=== PATIENT | female | born 1945 | race Caucasian/White ===

== ENCOUNTER 2016-10-04 18:05 | Emergency (ER) | payer MEDICARE, BC ==
[~2016-10-04] VITALS: Ht 162.6 cm; Wt 97.4 kg
[2016-10-04 18:05] VITALS: Ht 162.6 cm; Wt 97.4 kg
[~2016-10-04 18:05] MED LIST: AMLO5TAB2 PO; ASPI81TA2 PO; ATOR40TA64 PO; FLUT1DIS32 IH; FURO20TA4 PO; GUAI-782 PO; HYDR-4246 PO; LORA0.5T2 PO; LOSA50TA52 PO; METO25TA6 PO; OMEP20CA10 PO; TIZA2CAP9 PO; VANC1PLA9 IV
--- OUTSIDE RECORDS SUMMARY | 2016-10-04 18:08 | XMS REPORT | Continuity of Care Document ---
Author Author [facility] Organization [facility] Address Unknown Phone Unavailable Support Name Relationship Address Phone ALFIEKIMMY Caregiver [address] [place] [address] ANDREW COLLINS MD Caregiver [address] [place], [place] [phone] JOSH MONREAL MD Caregiver [address] [place] [address] DHIRAJ CARPIO Next Of Kin [address] [place], [place] [id number] Insurance Providers Payer Name Policy Number Subscriber Name Relationship Medicare [id number] Gila Carpio 16 Self [facility] [id number] Gila Carpio 16 Self Advance Directives Directive Response Recorded Date/Time Advanced Directives Type None 07/15/14 7:33pm Ordered Resuscitation Status Full Code 07/15/14 7:13pm Resuscitation Documents on File No 07/15/14 8:18pm Chief Complaint and Reason for Visit Chief Complaint DIARRHEA Reason for Visit Pneumonia COPD (chronic obstructive pulmonary disease) Hypokalemia Diarrhea Nausea Pneumonia Diarrhea Diarrhea C. difficile colitis CADY (obstructive sleep apnea) Leukocytosis Suspected DVT (deep vein thrombosis) Problems Medical Problems Problem Onset Date Status Metabolic acidosis Unknown Resolved Pneumonia Unknown Resolved Sepsis ~06/2014 Active Hyperosmolality and hypernatremia Unknown Resolved Hypokalemia Unknown Active CAD of autologous bypass graft Unknown Active HTN (hypertension) Unknown Active Hypercholesteremia Unknown Active COPD (chronic obstructive pulmonary disease) Unknown Active GERD (gastroesophageal reflux disease) Unknown Active Depression Unknown Active Headache Unknown Active Postsurgical ovarian failure Unknown Resolved Tachycardia Unknown Active Sepsis Unknown Active Nausea Unknown Active Hyperosmolality and hypernatremia Unknown Active Hypokalemia Unknown Resolved Diarrhea Unknown Active Nausea Unknown Active Pneumonia Unknown Active Diarrhea Unknown Active Diarrhea Unknown Active C. difficile colitis Unknown Active CADY (obstructive sleep apnea) Unknown Resolved Leukocytosis Unknown Resolved Suspected DVT (deep vein thrombosis) 07/20/2014 Active Surgical Problems Problem Onset Date Recorded Date/Time Status Status post partial removal of lung Unknown 07/05/2014 12:09pm Resolved Hx of appendectomy Unknown 07/05/2014 12:09pm Resolved Medications Medication Dose Route Sig Days/Qty Instructions Order Date Discontinued Date Status Salmeterol Xinafoate/Fluticasone 1 Disk IH TWICE A DAY 06/06/0911/04 Discontinued Atorvastatin Calcium 80 Mg PO DAILY 06/06/09 10/10/09 Discontinued Diltiazem Hcl 180 Mg PO DAILY 10/10/09 Active Salmeterol Xinafoate/Fluticasone 1 Disk IH TWICE A DAY 10/10/09 Active [Cozaar] 1 Tab PO DAILY 10/10/09 07/05/14 Discontinued Metoprolol Succinate 50 Mg PO DAILY 07/05/14 Active Fluticasone Propionate 1 Puff ORAL INH TWICE A DAY 07/05/14 Active Prednisone 20 Mg PO GIVE WITH BREAKFAST 12 Days Take 3 tabs daily for 3 days, 2 tabs daily for 3 days, 1 07/12/14 07/21/14 Discontinued Levofloxacin 500 Mg PO BEFORE BREAKFAST 5 Days 07/12/14 07/21/14 Discontinued Metronidazole 500 Mg PO FOUR TIMES DAILY For c diff 28 Qty 07/21/14 Active Omeprazole 20 Mg PO BEFORE BREAKFAST For REFLUX 30 Qty breakfast). 07/21 Active Social History Social History Problem Response Recorded Date/Time Hx Substance Use No 07/15/2014 2:09pm Hx Alcohol Use N QUIT IN 198207/15/2014 2:09pm Has the pt used tobacco in the last 12 months No 07/15/2014 8:19pm Tobacco Usage none 07/05/2014 12:15pm Query Response Start Date Stop Date Smoking Status Former smoker Hospital Discharge Instructions Instructions: Care Instructions: Reason for Hospitalization: C diff colitis I was in the hospital because (patient own words): "EXPLOSIVE DIARRHEA, GENERAL ACHES, DIFFICULTY WALKING DUE TO SWOLLEN FEET" Discharge Diet: Low sodium Discharge Activity: As tolerated Follow Up Appointments: Dr Collins in 1 week [phone] Patient Instructions: Hold asa for 1 week Yogurt once a day Condition at time of discharge: Good Good fever > 101, worsening confusion General Information: n/a Condition at time of discharge: Good Plan of Care Discharge Date 07/21/14 2:35pm Disposition 01 DISCHARGED HOME, SELF-CARE Instructions/Education Provided DI for Antibiotic -- associated Colitis -- C difficile Prescriptions See Medications Section Functional Status Query Response Date Recorded Physical Hygiene Self July 21, 2014 12:45pm Disabilities Visual July 21, 2014 12:45pm Devices Used Glasses July 21, 2014 12:45pm Dressing Self July 21, 2014 12:45pm Ambulation Self July 21, 2014 12:45pm Diet Self July 21, 2014 12:45pm Mental Status Alert Oriented July 21, 2014 12:45pm Disabilities Visual July 21, 2014 12:45pm Devices Used Glasses July 21, 2014 12:45pm Physical Hygiene Self July 21, 2014 12:45pm Dressing Self July 21, 2014 12:45pm Ambulation Self July 21, 2014 12:45pm Diet Self July 21, 2014 12:45pm Allergies, Adverse Reactions, Alerts Allergen Type Severity Reaction Status Last Updated amoxicillin trihydrate Allergy Unknown Active 07/15/14 Sulfa (Sulfonamide Antibiotics) Allergy Unknown Active 07/15/14 potassium clavulanate Allergy Unknown Active 07/15/14 Immunizations Name Given Type Hx Influenza Vaccination Y March 2014 Historical Hx Pneumococcal Vaccination Y March 2014 Historical Hx Tetanus, Diptheria, Pertussis No Historical Hx Influenza Vaccination Y March 2014 Historical Hx Tetanus Diptheria No Historical Hx Tetanus, Diptheria, Pertussis No Historical Hx Tetanus Toxoid Vaccination Y unknown date Historical Vital Signs Acute Vital Signs Vital Response Date/Time Temperature (Fahrenheit) 97.1 deg F (96.8 - 99.1) Temperature (Calculated Celsius) 36.72738 degrees C (36.0 - 37.3) Temperature Source Oral Pulse Rate (adult) 79 bpm (60 - 100) Respiratory Rate 20 breaths/min (10 - 20) O2 Sat by Pulse Oximetry 90 % (90 - 100) Oxygen Delivery Method Room Air Blood Pressure 134/68 mm Hg Blood Pressure Source Automatic Cuff Height 5 ft 4 in Weight 221 lb Body Mass Index 38.0 kg/m^2 Results Test Source Date Result Interp. Ref. Range Comments Activated Partial Thromboplast Time October 10, 2009 3:25pm 31.1 SEC N 24- 36 Alanine Aminotransferase (ALT/SGPT) July 15, 2014 2:24pm 51 U/L N 9- 52 Albumin July 15, 2014 2:24pm 2.8 G/DL L 3.5-5.0 Albumin/Globulin Ratio July 15, 2014 2:24pm 1.2 RATIO N 1.1-2.2 Alkaline Phosphatase July 15, 2014 2:24pm 156 U/L H 38-126 Anion Gap July 21, 2014 4:55am 6 MEQ/L N 5-15 Arterial Blood Base Excess July 05, 2014 8:07am -16.8 MMOL/L L -2.0- 2.0 Arterial Blood HCO3 July 05, 2014 8:07am 8 MEQ/L L 22-26 Arterial Blood Oxygen Saturation July 05, 2014 8:07am 91.0 % L 95.0- 98.0 Arterial Blood Partial Pressure CO2 July 05, 2014 8:07am [address] 34-45 Arterial Blood Total CO2 July 05, 2014 8:07am 8.9 MEQ/L L 23-27 Arterial Blood pH July 05, 2014 8:07am 7.250 L 7.350-7.450 Arterial Blood pO2 at Patient Temp July 05, 2014 8:07am 71 MMHG L 80- 100 Aspartate Amino Transf (AST/SGOT) July 15, 2014 2:24pm 19 U/L N 14- 36 B-Type Natriuretic Peptide October 10, 2009 3:25pm 110 PG/ML H 15-100 BUN/Creatinine Ratio July 21, 2014 4:55am 18 RATIO N 6-26 Band Neutrophils # July 15, 2014 2:24pm 1.1 T/MM3 - Band Neutrophils % July 15, 2014 2:24pm 5.0 % N 0-6 Basophils # (Auto) July 21, 2014 4:55am 0.0 T/MM3 N 0-0.2 Basophils (%) (Auto) July 21, 2014 4:55am 0.1 % N 0-2 Blood Urea Nitrogen July 21, 2014 4:55am 11.0 MG/DL N 7-17 C. difficile Toxin B Gene (PCR) July 15, 2014 6:20pm Positive H - Has specimen been collected/obtained? Y Calcium Level July 21, 2014 4:55am 8.2 MG/DL L 8.4-10.2 Calculated Osmolality July 21, 2014 4:55am 268 MOSM/KG N 261-280 Carbon Dioxide Level July 21, 2014 4:55am 27 MEQ/L N 22-30 Chemistry Specimen Hemolysis July 21, 2014 4:55am < 15 0-25 0-25: No Hemolysis.26-70: Slight Hemolysis - can falsely elevate K and Urine Protein. 71-285: Moderate Hemolysis - can falsely elevate K, Troponin I, CA 19-9, PTH, CSF GLucose, and Urine Protein, and can falsely decrease Phenytoin. 286-999: Gross Hemolysis - can falsely elevate K, Troponin I, CA 19-9, PTH, CSF Glucose, and Urine Protine, and can falsely decrease Phenytoin. Recommend specimen recollection. Chloride Level July 21, 2014 4:55am 107 MEQ/L N 98-107 Creatinine July 21, 2014 4:55am 0.6 MG/DL L 0.7-1.2 D-Dimer July 05, 2014 6:11am 414 NG/ML H 0-230 <230 NG/ML D-DU= PRESUMPTIVE NEGATIVE FOR PE OR DVT>230 NG/ML D-DU=ADDITIONAL EVAL FOR PE OR DVT RECOMMENDED Eosinophils # (Auto) July 21, 2014 4:55am 0.2 T/MM3 N 0-0.5 Eosinophils # (Manual) July 10, 2014 11:22am 0.1 T/MM3 N 0-0.5 Eosinophils % (Manual) July 10, 2014 11:22am 1.0 % N 0-4 Eosinophils (%) (Auto) July 21, 2014 4:55am 2.5 % N 0-4 Globulin July 15, 2014 2:24pm 2.4 G/DL N 2.4-3.6 Glomerular Filtration Rate Calc July 21, 2014 4:55am 99 - Glucometer July 15, 2014 2:37pm 80 mg/dL N 65-110 Glucose Level July 21, 2014 4:55am 100 MG/DL N 65-110 Hematocrit July 21, 2014 4:55am 30.6 % L 36-46 Hemoglobin July 21, 2014 4:55am 9.7 GM/DL L 12-16 Icterus Index July 21, 2014 4:55am < 2 0-7 Immature Granulocyte # (Auto) July 21, 2014 4:55am 0.02 T/MM3 N 0.00- 0.03 Immature Granulocyte % (Auto) July 21, 2014 4:55am 0.3 % N 0.0-0.5 Influenza Type A Antigen July 05, 2014 5:48am Negative - Negative for Flu A protein antigen. Assay sensitivity is90%. Influenza Type B Antigen July 05, 2014 5:48am Negative - Negative for Flu B protein antigen. Assay sensitivity is90%. Lab Scanned Report July 02, 2014 12:29pm LAB TEST FORM REQUEST [id number] - Lipase July 15, 2014 2:24pm 55 U/L N 23-300 Lymphocytes # (Auto) July 21, 2014 4:55am 1.1 T/MM3 N 1-4.8 Lymphocytes # (Manual) July 17, 2014 4:22am 1.1 T/MM3 N 1-4.8 Lymphocytes % (Manual) July 17, 2014 4:22am 9.0 % L 23-45 Lymphocytes (%) (Auto) July 21, 2014 4:55am 16.6 % L 23-45 Magnesium Level July 20, 2014 5:24am 1.8 MG/DL N 1.6-2.3 Mean Corpuscular Hemoglobin July 21, 2014 4:55am 32.6 UUG N 26-34 Mean Corpuscular Hemoglobin Concent July 21, 2014 4:55am 31.7 GM/DL N 31-37 Mean Corpuscular Volume July 21, 2014 4:55am 102.7 UM3 H 80-100 Mean Platelet Volume July 21, 2014 4:55am 9.2 UM3 L 9.4-12.4 Metamyelocytes # July 08, 2014 4:44am 0.1 T/MM3 - Metamyelocytes % July 08, 2014 4:44am 1.0 % H 0-0 Monocytes # (Auto) July 21, 2014 4:55am 0.4 T/MM3 N 0-0.8 Monocytes # (Manual) July 16, 2014 4:32am 0.2 T/MM3 N 0-0.8 Monocytes % (Manual) July 16, 2014 4:32am 1.0 % N 0-9.0 Monocytes (%) (Auto) July 21, 2014 4:55am 6.3 % N 0-9.0 YT-Ytc-F-Type Natriuretic Peptide July 02, 2014 10:15am 527 PG/ML H 0 -175 Rule in cut points: <50 years old=450; 50-75 years old=900; >75 years old=1800; When utilizing ProBNP rule-in cut points, adjustment for impaired renal function is typically not required. Neutrophils # (Auto) July 21, 2014 4:55am 5.0 T/MM3 N 1.8-7.7 Neutrophils # (Manual) July 17, 2014 4:22am 11.5 T/MM3 H 1.8-7.7 Neutrophils % (Manual) July 17, 2014 4:22am 91.0 % H 33-66 Neutrophils (%) (Auto) July 21, 2014 4:55am 74.2 % H 33-66 Nucleated Red Blood Cells July 07, 2014 4:34am 2 - Oxygen Delivery Method (LAB) July 05, 2014 8:07am Room air - Phosphorus Level July 09, 2014 5:01am 2.1 MG/DL L 2.5-4.5 Platelet Count July 21, 2014 4:55am 154 T/MM3 N 130-400 Potassium Level July 21, 2014 4:55am 3.5 MEQ/L L 3.6-5 Prealbumin July 05, 2014 6:11am 15.8 MG/DL L 17.6-36.0 COMMENT blood in lab Procalcitonin July 09, 2014 5:01am 4.31 NG/ML PH - PCT </=0.5 ng/mL - sepsis not likely;PCT >0.5 and </=2 ng/mL - sepsis possible; PCT >2 ng/mL - sepsis likely; PCT >/=10 ng/mL - systemic inflammatory response - sepsis or septic shock highly indicated. Prothromb Time International Ratio October 10, 2009 3:25pm 1.07 N 0.88- 1.13 THERAPUTIC RANGE=2.00-3.00 FOR ANTI-THROMBOSIS THERAPUTIC RANGE=2.50- 3.50 FOR IMPLANTED VALVE RDW Standard Deviation July 21, 2014 4:55am 53.5 FL H 36.9-50.2 Reactive Lymphocytes # July 09, 2014 5:01am 0.1 T/MM3 H 0-0 Reactive Lymphocytes % July 09, 2014 5:01am 1.0 % H 0-0 Red Blood Count July 21, 2014 4:55am 2.98 M/MM3 L 4.00-5.20 Sodium Level July 21, 2014 4:55am 140 MEQ/L N 134-144 Thyroid Stimulating Hormone (TSH) July 05, 2014 6:11am 1.74 MIU/L N 0.47-4.68 COMMENT blood in lab Total Bilirubin July 15, 2014 2:24pm 0.70 MG/DL N 0.20-1.30 Total Protein July 15, 2014 2:24pm 5.2 G/DL L 6.3-8.2 Troponin I July 05, 2014 6:11am 0.036 ng/ml N 0-0.12 Turbidity July 21, 2014 4:55am < 20 0-20 Urine Amorphous Urates July 05, 2014 12:00am Few - Has specimen been collected/obtained? Y Urine Bacteria July 15, 2014 5:09pm 1+ H - Has specimen been collected/obtained? Y Urine Bilirubin July 15, 2014 5:09pm Negative - Has specimen been collected/obtained? Y Urine Blood July 15, 2014 5:09pm Negative - Has specimen been collected/obtained? Y Urine Collection Type July 15, 2014 5:09pm Voided-not cc-midstr - Has specimen been collected/obtained? Y Urine Color July 15, 2014 5:09pm Yellow - Has specimen been collected/obtained? Y Urine Culture Indicated July 15, 2014 5:09pm Cult reflexed &setup - Has specimen been collected/obtained? Y Urine Glucose (UA) July 15, 2014 5:09pm Negative - Has specimen been collected/obtained? Y Urine Hyaline Casts July 15, 2014 5:09pm 1-3 /LPF - Has specimen been collected/obtained? Y Urine Ketones July 15, 2014 5:09pm Trace H - Has specimen been collected/obtained? Y Urine Leukocyte Esterase July 15, 2014 5:09pm Negative - Has specimen been collected/obtained? Y Urine Nitrite July 15, 2014 5:09pm Positive H - Has specimen been collected/obtained? Y Urine Protein July 15, 2014 5:09pm 1+ H - Has specimen been collected/obtained? Y Urine RBC July 15, 2014 5:09pm 1-3 /HPF - Has specimen been collected/obtained? Y Urine Specific [place] July 15, 2014 5:09pm 1.025 - Has specimen been collected/obtained? Y Urine Squamous Epithelial Cells July 15, 2014 5:09pm 0-5 - Has specimen been collected/obtained? Y Urine Turbidity July 15, 2014 5:09pm Clear - Has specimen been collected/obtained? Y Urine Urobilinogen July 15, 2014 5:09pm 1.0 EU/DL - Has specimen been collected/obtained? Y Urine WBC July 15, 2014 5:09pm 3-5 /HPF - Has specimen been collected/obtained? Y Urine pH July 15, 2014 5:09pm 5.5 - Has specimen been collected/ obtained? Y Venous Blood Lactate July 05, 2014 8:20am 1.3 MMOL/L N 0.6-2.2 Vitamin B12 Level July 05, 2014 6:11am > 1000 PG/ML H 239-931 COMMENT blood in lab White Blood Count July 21, 2014 4:55am 6.8 T/MM3 N 4.5-11.0 Blood Culture Peripheral Blood July 05, 2014 8:20am NO GROWTH AFTER 5 DAYS Shiga Toxin I & II Stool July 15, 2014 6:20pm Urine Culture Urine, Straight Cath July 15, 2014 5:25pm Name: GILA CARPIO Unit #: [id number] : 1945 Sex: F Loc / Svc: MED DOS: 07/15/14 Signed Report #: [id number] DIAGNOSTIC IMAGING REPORT TYPE OF EXAM: US VENOUS DUPLEX, UPPER EXT LT Dictated By: LUC BAUER MD INDICATION: ITS.REASON: left arm swelling; hx of recent PICC to arm US VENOUS DUPLEX, UPPER EXT LT: Comparison: None FINDINGS: There is no evidence for acute deep venous thrombosis in the left arm. The left internal jugular, subclavian, axillary and paired brachial veins were evaluated; compression and augmentation were applied where possible. In addition, color and pulsed Doppler demonstrate appropriate spontaneous flow, cardiac pulsatility and variation with respiration. IMPRESSION: No evidence of acute DVT in the left upper extremity. . Procedures Procedure Status Date Provider(s) METABOLIC PANEL TOTAL CA completed 05/11/14 METABOLIC PANEL TOTAL CA completed 07/02/14 ASSAY OF NATRIURETIC PEPTIDE completed 07/02/14 FIBRIN DEGRADATION QUANT completed 07/02/14 POS AIRWAY PRESSURE CPAP completed 07/05/14 GA ABRAMS MD Encounters Encounter Location Date/Time Discharged Inpatient [facility] 07/16/14 11:56am Discharged Inpatient [facility] 07/05/14 9:55am Registered Clinic [facility] 07/02/14 10:30am Registered Clinic [facility] 05/11/14 10:24am Recent Diagnosis Pneumonia COPD (chronic obstructive pulmonary disease) Hypokalemia Diarrhea Nausea Pneumonia Diarrhea Diarrhea C. difficile colitis CADY (obstructive sleep apnea) Leukocytosis Suspected DVT (deep vein thrombosis)
--- OUTSIDE RECORDS SUMMARY | 2016-10-04 18:08 | XMS REPORT | Referral Summary ---
Author Author [facility], [facility] Organization [facility] Address Unknown Phone Unavailable Care Team Providers Care Solution Advisor Name Role Phone Jeimy Black Primary Care Physician [phone] Encounter VC Date(s): 06/23/16 - 06/23/16 [facility] [address] [place] [id number] Discharge Diagnosis: Peripheral edema Discharge Diagnosis: COPD (chronic obstructive pulmonary disease) Discharge Diagnosis: History of MRSA infection Discharge Disposition: 01-Home or Self Care Attending Physician: Paulino Horn MD Admitting Physician: Paulino Horn MD Vital Signs Most recent to 1 oldest [Reference Range]: Peripheral Pulse 69 bpm Rate [60-100 bpm] (06/23/16 3:45 PM) Blood Pressure 128/70 mmHg [90-140/60-90 mmHg] (06/23/16 3:45 PM) SpO2 90 % (06/23/16 3:45 PM) Problem List Condition Effective Dates Status Health Status Informant Alcoholism(Confirmed < 05/07/14 Resolved ) Allergic Active rhinitis(Confirmed) Asthma(Confirmed) Active Back/Shoulder/Joint Active pain(Confirmed) Bronchitis(Confirmed Active ) 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) Angina/Chest Active pain(Confirmed) COPD (chronic Active obstructive pulmonary disease)(Confirmed) Chronic pain Active syndrome(Confirmed) CAD (coronary artery Active disease)(Confirmed) Depression(Confirmed Active ) Taryn-Dontal Active Disease(Confirmed) Visual Active problems(Confirmed) Dizziness(Confirmed) Active 1 Feet/Legs Active Edema(Confirmed)2 GERD Active (gastroesophageal reflux disease)(Confirmed) High Active cholesterol(Confirme d) Hypertension(Confirm Active ed) Insomnia(Confirmed) Active Irregular heart Active rhythm(Confirmed) Migraine(Confirmed) Active Obesity(Confirmed) Active patient Overweight(Confirmed Active ) Pure Active hypercholesterolemia (Confirmed) Sinus Active infection(Confirmed) Sleep Active apnea(Confirmed) Solitary pulmonary Active nodule(Confirmed) Tension Active headache(Confirmed)3 Ulcers(Confirmed) Active Chicken Active pox(Confirmed) 1When I Lay down in Bed at night - Just Briefly 2OCCAS 3Stress Allergies, Adverse Reactions, Alerts Substance Reaction Severity Status sulfamethoxazole severe illness Active Medications Advair Diskus 500 mcg-50 mcg inhalation powder See Instructions, INHALE ONE PUFF BY MOUTH TWICE A DAY RINSE MOUTH AND THROAT AFTER USE, # 60 unknown unit, eRx: [facility] #[id number] Start Date: 06/23/16 Status: Ordered aspirin 81 mg, Oral, Daily, 1 tab, 0 Refill(s) Start Date: 05/10/14 Status: Ordered atorvastatin 40 mg oral tablet See Instructions, TAKE ONE TABLET BY MOUTH EVERY NIGHT AT BEDTIME, # 90 tabs, 1 Refill(s), eRx: [facility] #[id number], TAKE ONE TABLET BY MOUTH EVERY NIGHT AT BEDTIME Start Date: 01/20/16 Status: Ordered Coricidin 325 mg-2 mg oral tablet 2 tabs, Oral, qAM, as needed for allergy symptoms, 0 Refill(s) Start Date: 02/12/14 Status: Ordered Cozaar 100 mg oral tablet 100 mg 1 tabs, Oral, Daily, [place] [facility] [place], # 90 tabs, 3 Refill(s), Pharmacy: [facility] #[id number] Start Date: 07/01/15 Status: Ordered CPAP Machine (DME) DME Item at bedtime ([facility]), See Instructions, # 1 Each, 0 Refill(s), Supply Start Date: 06/04/15 Status: Ordered Home Oxygen (DME) DME Item 2L/min, See Instructions, # 1 Each, 0 Refill(s), Supply Start Date: 05/29/16 Status: Ordered Lasix 20 mg oral tablet See Instructions, TAKE ONE TABLET BY MOUTH DAILY UNTIL FOLLOW UP WITH DR. FOOTE , # 60 tabs, 1 Refill(s), eRx: [facility] #[id number], TAKE ONE TABLET BY MOUTH DAILY UNTIL FOLLOW UP WITH DR. FOOTE Start Date: 05/06/15 Status: Ordered LORazepam 0.5 mg oral tablet 0.5 mg 1 tabs, Oral, q4hr, as needed for air hunger/anxiety, 0 Refill(s) Start Date: 06/18/16 Status: Ordered metoprolol tartrate 25 mg oral tablet 25 mg 1 tabs, Oral, BID, # 60 tabs, 0 Refill(s) Start Date: 10/08/15 Status: Ordered Misc Medication Quercetin Bromelain 500/250 - 5 times daily., 0 Refill(s) Start Date: 01/17/15 Status: Ordered Mucinex DM 30 mg-600 mg oral tablet, extended release 1 tabs, Oral, q12hr, 0 Refill(s) Start Date: 06/18/16 Status: Ordered [place] 5 mg-325 mg oral tablet 1-2 tabs, Oral, q6hr, 0 Refill(s) Start Date: 06/18/16 Status: Ordered Norvasc 5 mg, Oral, Daily, 0 Refill(s) Start Date: 09/19/15 Status: Ordered PriLOSEC OTC 20 mg oral delayed release tablet 20 mg 1 tabs, Oral, Daily, # 90 tabs, 3 Refill(s), Pharmacy: [facility] # [id number], 1 tabs Oral Daily Start Date: 11/08/14 Status: Ordered ProAir HFA 90 mcg/inh inhalation aerosol 1 puffs, Inhalation, QID, as needed for wheezing, # 8.5 g, 3 Refill(s), Pharmacy : [facility] #[id number] Start Date: 01/07/15 Status: Ordered tiZANidine 2 mg oral tablet See Instructions, TAKE 2-4 TABLETS BY MOUTH DAILY, # 120 tabs, 3 Refill(s), Pharmacy: [facility] #[id number], TAKE 2-4 TABLETS BY MOUTH DAILY Start Date: 03/05/16 Status: Ordered Tylenol with Codeine #3 oral tablet 1-2 tabs, Oral, q6hr, as needed for pain, must last 30 days, # 200 tabs, 2 Refill(s) Start Date: 06/15/16 Status: Ordered vancomycin 1 g intravenous injection 1 g, IV, q12hr, X 30 days, 0 Refill(s) Start Date: 06/18/16 Stop Date: 07/11/16 Status: Ordered Results No data available for this section Immunizations Given and Recorded Vaccine Date Status Refusal Reason tetanus/diphth/pertuss (Tdap) adult/adol 06/05/10 Recorded influenza virus vaccine, inactivated 05/23/16 Recorded influenza virus vaccine, inactivated 05/16/15 Given influenza virus vaccine, inactivated1 05/10/14 Recorded influenza virus vaccine, live 05/03/13 Given pneumococcal 13-valent conjugate vaccine 05/10/14 Given zoster vaccine live 08/08/10 Given 1Result Comment: [05/10/2014] see scaned doc Procedures Procedure Date Related Diagnosis Body Site Bone densimetry normal 10/09/13 Mammogram 10/09/13 Colonoscopy 06/06/09 History of lung surgery 2001 Angioplasty 1994 Hysterectomy 1970 Adenoidectomy Appendectomy Breast biopsy and related procedures Dilation and curettage Stent placement Tonsillectomy Uses CPAP @ Night Social History Social History Type Response Smoking Status Former smoker; Type: Cigarettes; Tobacco use per day: 2.5; Number of years: 451 1Quit 2003. Assessment and Plan Extracted from: Title: Acute OV-LE Swelling Author: Paulino Horn MD Date: 06/23/16 Impression and Plan Diagnosis COPD (chronic obstructive pulmonary disease) ([id number] J44.9, Discharge, Medical ). History of MRSA infection ([id number] Z86.14, Discharge, Medical). Peripheral edema ([id number] R60.9, Discharge, Medical).
--- OUTSIDE RECORDS SUMMARY | 2016-10-04 18:09 | XMS REPORT | Continuity of Care Document ---
Author Author [facility] Address Unknown Phone Unavailable Support Name Relationship Address Phone SAQIB AGUILAR MD Caregiver [address] [place] [id number] Unavailable ERNESTINA DEMPSEY MD Caregiver [address] [place] [address] Unavailable ROGER BLACK DO Caregiver Unknown Unavailable JORJE DHIRAJ Next Of Kin [address] [place] [address] Insurance Providers Guarantor Gila Carpio Address [address] [place] [address] Email [email or web address] [facility] Policy Number [id number] Subscriber's Name Gila Carpio Relationship 18 Self Group Number [id number] Group Name PLANF Payer Medicare Policy Number [id number] Subscriber's Name Gila Carpio Relationship 18 Self Advance Directives Directive Response Recorded Date/Time Dr Ordered Resuscitation Status Full Code 06/11/16 1:25pm DPOA for Healthcare Only No 06/11/16 11:21am Living Will No 06/11/16 11:21am Problems Active Problems Medical Problem Onset Date Status Abnormal chest CT Unknown Anemia Unknown Acute Bacteremia due to Staphylococcus aureus Unknown Acute Bacteremia due to methicillin resistant Staphylococcus aureus Unknown Acute C. difficile colitis ~07/15/2014 Resolved CAD (coronary artery disease) Unknown Chronic CAD of autologous bypass graft Unknown Chronic COPD (chronic obstructive pulmonary disease) Unknown Acute COPD exacerbation Unknown Resolved Centrilobular emphysema Unknown Chronic Chest pain Unknown Acute Depression Unknown Chronic Diarrhea Unknown Acute Diarrhea Unknown Acute Diarrhea Unknown Acute GERD (gastroesophageal reflux disease) Unknown Chronic HTN (hypertension) Unknown Chronic Headache Unknown Acute Hypercholesteremia Unknown Chronic Hyperosmolality and hypernatremia Unknown Resolved Hyperosmolality and hypernatremia Unknown Acute Hypokalemia Unknown Acute Hypokalemia Unknown Resolved Hypoxia Unknown Acute Leukocytosis Unknown Resolved Leukocytosis Unknown Resolved Metabolic acidosis Unknown Acute Metabolic acidosis Unknown Resolved Nausea Unknown Acute Nausea Unknown Acute Nausea & vomiting Unknown Acute CADY (obstructive sleep apnea) Unknown Chronic Obesity (BMI 30-39.9) Unknown Chronic Pleural pain Unknown Acute Pneumonia Unknown Resolved Pneumonia Unknown Acute Postsurgical ovarian failure Unknown Resolved Pseudomembranous colitis Unknown Acute RLL pneumonia Unknown Acute Rhinovirus Unknown Resolved Rhinovirus infection Unknown Acute Rib pain on right side Unknown Acute Right middle lobe pneumonia Unknown Acute Sepsis ~06/2014 Acute Sepsis Unknown Acute Sleep apnea Unknown Acute Suspected DVT (deep vein thrombosis) 07/20/2014 Acute Tachycardia Unknown Acute Surgical Problem Onset Date Status Hx of appendectomy Unknown Resolved Status post partial removal of lung Unknown Resolved Past Problems Medical Problem Onset Date COPD exacerbation Unknown Medications Current Home Medications Medication Dose Units Route Directions Days Qty Instructions Start Date Amlodipine Besylate 5 Mg Tablet 5 Mg Oral Daily 05/26/16 Aspirin 81 Mg Tab.chew 81 Mg Oral Daily 08/26/15 Atorvastatin Calcium 40 Mg Tablet 40 Mg Oral Bedtime 90 06/10/16 Furosemide 20 Mg Tablet 20 Mg Oral Daily as needed for Prn Orders 05/26/16 Guaifenesin/Dextromethorphan (Mucinex Dm Er 600-30 Mg Tablet) 1 Each Tab.er.12h 1 Tab Oral Every 12 Hours for Cough/Congestion 30 Tablet 06/16/16 Hydrocodone/Acetaminophen (Meigs 5-325 Tablet) 5-325 Tablet 1-2 Tab Oral Every 6 Hours as needed for Pain 40 Tablet 06/16/16 Lorazepam 0.5 Mg Tablet 0.5 Mg Oral Every 4 Hours as needed for Air Hunger/ Anxiety 40 Tablet 06/16/16 Losartan Potassium 50 Mg Tablet 50 Mg Oral Daily 30 Tablet 06/16/16 Metoprolol Tartrate 25 Mg Tablet 25 Mg Oral Twice A Day 06/10/16 Omeprazole 20 Mg Capsule.dr 20 Mg Oral Before Breakfast 06/10/16 Salmeterol Xinafoate/Fluticasone (Advair 500-50 Diskus) 1 Each Disk.w.dev 1 Disk Inhalation Twice A Day 10/10/09 Tizanidine Hcl 2 Mg Capsule 2 Mg Oral Four Times Daily as needed for Prn Orders 05/26/16 Vancomycin/0.9 % Sod Chloride (Vanco 1 Gram/250 Ml-0.9% Nacl) 1 Gm/250 Ml Plast..bag 1 G Intraven Every 12 Hours for Bacteremia 47 06/16/16 Past Home Medications Medication Directions Ordered Status Acetaminophen/Chlor-Mal (Coricidin Hbp Cold & Flu Tab) 1 Tab Tablet, as needed for Prn Orders 05/26/16 Discontinued Acetaminophen/Chlor-Mal (Coricidin Hbp Cold & Flu Tab) 1 Tab Tablet, as needed for Prn Orders 08/26/15 Discontinued Atorvastatin Calcium 10 Mg Tablet, 1 Tab Oral Daily 08/27/15 Discontinued Atorvastatin Calcium (Lipitor) 80 Mg Tablet, 80 Mg Oral Daily 06/06/09 Discontinued Cozaar , 1 Tab Oral Daily 10/10/09 Discontinued Guaifenesin (Mucinex) 600 Mg Tbbp.12hr, 600 Mg Oral Every 12 Hours 05/28/16 Discontinued Ibuprofen 200 Mg Tablet, 3 Tab Oral Every 4 Hours as needed for Prn Orders Discontinued Levofloxacin (Levaquin) 500 Mg Tablet, 1 Tab-Cap Oral Daily 11/27/14 Discontinued Levofloxacin 500 Mg Tablet, 500 Mg Oral Before Breakfast 07/12/14 Discontinued Losartan Potassium (Cozaar) 100 Mg Tablet, 100 Mg Oral Daily 05/26/16 Discontinued Metronidazole 500 Mg Tablet, 500 Mg Oral Four Times Daily for C Diff Discontinued Prednisone 20 Mg Tablet, 40 Mg Oral Give With Breakfast 11/27/14 Discontinued Prednisone 20 Mg Tablet, 20 Mg Oral Give With Breakfast 07/12/14 Discontinued Quercetin Bromelain , 5 Times Daily 08/26/15 Discontinued Salmeterol Xinafoate/Fluticasone (Advair 250-50 Diskus) 1 Each Disk.w.dev, 1 Disk Inhalation Twice A Day 06/06/09 Discontinued Social History Social History Problem Response Recorded Date/Time Onset Date Status Reason for Hospitalization Sepsis 06/16/2016 11:17am Not Applicable Not Applicable Hx Substance Use No 06/10/2016 3:27pm Not Applicable Not Applicable Hx Alcohol Use N QUIT IN 198206/10/2016 3:27pm Not Applicable Not Applicable Has the pt used tobacco in the last 12 months No 06/11/2016 11:23am Not Applicable Not Applicable Quit (MM/YYYY) 11 years ago 08/27/2015 11:59am Not Applicable Not Applicable Tobacco Usage none 08/27/2015 11:31am Not Applicable Not Applicable Query Response Start Date Stop Date Smoking Status Former smoker Hospital Discharge Instructions Instructions: Care Instructions: Reason for Hospitalization: Sepsis I was in the hospital because (patient own words): "MRSA IN MY BLOOD" Discharge Diet: Low sodium Discharge Activity: As tolerated Follow Up Appointments: Twice daily Vancomycin infusions in infusion center until 07/10/2016 Weekly CBC, BMP, Vanco at infusion center on Mondays Dr Black in 1 week for medical follow up [phone] 06/30 9:30. Dr Newell on the first of second week of 2016 06/30 AT 2:20. Pending Lab / Results: No Pending Lab Patient Instructions: Use Acapella 4 times a day Routine PICC line care Continue O2 and CPAP use Wound/Incision Care: n/a Pain Management/Treatment: Meigs as needed Expected Signs/Symptoms: Improvement of breathing and functinonal status Notify Physician If: Temp >100.4. Increasing difficulty breathing or worsening cough During Business Hours:: Please call the physician's office at After Business Hours:: Please call [phone] and have the floor press operator page the physician. Condition at time of discharge: Good Plan of Care Discharge Date 06/16/16 12:08pm Disposition 01 DISCHARGED HOME, SELF-CARE Instructions/Education Provided DI for Methicillin-Resistant Staph Infection ( MRSA) Prescriptions See Medication Section Care Plan and Goals See Discharge Instructions Section Functional Status Query Response Date Recorded Mobility Status Ambulatory June 16, 2016 11:17am Assistive Devices None June 16, 2016 11:17am Activity Limitations Weakness Fatigue Shortness of breath Pain Cough June 16, 2016 11:17am Feeding Ability Independent June 16, 2016 11:17am Toileting Ability Independent June 16, 2016 11:17am Grooming Ability Independent June 16, 2016 11:17am Dressing Ability Independent June 16, 2016 11:17am Driving Ability Independent June 16, 2016 11:17am Housework Ability Independent June 16, 2016 11:17am Meal Preparation Ability Independent June 16, 2016 11:17am Stair Climbing Ability Assist June 16, 2016 11:17am Ability to complete ADL's impeded by No change June 16, 2016 11:17am Cognitive/Perceptual Impairments Impaired vision June 16, 2016 11:17am Visual Assistive Devices Glasses June 14, 2016 10:54am Allergies, Adverse Reactions, Alerts Allergen Type Severity Reaction Status Last Updated amoxicillin trihydrate Allergy Unknown Active 06/11/16 Sulfa (Sulfonamide Antibiotics) Allergy Unknown Active 06/11/16 potassium clavulanate Allergy Unknown Active 06/11/16 Immunizations Query Response on File Recorded Date/Time Hx Influenza Vaccination Y APR 2016 06/11/16 11:23am Hx Pneumococcal Vaccination Y March 2014/REPORTS HAVING HAD THE SECOND ONE WELL 06/11/16 11:23am Hx Tetanus, Diptheria, Pertussis No 11/27/14 7:42pm Hx Influenza Vaccination Y APR 2016 06/11/16 11:23am Hx Tetanus Diptheria No 11/27/14 7:42pm Hx Tetanus, Diptheria, Pertussis No 11/27/14 7:42pm Hx Tetanus Toxoid Vaccination Y unknown date 07/05/14 11:39am Influenza Vaccine Hx APR 2016 06/11/16 11:26am Vital Signs Acute Vital Signs Vital Response Date/Time Temperature (Fahrenheit) 96.5 deg F (96.8 - 99.1) 06/16/2016 7:00am Temperature (Calculated Celsius) 35.57486 degrees C (36.0 - 37.3) 06/16/2016 7:00am Pulse Rate (adult) 69 bpm (60 - 100) 06/16/2016 7:00am Respiratory Rate 20 breaths/min (10 - 20) 06/16/2016 7:00am O2 Sat by Pulse Oximetry 91 % (90 - 100) 06/16/2016 7:00am Oxygen Delivery Method Nasal Cannula 06/16/2016 12:04pm Oxygen Delivery Method Nasal Cannula 06/16/2016 7:00am Oxygen Flow Rate 2.00 L/min 06/16/2016 12:04pm Blood Pressure 99/58 mm Hg 06/16/2016 7:00am Blood Pressure Source Automatic Cuff 06/16/2016 7:00am Height (Feet) 5 feet 06/16/2016 10:42am Height (Inches) 4.00 inches 06/16/2016 10:42am Weight (Kilograms) 105.400 kg 06/16/2016 8:30am Body Mass Index (BMI) 36.9 06/11/2016 11:02am Results Laboratory Results Test Name Result Units Flags Reference Collection Date/Time Result Date/ Time Comments Unconjugated Bilirubin 0.40 MG/DL 0.00-1.10 05/26/2016 1:14pm 2015 3:24pm Conjugated Bilirubin 0.00 MG/DL 0.00-0.30 05/26/2016 1:14pm 05/26/2016 3:24pm Stool Campylobacter PCR NEGATIVE NEGATIVE 05/27/2016 6:45am 2015 8:31am Stool C. difficile Toxin (PCR) DETECTED *A NEGATIVE 05/27/2016 6:45am 05/27/2016 8:31am Stool Plesiomonas shigelloides PCR NEGATIVE NEGATIVE 05/27/2016 6: 45am 05/27/2016 8:31am Stool Salmonella PCR NEGATIVE NEGATIVE 05/27/2016 6:45am 05/27/2016 8 :31am Stool Vibrio (PCR) NEGATIVE NEGATIVE 05/27/2016 6:45am 05/27/2016 8: 31am Stool Vibrio cholera (PCR) NEGATIVE NEGATIVE 05/27/2016 6:45am 2015 8:31am Stool Yersinia enterocolitica (PCR) NEGATIVE NEGATIVE 05/27/2016 6: 45am 05/27/2016 8:31am Stool Enteroaggregative E. coli PCR NEGATIVE NEGATIVE 05/27/2016 6: 45am 05/27/2016 8:31am Stool Enteropathogenic E. coli (PCR NEGATIVE NEGATIVE 05/27/2016 6: 45am 05/27/2016 8:31am Stool Enterotoxigenic Ecoli PCR NEGATIVE NEGATIVE 05/27/2016 6:45am 05/27/2016 8:31am Stool E. coli Shiga Toxins NEGATIVE NEGATIVE 05/27/2016 6:45am 2015 8:31am Stool E coli O157 PCR N/A NA/NEG 05/27/2016 6:45am 05/27/2016 8:31am Stool Shigella/EIEC (PCR) NEGATIVE NEGATIVE 05/27/2016 6:45am 2015 8:31am Stool Cryptosporidium PCR NEGATIVE NEGATIVE 05/27/2016 6:45am 2015 8:31am Stool Cyclospora species Detection NEGATIVE NEGATIVE 05/27/2016 6: 45am 05/27/2016 8:31am Stool Entamoeba (PCR) NEGATIVE NEGATIVE 05/27/2016 6:45am 05/27/2016 8:31am Stool Giardia Lamblia PCR NEGATIVE NEGATIVE 05/27/2016 6:45am 2015 8:31am Stool Adenovirus (PCR) NEGATIVE NEGATIVE 05/27/2016 6:45am 2015 8:31am Stool Astrovirus (PCR) NEGATIVE NEGATIVE 05/27/2016 6:45am 2015 8:31am Stool Norovirus GI/GII PCR NEGATIVE NEGATIVE 05/27/2016 6:45am 2015 8:31am Stool Rotavirus A PCR NEGATIVE NEGATIVE 05/27/2016 6:45am 05/27/2016 8:31am Stool Sapovirus (PCR) NEGATIVE NEGATIVE 05/27/2016 6:45am 05/27/2016 8:31am Adenovirus (PCR) NEGATIVE NEGATIVE 05/26/2016 12:39pm 05/26/2016 2: 08pm Coronavirus Type 229E (PCR) NEGATIVE NEGATIVE 05/26/2016 12:39pm 2:08pm Coronavirus Type HKU1 (PCR) NEGATIVE NEGATIVE 05/26/2016 12:39pm 2:08pm Coronavirus Type NL63 (PCR) NEGATIVE NEGATIVE 05/26/2016 12:39pm 2:08pm Coronavirus Type OC43 (PCR) NEGATIVE NEGATIVE 05/26/2016 12:39pm 2:08pm Human Metapneumovirus (PCR) NEGATIVE NEGATIVE 05/26/2016 12:39pm 2:08pm Enterovirus/Rhinovirus (PCR) DETECTED A NEGATIVE 05/26/2016 12:39pm 2:08pm Influenza Virus Type A (PCR) NEGATIVE NEGATIVE 05/26/2016 12:39pm 2:08pm Influenza Virus Type B (PCR) NEGATIVE NEGATIVE 05/26/2016 12:39pm 2:08pm Parainfluenza Type 1 (PCR) NEGATIVE NEGATIVE 05/26/2016 12:39pm 05/26 2:08pm Parainfluenza Type 2 (PCR) NEGATIVE NEGATIVE 05/26/2016 12:39pm 05/26 2:08pm Parainfluenza Type 3 (PCR) NEGATIVE NEGATIVE 05/26/2016 12:39pm 05/26 2:08pm Parainfluenza Type 4 (PCR) NEGATIVE NEGATIVE 05/26/2016 12:39pm 05/26 2:08pm Respiratory Syncytial Virus (PCR) NEGATIVE NEGATIVE 05/26/2016 12: 39pm 05/26/2016 2:08pm Bordetella parapertussis DNA (PCR) NEGATIVE NEGATIVE 05/26/2016 12: 39pm 05/26/2016 2:08pm Chlamydia pneumoniae DNA (PCR) NEGATIVE NEGATIVE 05/26/2016 12:39pm 05/26/2016 2:08pm Mycoplasma pneumoniae (PCR) NEGATIVE NEGATIVE 05/26/2016 12:39pm 2:08pm Urine Collection Type CLEANCATCH-[place]IDSTREAM 05/26/2016 1:28pm 2015 1:36pm Urine Color YELLOW YELLOW 05/26/2016 1:28pm 05/26/2016 1:36pm Urine Turbidity CLEAR CLEAR 05/26/2016 1:28pm 05/26/2016 1:36pm Urine Specific [place] 1.025 1.015-1.025 05/26/2016 1:28pm 2015 1:36pm Urine pH 6.0 5.0-8.0 05/26/2016 1:28pm 05/26/2016 1:36pm Urine Leukocyte Esterase NEGATIVE NEGATIVE 05/26/2016 1:28pm 2015 1:36pm Urine Nitrite NEGATIVE NEGATIVE 05/26/2016 1:28pm 05/26/2016 1:36pm Urine Protein TRACE A NEGATIVE 05/26/2016 1:28pm 05/26/2016 1:36pm Urine Glucose (UA) NEGATIVE NEGATIVE 05/26/2016 1:28pm 05/26/2016 1: 36pm Urine Ketones 1+ A NEGATIVE 05/26/2016 1:28pm 05/26/2016 1:36pm Urine Urobilinogen 0.2 EU/DL NORMAL 05/26/2016 1:28pm 05/26/2016 1: 36pm Urine Bilirubin 1+ A NEGATIVE 05/26/2016 1:28pm 05/26/2016 1:36pm Urine Blood NEGATIVE NEGATIVE 05/26/2016 1:28pm 05/26/2016 1:36pm Urinalysis Comment MICROSCOPIC NOT IND. 05/26/2016 1:28pm 2015 1:36pm Glucometer 138 mg/dL H 65-110 05/28/2016 6:43am 05/28/2016 10:44am D-Dimer 306 NG/ML H 0-230 06/10/2016 4:31pm 06/10/2016 4:53pm <230 NG/ ML D-DU=PRESUMPTIVE NEGATIVE FOR PE OR DVT >230 NG/ML D-DU=ADDITIONAL EVAL FOR PE OR DVT RECOMMENDED Troponin I < 0.012 ng/ml 0-0.12 06/10/2016 4:31pm 06/10/2016 5:07pm Troponin values with a difference of 55% increase from orginal troponin value represent a true biological DELTA value. (%increase Calc=Orginal Troponin value, divided by subsequent Troponin value, multiplied by 100) QO-Gyn-T-Type Natriuretic Peptide 574 PG/ML H 0-175 06/10/2016 4:31pm 5:07pm Rule in cut points: <50 years old=450; 50-75 years old=900; >75 years old=1800; When utilizing ProBNP rule-in cut points, adjustment for impaired renal function is typically not required. White Blood Count 7.4 T/MM3 4.5-11.0 06/16/2016 3:58am 06/16/2016 4: 53am Red Blood Count 3.18 M/MM3 L 4.00-5.20 06/16/2016 3:58am 06/16/2016 4: 53am Hemoglobin 9.8 GM/DL L 12-16 06/16/2016 3:58am 06/16/2016 4:53am Hematocrit 32.2 % L 36-46 06/16/2016 3:58am 06/16/2016 4:53am Mean Corpuscular Volume 101.3 UM3 H 80-100 06/16/2016 3:58am 06/16/2016 4:53am Mean Corpuscular Hemoglobin 30.8 UUG 26-34 06/16/2016 3:58am 2015 4:53am Mean Corpuscular Hemoglobin Concent 30.4 GM/DL L 31-37 06/16/2016 3:58am 06/16/2016 4:53am RDW Standard Deviation 44.7 FL 36.9-50.2 06/16/2016 3:58am 06/16/2016 4 :53am Platelet Count 371 T/MM3 130-400 06/16/2016 3:58am 06/16/2016 4:53am Mean Platelet Volume 8.7 UM3 L 9.4-12.4 06/16/2016 3:58am 06/16/2016 4: 53am Neutrophils (%) (Auto) 64.2 % 33-66 06/16/2016 3:58am 06/16/2016 4: 53am Lymphocytes (%) (Auto) 21.0 % L 23-45 06/16/2016 3:58am 06/16/2016 4: 53am Monocytes (%) (Auto) 8.2 % 0-9.0 06/16/2016 3:58am 06/16/2016 4:53am Eosinophils (%) (Auto) 5.9 % H 0-4 06/16/2016 3:58am 06/16/2016 4:53am Basophils (%) (Auto) 0.3 % 0-2 06/16/2016 3:58am 06/16/2016 4:53am Immature Granulocyte % (Auto) 0.4 % 0.0-0.5 06/16/2016 3:58am 2015 4:53am Absolute Neutrophils (auto) 4.8 T/MM3 1.8-7.7 06/16/2016 3:58am 2015 4:53am Absolute Lymphocytes (auto) 1.6 T/MM3 1-4.8 06/16/2016 3:58am 2015 4:53am Absolute Monocytes (auto) 0.6 T/MM3 0-0.8 06/16/2016 3:58am 06/16/2016 4:53am Absolute Eosinophils (auto) 0.4 T/MM3 0-0.5 06/16/2016 3:58am 2015 4:53am Absolute Basophils (auto) 0.0 T/MM3 0-0.2 06/16/2016 3:58am 06/16/2016 4:53am Absolute Immature Granulocyte (auto 0.03 T/MM3 0.00-0.03 06/16/2016 3: 58am 06/16/2016 4:53am Neutrophils % (Manual) 82.0 % H 33-66 06/12/2016 4:27am 06/12/2016 6: 14am Band Neutrophils % 2.0 % 0-6 06/12/2016 4:27am 06/12/2016 6:14am Lymphocytes % (Manual) 12.0 % L 23-45 06/12/2016 4:27am 06/12/2016 6: 14am Monocytes % (Manual) 4.0 % 0-9.0 06/12/2016 4:27am 06/12/2016 6:14am Band Neutrophils # 0.3 T/MM3 06/12/2016 4:27am 06/12/2016 6:14am Absolute Neutrophils (Manual) 13.4 T/MM3 H 1.8-7.7 06/12/2016 4:27am 6:14am Lymphocytes # (Manual) 2.0 T/MM3 1-4.8 06/12/2016 4:27am 06/12/2016 6: 14am Monocytes # (Manual) 0.7 T/MM3 0-0.8 06/12/2016 4:27am 06/12/2016 6: 14am Red Cell Morphology Comment NORMAL 06/12/2016 4:27am 06/12/2016 6: 14am Prothromb Time International Ratio 1.13 H 0.76-1.04 06/11/2016 6:09pm 06/11/2016 6:22pm THERAPUTIC RANGE=2.00-3.00 FOR ANTI-THROMBOSIS THERAPUTIC RANGE=2.50-3.50 FOR IMPLANTED VALVE Icterus Index < 2 0-7 06/16/2016 3:58am 06/16/2016 4:57am Chemistry Specimen Hemolysis < 15 0-25 06/16/2016 3:58am 06/16/2016 4 :57am 0-25: Specimen Exhibited No Hemolysis. Turbidity < 20 0-20 06/16/2016 3:58am 06/16/2016 4:57am Sodium Level 141 MEQ/L 134-144 06/16/2016 3:58am 06/16/2016 4:57am Potassium Level 4.4 MEQ/L 3.6-5 06/16/2016 3:58am 06/16/2016 4:57am Chloride Level 105 MEQ/L 98-107 06/16/2016 3:58am 06/16/2016 4:57am Carbon Dioxide Level 26 MEQ/L 22-30 06/16/2016 3:58am 06/16/2016 4: 57am Anion Gap 10 MEQ/L 5-15 06/16/2016 3:58am 06/16/2016 4:57am Blood Urea Nitrogen 17.0 MG/DL 7-17 06/16/2016 3:58am 06/16/2016 4: 57am Creatinine 0.8 MG/DL 0.7-1.2 06/16/2016 3:58am 06/16/2016 4:57am BUN/Creatinine Ratio 21 RATIO 6-26 06/16/2016 3:58am 06/16/2016 4:57am Glomerular Filtration Rate Calc 71 06/16/2016 3:58am 06/16/2016 4: 57am Glucose Level 93 MG/DL 65-110 06/16/2016 3:58am 06/16/2016 4:57am Calculated Osmolality 273 MOSM/KG 261-280 06/16/2016 3:58am 06/16/2016 4:57am Calcium Level 8.5 MG/DL 8.4-10.2 06/16/2016 3:58am 06/16/2016 4:57am Total Bilirubin 0.60 MG/DL 0.20-1.30 06/11/2016 12:34pm 06/11/2016 12: 51pm Alkaline Phosphatase 92 U/L 38-126 06/11/2016 12:34pm 06/11/2016 12: 51pm Total Protein 6.7 G/DL 6.3-8.2 06/11/2016 12:34pm 06/11/2016 12:51pm Albumin 3.6 G/DL 3.5-5.0 06/11/2016 12:34pm 06/11/2016 12:51pm Globulin 3.1 G/DL 2.4-3.6 06/11/2016 12:34pm 06/11/2016 12:51pm Albumin/Globulin Ratio 1.2 RATIO 1.1-2.2 06/11/2016 12:34pm 06/11/2016 12:51pm Aspartate Amino Transf (AST/SGOT) 16 U/L 14-36 06/11/2016 12:34pm 06/11 12:51pm Alanine Aminotransferase (ALT/SGPT) 28 U/L 9-52 06/11/2016 12:34pm 12:51pm Total Creatine Kinase 29 U/L L 30-135 06/12/2016 4:21am 06/12/2016 9: 34am Magnesium Level 2.0 MG/DL 1.6-2.3 06/15/2016 4:23am 06/15/2016 5:06am Plasma Lactate 1.2 MMOL/L 0.6-2.2 06/11/2016 6:09pm 06/11/2016 6:27pm Procalcitonin 2.07 NG/ML *H 06/14/2016 5:22am 06/14/2016 7:35am PCT </ =0.5 ng/mL - sepsis not likely; PCT >0.5 and </=2 ng/mL - sepsis possible; PCT >2 ng/mL - sepsis likely; PCT >/=10 ng/mL - systemic inflammatory response - sepsis or septic shock highly indicated. Vancomycin Level Trough 15.10 UG/ML 1506/13/2016 10:04am 2015 10:45am Microbiology Results Procedure Source Organism/Result Collection Date/Time Result Date/Time Result Status Sputum Culture Sputum, Expectorated Sputum FUNGUS 05/26/2016 11:21pm 2015 6:48am Final S. AUREUS, METH-RESISTANT 05/26/2016 11:21pm 05/31/2016 6:48am Final NORMAL RESPIRATORY BRYCE 05/26/2016 11:21pm 05/31/2016 6:48am Final Blood Culture Cath/Port/Line/Picc NO GROWTH AFTER 72 HOURS 06/13/2016 5: 20am 06/16/2016 5:51am Preliminary Blood Culture Peripheral/Iv Start NO GROWTH AFTER 72 HOURS 06/13/2016 5: 20am 06/16/2016 5:51am Preliminary Name: GILA CARPIO Unit #: [id number] : 1945 Sex: F Admit Date: 06/11/16 Loc / Svc: MED Discharge Date: DIAGNOSTIC IMAGING REPORT Report #: [id number] [facility] Yusuf LOCATION OF DICTATION: [place] EXAM: CHEST, PA LATERAL HISTORY: ITS.REASON: PNA COMPARISON: Compared to June 10, 2016, five days earlier. FINDINGS: The heart size is normal. The mediastinal configuration is unremarkable. There are persistent alveolar opacities within the right lower lobe not significantly changed from the prior study. There is a right parapneumonic effusion suggested. The left lung remains clear. The osseous structures are within normal limits. IMPRESSION: Persistent alveolar opacities in the right lower lobe not significantly changed from the previous study. There is a small right parapneumonic effusion suggested. . Procedures Procedure Status Date Provider(s) CHEST X-RAY 2VW FRONTAL&LATL Completed 06/10/16 X-RAY EXAM RIBS UNI 2 VIEWS Completed 06/10/16 METABOLIC PANEL TOTAL CA Completed 06/10/16 ASSAY OF LACTIC ACID Completed 06/10/16 ASSAY OF NATRIURETIC PEPTIDE Completed 06/10/16 ASSAY OF TROPONIN QUANT Completed 06/10/16 COMPLETE CBC W/AUTO DIFF WBC Completed 06/10/16 FIBRIN DEGRADATION QUANT Completed 06/10/16 BLOOD CULTURE FOR BACTERIA Completed 06/10/16 BLOOD CULTURE FOR BACTERIA Completed 06/10/16 DNA/RNA AMPLIFIED PROBE Completed 06/10/16 DNA/RNA AMPLIFIED PROBE Completed 06/10/16 DNA/RNA AMPLIFIED PROBE Completed 06/10/16 DNA/RNA AMPLIFIED PROBE Completed 06/10/16 DNA/RNA AMPLIFIED PROBE Completed 06/10/16 DNA/RNA AMPLIFIED PROBE Completed 06/10/16 MICROBE SUSCEPTIBLE CHRIS Completed 06/10/16 SMEAR GRAM STAIN Completed 06/10/16 AIRWAY INHALATION TREATMENT Completed 06/10/16 THER/PROPH/DIAG IV INF INIT Completed 06/10/16 THER/PROPH/DIAG IV INF ADDON Completed 06/10/16 TX/PRO/DX INJ NEW DRUG ADDON Completed 06/10/16 TX/PRO/DX INJ NEW DRUG ADDON Completed 06/10/16 TX/PRO/DX INJ NEW DRUG ADDON Completed 06/10/16 EMERGENCY DEPT VISIT Completed 06/10/16 713193"INJECTION, KETOROLAC TROMETHAMINE, PER 15 MG" Completed 06/10/16576487"INJECTION, LEVOFLOXACIN, 250 MG" Completed 06/10/16 [id number]"INJECTION, LORAZEPAM, 2 MG" Completed 06/10/16 [id number]"INJECTION, METHYLPREDNISOLONE SODIUM SUCCINATE, UP TO Completed [id number]"INFUSION, NORMAL SALINE SOLUTION , 1000 CC" Completed 06/10/16 [id number]% DEXTROSE/WATER (500 ML=1 UNIT) Completed 06/10/16 Insertion of vascular catheter Active 06/11/16 DIANE CERVANTES MD, FACS, CWS Encounters Encounter Location Arrival/Admit Date Discharge/Depart Date Attending Provider Discharged Inpatient [facility] 06/11/16 1:25pm 06/16/16 12:08pm SAQIB AGUILAR MD Departed Emergency Room [facility] 06/10/16 3:14pm 06/10/16 7: 05pm OCTOBERSILVIO DO Discharged Inpatient [facility] 05/28/16 9:30am 05/28/16 3:05pm SAQIB AGUILAR MD
--- OUTSIDE RECORDS SUMMARY | 2016-10-04 18:10 | XMS REPORT | Continuity of Care Document ---
Author Author [facility] Organization [facility] Address Unknown Phone Unavailable Allergies Medications Problems Procedures Results Encounters ACCT No. Visit Date/Time Discharge Status Pt. Type Provider Facility Loc./Unit Complaint [id number] 08/31/2013 13:33:00 08/31/2013 23 :59:59 CLS Outpatient
--- OUTSIDE RECORDS SUMMARY | 2016-10-04 18:11 | XMS REPORT | Continuity of Care Document ---
Author Author [facility] Organization [facility] Address Unknown Phone Unavailable Support Name Relationship Address Phone SOFÍA VENTURA MD Caregiver [address] [facility] [address] [place] [address] Unavailable ROGER BOBBY DO Caregiver Unknown Unavailable DHIRAJ CARPIO Next Of Kin [address] [place] [address] Insurance Providers Guarantor Gila Carpio Address [address] [place] [address] Email [email or web address] Payer [employer] Policy Number [id number] Subscriber's Name Gila Carpio Relationship 18 Self Group Number [id number] Group Name PLAN Payer Medicare Policy Number [id number] Subscriber's Name Gila Carpio Relationship 18 Self Problems Active Problems Medical Problem Onset Date Status Abnormal chest CT Unknown Anemia Unknown Acute Asthma Unknown Bacteremia due to Staphylococcus aureus Unknown Acute [...] Acute Diarrhea Unknown Acute Diarrhea Unknown Acute Echocardiogram abnormal Unknown GERD (gastroesophageal reflux disease) Unknown Chronic HTN (hypertension) Unknown Chronic Headache Unknown Acute History of alcohol abuse Unknown Hypercholesteremia Unknown Chronic Hyperosmolality and hypernatremia Unknown Resolved Hyperosmolality and hypernatremia Unknown Acute Hypokalemia Unknown Acute Hypokalemia Unknown Resolved Hypoxia Unknown Acute Leukocytosis Unknown Resolved Leukocytosis Unknown Resolved Metabolic acidosis Unknown Acute Metabolic acidosis Unknown Resolved Nausea Unknown Acute Nausea Unknown Acute Nausea & vomiting Unknown Acute CADY (obstructive sleep apnea) Unknown Chronic Obesity (BMI 30-39.9) Unknown Chronic Personal history of tobacco use Unknown Pleural pain Unknown Acute Pneumonia Unknown Resolved [...] Hours for Cough/Congestion 30 Tablet 06/16/16 Hydrocodone/Acetaminophen ([place] 5-325 Tablet) 5-325 Tablet 1-2 Tab Oral [...] Problem Response Recorded Date/Time Onset Date Status Hx Substance Use No 06/10/2016 3:27pm Not Applicable Not Applicable Hx Alcohol Use N QUIT IN 198206/10/2016 3:27pm Not Applicable Not Applicable Has the pt used tobacco in the last 12 months No 06/28/2016 8:07am Not Applicable Not Applicable Quit (MM/YYYY) 11 years ago 08/27/2015 11:59am Not Applicable Not Applicable Tobacco Usage none 08/27/2015 11:31am Not Applicable Not Applicable Hospital Discharge Instructions Current inpatient/outpatient. Discharge instructions are currently unavailable. Plan of Care Current inpatient/outpatient. The plan of care is currently unavailable Functional Status No functional status results. Allergies, Adverse Reactions, Alerts Allergen Type Severity Reaction Status Last Updated amoxicillin trihydrate Allergy Unknown Active 06/11/16 Sulfa (Sulfonamide Antibiotics) Allergy Unknown Active 06/11/16 potassium clavulanate Allergy Unknown Active 06/11/16 Immunizations Query Response on File Recorded Date/Time Hx Influenza Vaccination Y APR 2016 06/28/16 8:07am Hx Pneumococcal Vaccination Y March 2014/REPORTS HAVING HAD THE SECOND ONE WELL 06/28/16 8:07am Hx Tetanus, Diptheria, Pertussis No 11/27/14 7:42pm Hx Influenza Vaccination Y APR 2016 06/28/16 8:07am Hx Tetanus Diptheria No 11/27/14 7:42pm Hx Tetanus, Diptheria, Pertussis No 11/27/14 7:42pm Hx Tetanus Toxoid Vaccination Y unknown date 07/05/14 11:39am Influenza Vaccine Hx APR 2016 06/11/16 11:26am Vital Signs Acute Vital Signs Vital Response Date/Time Temperature (Fahrenheit) 98.4 deg F (96.8 - 99.1) 07/10/2016 9:29am Temperature (Calculated Celsius) 36.32175 degrees C (36.0 - 37.3) 07/10/2016 9:29am Pulse Rate (adult) 71 bpm (60 - 100) 07/10/2016 9:29am Respiratory Rate 20 breaths/min (10 - 20) 07/10/2016 9:29am O2 Sat by Pulse Oximetry 100 % (90 - 100) 07/10/2016 9:29am Oxygen Delivery Method Nasal Cannula 06/16/2016 12:04pm Oxygen Delivery Method Room Air 07/10/2016 9:29am Oxygen Flow Rate 2.00 L/min 06/28/2016 8:06am Blood Pressure 176/72 mm Hg 07/10/2016 9:29am Blood Pressure Source Automatic Cuff 07/10/2016 9:29am Height (Feet) 5 feet 06/28/2016 8:07am Height (Inches) 4.00 inches 06/28/2016 8:07am Weight (Kilograms) 101.300 kg 06/28/2016 8:07am Body Mass Index (BMI) 38.3 06/28/2016 8:07am Results Laboratory Results Test Name Result Units [...] CLEAR 05/26/2016 1:28pm 05/26/2016 1:36pm Urine Specific [place] 1.025 1.015-1.025 05/26/2016 1:28pm 2015 1:36pm Urine [...] by subsequent Troponin value, multiplied by 100) KZ-Max-R-Type Natriuretic Peptide 574 PG/ML H 0-175 06/10/2016 4:31pm 5:07pm Rule in cut points: <50 years old=450; 50-75 years old=900; >75 years old=1800; When utilizing ProBNP rule-in cut points, adjustment for impaired renal function is typically not required. Neutrophils (%) (Auto) 64.2 % 33-66 06/16/2016 [...] T/MM3 0.00-0.03 06/16/2016 3: 58am 06/16/2016 4:53am Prothromb Time International Ratio 1.13 H 0.76-1.04 06/11/2016 6:09pm 06/11/2016 6:22pm THERAPUTIC RANGE=2.00-3.00 FOR ANTI-THROMBOSIS THERAPUTIC RANGE=2.50-3.50 FOR IMPLANTED VALVE Total Bilirubin 0.60 MG/DL 0.20-1.30 06/11/2016 12:34pm [...] - sepsis or septic shock highly indicated. Random Vancomycin Level 15.01 UG/ML 0-40 06/24/2016 8:05am 06/24/2016 8 :31am White Blood Count 5.1 T/MM3 4.5-11.0 07/06/2016 7:48am 07/06/2016 8: 02am Red Blood Count 3.59 M/MM3 L 4.00-5.20 07/06/2016 7:48am 07/06/2016 8: 02am Hemoglobin 11.3 GM/DL L 12-16 07/06/2016 7:48am 07/06/2016 8:02am Hematocrit 36.1 % 36-46 07/06/2016 7:48am 07/06/2016 8:02am Mean Corpuscular Volume 100.6 UM3 H 80-100 07/06/2016 7:48am 07/06/2016 8:02am Mean Corpuscular Hemoglobin 31.5 UUG 26-34 07/06/2016 7:48am 2016 8:02am Mean Corpuscular Hemoglobin Concent 31.3 GM/DL 31-37 07/06/2016 7:48am 07/06/2016 8:02am RDW Standard Deviation 52.0 FL H 36.9-50.2 07/06/2016 7:48am 07/06/2016 8:02am Platelet Count 260 T/MM3 130-400 07/06/2016 7:48am 07/06/2016 8:02am Mean Platelet Volume 9.0 UM3 L 9.4-12.4 07/06/2016 7:48am 07/06/2016 8: 02am Neutrophils % (Manual) 58.0 % 33-66 07/06/2016 7:48am 07/06/2016 8: 11am Band Neutrophils % 2.0 % 0-6 07/06/2016 7:48am 07/06/2016 8:11am Lymphocytes % (Manual) 39.0 % 23-45 07/06/2016 7:48am 07/06/2016 8: 11am Monocytes % (Manual) 7.0 % 0-9.0 06/30/2016 9:20am 06/30/2016 10:04am Eosinophils % (Manual) 2.0 % 0-4 06/30/2016 9:20am 06/30/2016 10:04am Basophils % (Manual) 1.0 % 0-2 07/06/2016 7:48am 07/06/2016 8:11am Metamyelocytes % 1.0 % H 0-0 06/30/2016 9:20am 06/30/2016 10:04am Band Neutrophils # 0.1 T/MM3 07/06/2016 7:48am 07/06/2016 8:11am Absolute Neutrophils (Manual) 3.0 T/MM3 1.8-7.7 07/06/2016 7:48am 07/06 8:11am Lymphocytes # (Manual) 2.0 T/MM3 1-4.8 07/06/2016 7:48am 07/06/2016 8: 11am Monocytes # (Manual) 0.5 T/MM3 0-0.8 06/30/2016 9:20am 06/30/2016 10: 04am Eosinophils # (Manual) 0.1 T/MM3 0-0.5 06/30/2016 9:20am 06/30/2016 10: 04am Basophils # (Manual) 0.1 T/MM3 0-0.2 07/06/2016 7:48am 07/06/2016 8: 11am Metamyelocytes # 0.1 T/MM3 06/30/2016 9:20am 06/30/2016 10:04am Red Cell Morphology Comment NORMAL 07/06/2016 7:48am 07/06/2016 8: 11am Icterus Index < 2 0-7 07/06/2016 7:48am 07/06/2016 8:15am Chemistry Specimen Hemolysis < 15 0-25 07/06/2016 7:48am 07/06/2016 8 :15am 0-25: Specimen Exhibited No Hemolysis. Turbidity < 20 0-20 07/06/2016 7:48am 07/06/2016 8:15am Sodium Level 142 MEQ/L 134-144 07/06/2016 7:48am 07/06/2016 8:15am Potassium Level 4.1 MEQ/L 3.6-5 07/06/2016 7:48am 07/06/2016 8:15am Chloride Level 113 MEQ/L H 98-107 07/06/2016 7:48am 07/06/2016 8:15am Carbon Dioxide Level 18 MEQ/L L 22-30 07/06/2016 7:48am 07/06/2016 8: 15am Anion Gap 11 MEQ/L 5-15 07/06/2016 7:48am 07/06/2016 8:15am Blood Urea Nitrogen 21.0 MG/DL H 7-17 07/06/2016 7:48am 07/06/2016 8: 15am Creatinine 0.8 MG/DL 0.7-1.2 07/06/2016 7:48am 07/06/2016 8:15am BUN/Creatinine Ratio 26 RATIO 6-26 07/06/2016 7:48am 07/06/2016 8:15am Glomerular Filtration Rate Calc 71 07/06/2016 7:48am 07/06/2016 8: 15am Glucose Level 92 MG/DL 65-110 07/06/2016 7:48am 07/06/2016 8:15am Calculated Osmolality 276 MOSM/KG 261-280 07/06/2016 7:48am 07/06/2016 8:15am Calcium Level 9.7 MG/DL 8.4-10.2 07/06/2016 7:48am 07/06/2016 8:15am C-Reactive Protein < 5.0 MG/L 0-9 07/06/2016 7:48am 07/06/2016 8:15am Vancomycin Level Trough 8.66 UG/ML L 15-20 07/06/2016 7:48am 07/06/2016 8:15am Microbiology Results Procedure Source Organism/Result Collection Date/Time Result Date/Time Result Status Sputum Culture Sputum, Expectorated Sputum FUNGUS 05/26/2016 11:21pm 2015 6:48am Final S. AUREUS, METH-RESISTANT 05/26/2016 11:21pm 05/31/2016 6:48am Final NORMAL RESPIRATORY BRYCE 05/26/2016 11:21pm 05/31/2016 6:48am Final Blood Culture Cath/Port/Line/Picc NO GROWTH AFTER 5 DAYS 06/13/2016 5:20am 06/18/2016 5:51am Final Blood Culture Peripheral/Iv Start NO GROWTH AFTER 5 DAYS 06/13/2016 5:20am 06/18/2016 5:51am Final Name: GILA CARPIO Unit #: [id number] : 1945 Sex: F Admit Date: Loc / Svc: MARELY Discharge Date: DIAGNOSTIC IMAGING REPORT Report #: [id number] [facility] LOUISE Yusuf INDICATION: ITS.REASON: A41.02 Sepsis due to Methicillin resistant Staphyl, B97.19, J18.9 PROCEDURE: CHEST 2-VIEWS UPRIGHT (PA \\T\\ LAT) Encounter: Initial COMPARISON: June 15, 2016 FINDINGS: Right middle lobe airspace consolidation has improved with a mild amount of opacity remaining. Significant emphysema is again noted. No new areas of airspace disease. Prior small pleural effusions have essentially resolved. New left PICC line in place with the tip in the right atrium. Heart size and mediastinal contours are stable. Pulmonary vascularity is normal. Impression: 1. Improved right middle lobe consolidation and nearly resolved pleural effusions. 2. New left PICC line tip in the right atrium. This could be retracted by approximately 2 cm if cavoatrial positioning is desired. . Procedures Procedure Status Date Provider(s) Chest x-ray 2vw frontal&latl Completed 06/10/16 X-ray exam ribs uni 2 views Completed 06/10/16 Metabolic panel total ca Completed 06/10/16 Assay of lactic acid Completed 06/10/16 Assay of natriuretic peptide Completed 06/10/16 Assay of troponin quant Completed 06/10/16 Complete cbc w/auto diff wbc Completed 06/10/16 Fibrin degradation quant Completed 06/10/16 Blood culture for bacteria Completed 06/10/16 Blood culture for bacteria Completed 06/10/16 Dna/rna amplified probe Completed 06/10/16 Dna/rna amplified probe Completed 06/10/16 Dna/rna amplified probe Completed 06/10/16 Dna/rna amplified probe Completed 06/10/16 Dna/rna amplified probe Completed 06/10/16 Dna/rna amplified probe Completed 06/10/16 Microbe susceptible kady Completed 06/10/16 Smear gram stain Completed 06/10/16 Airway inhalation treatment Completed 06/10/16 Ther/proph/diag iv inf init Completed 06/10/16 Ther/proph/diag iv inf addon Completed 06/10/16 Tx/pro/dx inj new drug addon Completed 06/10/16 Tx/pro/dx inj new drug addon Completed 06/10/16 Tx/pro/dx inj new drug addon Completed 06/10/16 Emergency dept visit Completed 06/10/16 083920"INJECTION, KETOROLAC TROMETHAMINE, PER 15 MG" Completed 06/10/16 980960"INJECTION, LEVOFLOXACIN, 250 MG" Completed 06/10/16876706"INJECTION, LORAZEPAM, 2 MG" Completed 06/10/16122223"INJECTION, METHYLPREDNISOLONE SODIUM SUCCINATE, UP TO Completed 003"INFUSION, NORMAL SALINE SOLUTION , 1000 CC" Completed 06/10/16 7042418% DEXTROSE/WATER (500 ML=1 UNIT) Completed 06/10/16 Insert picc cath Completed 06/11/16 LUC LANGSTON RPA INSERTION OF INFUSION DEV INTO L SUBCLAV VEIN, PERC APPROACH Completed LUC LANGSTON RPA Encounters Encounter Location Arrival/Admit Date Discharge/Depart Date Attending Provider Discharged Recurring [facility] 07/10/16 8:00am 07/10/16 10:37am SOFÍA VENTURA MD Registered Clinic [facility] 07/08/16 9:01am SOFÍA VENTURA MD Discharged Recurring [facility] 06/26/16 8:00am 06/27/16 11:32pm SOFÍA VENTURA MD Discharged Inpatient [facility] 06/11/16 1:25pm 06/16/16 12:08pm SAQIB AGUILAR MD Departed Emergency Room [facility] 06/10/16 3:14pm 06/10/16 7: 05pm OCTOBERSILVIO DO Discharged Inpatient [facility] 05/28/16 9:30am 05/28/16 3:05pm SAQIB AGUILAR MD
--- OUTSIDE RECORDS SUMMARY | 2016-10-04 18:11 | XMS REPORT | Continuity of Care Document ---
Author Author [facility] Organization [facility] Address Unknown Phone Unavailable Support Name Relationship Address Phone SOFÍA VENTURA MD Caregiver [address] [facility] [address] [place] [address] Unavailable ROGER BOBBY DO Caregiver Unknown Unavailable DHIRAJ CARPIO Next Of Kin [address] [place] [address] Insurance Providers Guarantor Gila Carpio Address [address] [place] [address] Email [email or web address] [facility] Policy Number [id number] Subscriber's Name Gila Carpio Relationship 18 Self Group Number [id number] Group Name PLAN Payer Medicare Policy Number [id number] Subscriber's Name Gila Carpio Relationship 18 Self [...] Hours for Cough/Congestion 30 Tablet 06/16/16 Hydrocodone/Acetaminophen ([place] 5-325 Tablet) 5-325 Tablet 1-2 Tab Oral [...] tobacco in the last 12 months No 06/16/2016 8:20pm Not Applicable Not Applicable Quit (MM/YYYY) 11 years ago 08/27/2015 11:59am Not Applicable Not Applicable Tobacco Usage none 08/27/2015 11:31am Not Applicable Not Applicable Query Response Start Date Stop Date Smoking Status Unknown if ever smoked Hospital Discharge Instructions No hospital discharge instructions. Plan of Care Prescriptions See Medication Section Functional Status No functional status results. Allergies, Adverse Reactions, Alerts Allergen Type Severity Reaction Status Last Updated amoxicillin trihydrate Allergy Unknown Active 06/11/16 Sulfa (Sulfonamide Antibiotics) Allergy Unknown Active 06/11/16 potassium clavulanate Allergy Unknown Active 06/11/16 Immunizations Query Response on File Recorded Date/Time Hx Influenza Vaccination Y APR 2016 06/16/16 8:20pm Hx Pneumococcal Vaccination Y March 2014/REPORTS HAVING HAD THE SECOND ONE WELL 06/16/16 8:20pm Hx Tetanus, Diptheria, Pertussis No 11/27/14 7:42pm Hx Influenza Vaccination Y APR 2016 06/16/16 8:20pm Hx Tetanus Diptheria No 11/27/14 7:42pm Hx Tetanus, Diptheria, Pertussis No 11/27/14 7:42pm Hx Tetanus Toxoid Vaccination Y unknown date 07/05/14 11:39am Influenza Vaccine Hx APR 2016 06/11/16 11:26am Vital Signs Acute Vital Signs Vital Response Date/Time Temperature (Fahrenheit) 98.5 deg F (96.8 - 99.1) 06/26/2016 8:38am Temperature (Calculated Celsius) 36.69776 degrees C (36.0 - 37.3) 06/26/2016 8:38am Pulse Rate (adult) 72 bpm (60 - 100) 06/26/2016 8:38am Respiratory Rate 18 breaths/min (10 - 20) 06/26/2016 8:38am O2 Sat by Pulse Oximetry 95 % (90 - 100) 06/26/2016 8:38am Oxygen Delivery Method Nasal Cannula 06/16/2016 12:04pm Oxygen Delivery Method Room Air 06/26/2016 8:38am Oxygen Flow Rate 2.00 L/min 06/24/2016 9:41am Blood Pressure 156/80 mm Hg 06/26/2016 8:38am Blood Pressure Source Automatic Cuff 06/26/2016 8:38am Blood Pressure 156/80 mm Hg 06/26/2016 8:38am Blood Pressure Source Automatic Cuff 06/26/2016 8:38am Height (Feet) 5 feet 06/16/2016 8:20pm Height (Inches) 4.00 inches 06/16/2016 8:20pm Weight (Kilograms) 97.400 kg 06/16/2016 8:20pm Body Mass Index (BMI) 36.9 06/16/2016 8:20pm Results Laboratory Results Test Name Result Units [...] CLEAR 05/26/2016 1:28pm 05/26/2016 1:36pm Urine Specific [place] 1.025 1.015-1.025 05/26/2016 1:28pm 2015 1:36pm Urine [...] by subsequent Troponin value, multiplied by 100) BF-Eej-P-Type Natriuretic Peptide 574 PG/ML H 0-175 06/10/2016 [...] T/MM3 0.00-0.03 06/16/2016 3: 58am 06/16/2016 4:53am Band Neutrophils % 2.0 % 0-6 06/12/2016 4:27am 06/12/2016 6:14am Band Neutrophils # 0.3 T/MM3 06/12/2016 4:27am 06/12/2016 6:14am Prothromb Time International Ratio 1.13 H 0.76-1.04 [...] - sepsis or septic shock highly indicated. White Blood Count 5.9 T/MM3 4.5-11.0 06/22/2016 8:16am 06/22/2016 8: 31am Red Blood Count 3.25 M/MM3 L 4.00-5.20 06/22/2016 8:16am 06/22/2016 8: 31am Hemoglobin 10.1 GM/DL L 12-16 06/22/2016 8:16am 06/22/2016 8:31am Hematocrit 33.1 % L 36-46 06/22/2016 8:16am 06/22/2016 8:31am Mean Corpuscular Volume 101.8 UM3 H 80-100 06/22/2016 8:16am 06/22/2016 8:31am Mean Corpuscular Hemoglobin 31.1 UUG 26-34 06/22/2016 8:16am 2015 8:31am Mean Corpuscular Hemoglobin Concent 30.5 GM/DL L 31-37 06/22/2016 8:16am 06/22/2016 8:31am RDW Standard Deviation 46.7 FL 36.9-50.2 06/22/2016 8:16am 06/22/2016 8 :31am Platelet Count 383 T/MM3 130-400 06/22/2016 8:16am 06/22/2016 8:31am Mean Platelet Volume 8.1 UM3 L 9.4-12.4 06/22/2016 8:16am 06/22/2016 8: 31am Neutrophils % (Manual) 62.0 % 33-66 06/22/2016 8:16am 06/22/2016 8: 53am Lymphocytes % (Manual) 23.0 % 23-45 06/22/2016 8:16am 06/22/2016 8: 53am Monocytes % (Manual) 9.0 % 0-9.0 06/22/2016 8:16am 06/22/2016 8:53am Eosinophils % (Manual) 6.0 % H 0-4 06/22/2016 8:16am 06/22/2016 8:53am Absolute Neutrophils (Manual) 3.7 T/MM3 1.8-7.7 06/22/2016 8:16am 06/22 8:53am Lymphocytes # (Manual) 1.4 T/MM3 1-4.8 06/22/2016 8:16am 06/22/2016 8: 53am Monocytes # (Manual) 0.5 T/MM3 0-0.8 06/22/2016 8:16am 06/22/2016 8: 53am Eosinophils # (Manual) 0.4 T/MM3 0-0.5 06/22/2016 8:16am 06/22/2016 8: 53am Red Cell Morphology Comment NORMAL 06/22/2016 8:16am 06/22/2016 8: 53am Icterus Index < 2 0-7 06/24/2016 8:05am 06/24/2016 8:26am Chemistry Specimen Hemolysis < 15 0-25 06/24/2016 8:05am 06/24/2016 8 :26am 0-25: Specimen Exhibited No Hemolysis. Turbidity < 20 0-20 06/24/2016 8:05am 06/24/2016 8:26am Sodium Level 142 MEQ/L 134-144 06/24/2016 8:05am 06/24/2016 8:26am Potassium Level 4.1 MEQ/L 3.6-5 06/24/2016 8:05am 06/24/2016 8:26am Chloride Level 113 MEQ/L H 98-107 06/24/2016 8:05am 06/24/2016 8:26am Carbon Dioxide Level 18 MEQ/L L 22-30 06/24/2016 8:05am 06/24/2016 8: 26am Anion Gap 11 MEQ/L 5-15 06/24/2016 8:05am 06/24/2016 8:26am Blood Urea Nitrogen 25.0 MG/DL H 7-17 06/24/2016 8:05am 06/24/2016 8: 26am Creatinine 1.1 MG/DL 0.7-1.2 06/24/2016 8:05am 06/24/2016 8:26am BUN/Creatinine Ratio 23 RATIO 6-26 06/24/2016 8:05am 06/24/2016 8:26am Glomerular Filtration Rate Calc 49 06/24/2016 8:05am 06/24/2016 8: 26am Glucose Level 91 MG/DL 65-110 06/24/2016 8:05am 06/24/2016 8:26am Calculated Osmolality 277 MOSM/KG 261-280 06/24/2016 8:05am 06/24/2016 8:26am Calcium Level 9.5 MG/DL 8.4-10.2 06/24/2016 8:05am 06/24/2016 8:26am Random Vancomycin Level 15.01 UG/ML 0-40 06/24/2016 8:05am 06/24/2016 8 :31am Vancomycin Level Trough 30.59 UG/ML H 15-20 06/22/2016 8:16am 2015 8:52am Microbiology Results Procedure Source Organism/Result Collection Date/Time [...] 5 DAYS 06/13/2016 5:20am 06/18/2016 5:51am Final Procedures Procedure Status Date Provider(s) CHEST X-RAY [...] Completed 06/10/16 EMERGENCY DEPT VISIT Completed 06/10/16 948655"INJECTION, KETOROLAC TROMETHAMINE, PER 15 MG" Completed 06/10/16 270644"INJECTION, LEVOFLOXACIN, 250 MG" Completed 06/10/16 056565"INJECTION, LORAZEPAM, 2 MG" Completed 06/10/16 872982"INJECTION, METHYLPREDNISOLONE SODIUM SUCCINATE, UP TO Completed 164816"INFUSION, NORMAL SALINE SOLUTION , 1000 CC" Completed 06/10/16 4429330% DEXTROSE/WATER (500 ML=1 UNIT) Completed 06/10/16 Insertion of vascular catheter Active 06/11/16 DIANE CERVANTES MD, FACS, CWS Encounters Encounter Location Arrival/Admit Date Discharge/Depart Date Attending Provider Discharged Recurring [facility] 06/26/16 8:00am 06/27/16 11:32pm SOFÍA VENTURA MD Discharged Inpatient [facility] 06/11/16 1:25pm 06/16/16 12:08pm SAQIB AGUILAR MD Departed Emergency Room [facility] 06/10/16 3:14pm 06/10/16 7: 05pm SILVIO COLUNGA DO Discharged Inpatient [facility] 05/28/16 9:30am 05/28/16 3:05pm SAQIB AGUILAR MD
--- OUTSIDE RECORDS SUMMARY | 2016-10-04 18:12 | XMS REPORT | Referral Summary ---
Author Author [facility], [facility] Organization [facility] Address Unknown Phone Unavailable Care Team Providers Care Pattern Maker Programer Name Role Phone Jeimy Black Primary Care Physician [phone] Encounter VC Date(s): 07/31/16 - 07/31/16 [facility] [address] [place] [id number] Discharge Diagnosis: Medication monitoring encounter Discharge Diagnosis: Sepsis due to methicillin resistant Staphylococcus aureus ( MRSA) Discharge Disposition: 01-Home or Self Care Attending Physician: Corine Black DO Admitting Physician: Corine Black DO Vital Signs Most recent to 1 oldest [Reference Range]: Temperature Tympanic 35.6 degC [36.6-38.1 degC] *LOW* (07/31/16 10:25 AM) Peripheral Pulse 59 bpm Rate [60-100 bpm] *LOW* (07/31/16 10:25 AM) Respiratory Rate 18 br/min [14-20 br/min] (07/31/16 10:25 AM) Blood Pressure 158/80 mmHg [90-140/60-90 mmHg] *HI* (07/31/16 10:25 AM) SpO2 96 % (07/31/16 10:25 AM) Problem List Condition Effective Dates Status Health [...] AFTER USE, # 60 unknown unit, eRx: [facility] #[id number] Start Date: 07/23/16 Status: Ordered aspirin 81 mg, Oral, Daily, 1 tab, 0 Refill(s) Start Date: 05/10/14 Status: Ordered atorvastatin 40 mg oral tablet See Instructions, TAKE ONE TABLET BY MOUTH EVERY NIGHT AT BEDTIME, # 90 tabs, 1 Refill(s), eRx: [facility] #[id number], TAKE ONE TABLET BY MOUTH EVERY NIGHT AT BEDTIME Start Date: 01/20/16 Status: Ordered Coricidin 325 mg-2 mg oral tablet 2 tabs, Oral, qAM, as needed for allergy symptoms, 0 Refill(s) Start Date: 02/12/14 Status: Ordered Cozaar 100 mg oral tablet 100 mg 1 tabs, Oral, Daily, Dose decreased to 50mg at [facility] on 06/16/16, # 90 tabs, 3 Refill(s), Pharmacy: [facility] #[id number] Start Date: 07/01/15 Status: Ordered CPAP Machine (DME) DME Item at bedtime ([facility]), See Instructions, # 1 Each, 0 Refill(s), Supply Start Date: 06/04/15 Status: Ordered Home Oxygen (DME) DME Item 2L/min, See Instructions, # 1 Each, 0 Refill(s), Supply Start Date: 05/29/16 Status: Ordered Lasix 20 mg oral tablet See Instructions, TAKE ONE TABLET BY MOUTH DAILY UNTIL FOLLOW UP WITH DR. FOOTE , # 60 tabs, 1 Refill(s), eRx: [facility] #[id number], TAKE ONE TABLET BY MOUTH DAILY UNTIL [...] 0 Refill(s) Start Date: 06/18/16 Status: Ordered Cascade 5 mg-325 mg oral tablet 1-2 tabs, Oral, q6hr, # 30 tabs, 0 Refill(s) Start Date: 07/15/16 Stop Date: 08/15/16 Status: Ordered Norvasc 5 mg, Oral, Daily, 0 Refill(s) Start Date: 09/19/15 Status: Ordered PriLOSEC OTC 20 mg oral delayed release tablet 20 mg 1 tabs, Oral, Daily, # 90 tabs, 3 Refill(s), Pharmacy: [facility] # [id number], 1 tabs Oral Daily Start Date: 11/08/14 Status: Ordered ProAir HFA 90 mcg/inh inhalation aerosol 1 puffs, Inhalation, QID, as needed for wheezing, # 8.5 g, 3 Refill(s), Pharmacy : [facility] #[id number] Start Date: 01/07/15 Status: Ordered tiZANidine 2 mg oral tablet See Instructions, TAKE 2-4 TABLETS BY MOUTH DAILY, # 120 tabs, 3 Refill(s), Pharmacy: [facility] #[id number], TAKE 2-4 TABLETS BY MOUTH DAILY Start Date: 06/30/16 Status: Ordered Tylenol with Codeine #3 oral tablet 1-2 tabs, Oral, q6hr, as needed for pain, must last 30 days, # 200 tabs, 2 Refill(s) Start Date: 07/15/16 Status: Ordered Results Hematology Most recent to 1 oldest [Reference Range]: WBC [4.8-10.8 7.3 10*3/uL 10*3/uL] (07/31/16 11:15 AM) RBC [4.00-5.20] 3.77 *LOW* (07/31/16 11:15 AM) Hgb [12.0-16.0 11.8 gm/dL gm/dL] *LOW* (07/31/16 11:15 AM) Hct [37.0-47.0 %] 37.8 % (07/31/16 11:15 AM) MCV [82.0-99.0 fL] 100.3 fL *HI* (07/31/16 11:15 AM) MCH [27.0-32.0 pg] 31.3 pg (07/31/16 11:15 AM) MCHC [32.0-36.0 31.2 gm/dL gm/dL] *LOW* (07/31/16 11:15 AM) RDW [11.5-14.5 %] 13.6 % (07/31/16 11:15 AM) Platelet [150-400 249 10*3/uL 10*3/uL] (07/31/16 11:15 AM) MPV [8.8-14.8 fL] 9.1 fL (07/31/16 11:15 AM) Immature 0.1 % Granulocytes (07/31/16 11:15 AM) [0.0-1.0 %] Neutrophils [51-75 65 % %] (07/31/16 11:15 AM) Lymphocytes [20-46 22 % %] (07/31/16 11:15 AM) Monocytes [4-11 %] 9 % (07/31/16 11:15 AM) Eosinophils [0-4 %] 4 % (07/31/16 11:15 AM) Basophils [0-2 %] 0 % (07/31/16 11:15 AM) Neutro Absolute 4.76 [1.90-7.00] (07/31/16 11:15 AM) Lymph Absolute 1.59 [0.80-3.30] (07/31/16 11:15 AM) [place] Absolute 0.66 [0.30-1.00] (07/31/16:15 AM) Eos Absolute 0.29 [0.00-0.50] (07/31/16:15 AM) Baso Absolute 0.03 [0.00-0.20] (07/31/1615 AM) Chemistry Most recent to 1 oldest [Reference Range]: Sodium Lvl [135-144 140 mEq/L mEq/L] (07/31/16 AM) Potassium Lvl 4.6 mEq/L [3.5-5.2 mEq/L] (07/31/16 AM) Chloride [99-111 111 mEq/L mEq/L] (07/31/16 AM) CO2 [22-31 mEq/L] 21 mEq/L *LOW* (07/31/16 AM) AGAP [3-20] 8 (07/31/16:15 AM) BUN [10-20 mg/dL] 22 mg/dL *HI* (07/31/16 AM) Glucose Lvl [70-99 80 mg/dL mg/dL] (07/31/1615 AM) Creatinine Lvl 0.86 mg/dL [0.57-1.11 mg/dL] (07/31/16:15 AM) eGFR [>60 mL/min] >60 mL/min 1 (07/31/1615 AM) Calcium Lvl 9.2 mg/dL 2 [8.4-10.2 mg/dL] (07/31/16:15 AM) Albumin Lvl [3.4-4.8 4.0 gm/dL gm/dL] (07/31/16 AM) Total Protein 5.9 gm/dL [6.0-7.6 gm/dL] *LOW* (07/31/16 AM) Globulin [1.8-4.0 1.9 gm/dL gm/dL] (07/31/1615 AM) ALT [0-55 U/L] 16 U/L (07/31/16:15 AM) AST [5-34 U/L] 16 U/L (07/31/16:15 AM) Alk Phos [40-150 86 U/L U/L] (07/31/16 11:15 AM) Bili Total [0.2-1.2 0.4 mg/dL mg/dL] (07/31/16 11:15 AM) 1Result Comment: Multiply eGFR results by 1.21 for race. 2Result Comment: Please note reference range change effective 07/31/2016. Immunizations Given and Recorded Vaccine Date Status [...] years: 451 1Quit 2003. Assessment and Plan No data available for this section
--- OUTSIDE RECORDS SUMMARY | 2016-10-04 18:12 | XMS REPORT | Referral Summary ---
Author Author [facility], [facility] Organization [facility] Address Unknown Phone Unavailable Care Team Providers Care Graphics Editor Name Role Phone Jeimy Black Primary Care Physician [phone] Encounter VC Date(s): 06/30/16 - 06/30/16 [facility] [address] [place] [id number] Discharge Diagnosis: Hospital discharge follow-up Discharge Diagnosis: Feet/Legs Edema Discharge Diagnosis: Supplemental oxygen dependent Discharge Diagnosis: Sepsis due to methicillin resistant Staphylococcus aureus ( MRSA) Discharge Disposition: -Home or Self Care Attending Physician: Corine Black DO Admitting Physician: Corine Black DO Vital Signs Most recent to 1 oldest [Reference Range]: Temperature Tympanic 35.9 degC [36.6-38.1 degC] *LOW* (06/30/16 9:35 AM) Peripheral Pulse 72 bpm Rate [60-100 bpm] (06/30/16 9:35 AM) Blood Pressure 114/68 mmHg [90-140/60-90 mmHg] (06/30/16 9:35 AM) SpO2 93 % (06/30/16 9:35 AM) Problem List Condition Effective Dates Status [...] AFTER USE, # 60 unknown unit, eRx: [facility] #[id number] Start Date: 06/23/16 Status: Ordered aspirin 81 mg, Oral, Daily, 1 tab, 0 Refill(s) Start Date: 05/10/14 Status: Ordered atorvastatin 40 mg oral tablet See Instructions, TAKE ONE TABLET BY MOUTH EVERY NIGHT AT BEDTIME, # 90 tabs, 1 Refill(s), eRx: [facility] #[id number], TAKE ONE TABLET BY MOUTH EVERY NIGHT AT BEDTIME Start Date: 01/20/16 Status: Ordered Coricidin 325 mg-2 mg oral tablet 2 tabs, Oral, qAM, as needed for allergy symptoms, 0 Refill(s) Start Date: 02/12/14 Status: Ordered Cozaar 100 mg oral tablet 100 mg 1 tabs, Oral, Daily, Dose decreased to 50mg at [facility] on 06/16/16, # 90 tabs, 3 Refill(s), Pharmacy: [facility] #[id number] Start Date: 07/01/15 Status: Ordered CPAP Machine (DME) DME Item at bedtime ([facility]), See Instructions, # 1 Each, 0 Refill(s), Supply Start Date: 06/04/15 Status: Ordered Home Oxygen (DME) DME Item 2L/min, See Instructions, # 1 Each, 0 Refill(s), Supply Start Date: 05/29/16 Status: Ordered Lasix 20 mg oral tablet See Instructions, TAKE ONE TABLET BY MOUTH DAILY UNTIL FOLLOW UP WITH DR. FOOTE , # 60 tabs, 1 Refill(s), eRx: [facility] #[id number], TAKE ONE TABLET BY MOUTH DAILY UNTIL [...] 0 Refill(s) Start Date: 06/18/16 Status: Ordered [place] 5 mg-325 mg oral tablet 1-2 tabs, Oral, q6hr, 0 Refill(s) Start Date: 06/18/16 Status: Ordered Norvasc 5 mg, Oral, Daily, 0 Refill(s) Start Date: 09/19/15 Status: Ordered PriLOSEC OTC 20 mg oral delayed release tablet 20 mg 1 tabs, Oral, Daily, # 90 tabs, 3 Refill(s), Pharmacy: [facility] # [id number], 1 tabs Oral Daily Start Date: 11/08/14 Status: Ordered ProAir HFA 90 mcg/inh inhalation aerosol 1 puffs, Inhalation, QID, as needed for wheezing, # 8.5 g, 3 Refill(s), Pharmacy : [facility] #[id number] Start Date: 01/07/15 Status: Ordered tiZANidine 2 mg oral tablet See Instructions, TAKE 2-4 TABLETS BY MOUTH DAILY, # 120 tabs, 3 Refill(s), Pharmacy: [facility] #[id number], TAKE 2-4 TABLETS BY MOUTH DAILY Start [...] 06/06/09 History of lung surgery 2001 Angioplasty 1993 Hysterectomy 1970 Adenoidectomy Appendectomy Breast biopsy and related procedures Dilation and curettage Stent placement Tonsillectomy Uses CPAP @ Night Social History Social History Type Response Smoking Status Former smoker; Type: Cigarettes; Tobacco use per day: 2.5; Number of years: 451 1Quit 2003. Assessment and Plan Extracted from: Title: Ambulatory Patient Education Author: Corine Black DO Date: 06/30/16 Surgery Peripheral Edema You have swelling in your legs (peripheral edema). This swelling is due to excess accumulation of salt and water in your body. Edema may be a sign of heart , kidney or liver disease, or a side effect of a medication. It may also be due to problems in the leg veins. Elevating your legs and using special support stockings may be very helpful, if the cause of the swelling is due to poor venous circulation. Avoid long periods of standing, whatever the cause. Treatment of edema depends on identifying the cause. Chips, pretzels, pickles and other salty foods should be avoided. Restricting salt in your diet is almost always needed. Water pills (diuretics) are often used to remove the excess salt and water from your body via urine. These medicines prevent the kidney from reabsorbing sodium. This increases urine flow. Diuretic treatment may also result in lowering of potassium levels in your body. Potassium supplements may be needed if you have to use diuretics daily. Daily weights can help you keep track of your progress in clearing your edema. You should call your caregiver for follow up care as recommended. SEEK IMMEDIATE MEDICAL CARE IF: You have increased swelling, pain, redness, or heat in your legs. You develop shortness of breath, especially when lying down. You develop chest or abdominal pain, weakness, or fainting. You have a fever. This information is not intended to replace advice given to you by your health care provider. Make sure you discuss any questions you have with your health care provider. Document Released: 07/22/2005 Document Revised: 09/05/2012 Document Reviewed: [employer] Interactive Patient Education 2016 [employer] No follow up information was provided. Extracted from: Title: Office Visit Note Author: Corine Black DO Date: 06/30/16 Assessment/Plan Feet/Legs Edema Almost entirely resolved this time,continue to monitor symptomatically and return to clinic if needed. Ordered: [facility] 14 Day Disch 36320 Hospital discharge follow-up Doing well. Ordered: [facility] 14 Day Disch [id number] Sepsis due to methicillin resistant Staphylococcus aureus (MRSA) Continue vancomycin as per infectious disease, return to clinic in 1 month for follow-up. Ordered: [facility] 14 Day Disch [id number] Supplemental oxygen dependent She continues to use this all night long and as needed during the day, we' ll reevaluate her need at next visit in about one month. She should return to clinic sooner if needed. Ordered: [facility] 14 Day Disch [id number]
--- OUTSIDE RECORDS SUMMARY | 2016-10-04 18:12 | XMS REPORT | Continuity of Care Document ---
Author Author [facility] Organization [facility] Address Unknown Phone Unavailable Support Name Relationship Address Phone KATE BAUTISTA MD Caregiver [address] [place] [address] [place] [id number] GA ABRAMS MD Caregiver [address] [place] [address] [place] [address] ARAM[place] [address] Unavailable ANDREW VALERO MD Caregiver [address] [place] [address] [phone] DHIRAJ CARPIO Next Of Kin [address] [place] [address] [phone] Insurance Providers Payer Name Policy Number Subscriber Name Relationship Medicare [id number] Gila Carpio 16 Self [employer] [facility] [id number] Gila Carpio 18 Self Advance Directives Directive Response Recorded Date/Time Ordered Resuscitation Status Full Code 07/05/14 10:02am Chief Complaint and Reason for Visit Chief Complaint PNEUMONIA, METABOLIC ACIDOSIS, SEPSIS Reason for Visit Metabolic acidosis Pneumonia Sepsis Hyperosmolality and hypernatremia Hypokalemia CAD of autologous bypass graft HTN (hypertension) Hypercholesteremia COPD (chronic obstructive pulmonary disease) GERD (gastroesophageal reflux disease) Depression Headache Postsurgical ovarian failure Status post partial removal of lung Hx of appendectomy Tachycardia Sepsis Nausea Hyperosmolality and hypernatremia Hypokalemia Problems Medical Problems Problem Onset Date Status Metabolic acidosis Unknown Resolved Pneumonia Unknown Active Sepsis ~06/2014 Active Hyperosmolality and hypernatremia Unknown [...] Hyperosmolality and hypernatremia Unknown Active Hypokalemia Unknown Active Surgical Problems Problem Onset Date Recorded Date/Time Status Status post partial removal of lung Unknown 07/05/2014 12:09pm Resolved Hx of appendectomy Unknown 07/05/2014 12:09pm Resolved Medications Medication Dose Route Sig Days/Qty Instructions Order Date Discontinued Date Status Acetaminophen With Codeine 1 Tab PO EVERY 4 HOURS PRN PRN ORDERS 11/04 Active Salmeterol Xinafoate/Fluticasone 1 Disk IH TWICE A DAY 06/06/0911/04 Discontinued Atorvastatin Calcium 80 Mg PO DAILY 06/06/09 10/10/09 Discontinued Tizanidine Hcl 2 Mg PO Every 6 Hours PRN PRN ORDERS 10/10/09 Active Diltiazem Hcl 180 Mg PO DAILY 10/10/09 Active Aspirin 81 Mg PO DAILY 10/10/09 Active Salmeterol Xinafoate/Fluticasone 1 Disk IH TWICE A DAY 10/10/09 Active [Cozaar] 1 Tab PO DAILY 10/10/09 07/05/14 Discontinued Metoprolol Succinate 50 Mg PO DAILY 07/05/14 Active Losartan Potassium 100 Mg PO DAILY 07/05/14 Active Fluticasone Propionate 1 Puff ORAL INH TWICE A DAY 07/05/14 Active Prednisone 20 Mg PO GIVE WITH BREAKFAST 12 Days Take 3 tabs daily for 3 days, 2 tabs daily for 3 days, 1 07/12/14 Active Levofloxacin 500 Mg PO BEFORE BREAKFAST 5 Days 07/12/14 Active Social History Social History Problem Response Recorded Date/Time Hx Substance Use No 07/05/2014 6:17am Hx Alcohol Use N QUIT IN 198207/05/2014 6:17am Has the pt used tobacco in the last 12 months No 07/05/2014 11:11am Tobacco Usage none 07/05/2014 12:15pm Query Response Start Date Stop Date Smoking Status Former smoker Hospital Discharge Instructions Instructions: Care Instructions: Reason for Hospitalization: pneumonia, metabolic acidosis I was in the hospital because (patient own words): "pneumonia and sepsis" Discharge Diet: reg Discharge Activity: as tolerated Follow Up Appointments: Appointment scheduled with Dr. Valero's practicioner Anisa Snowden at 10:00 am July 19--please come 10-15 minutes early to check in per their request. Patient Instructions: use home o2 continuously until seen by dr. valero for clearance continue to use cpap continue to use nebulized treatments Durable Medical Equipment: home o2 Condition at time of discharge: Good Fever over 100.4, increase in abdominal pain or other worrisome symptoms. Call Dr. Keller with blood sugar levels if not controlled. Condition at time of discharge: Good - Avoid constipation - you may use an over the counter stool softener such as Colace (or generic). If no BM for > 48 hours then a dose of Miralax is recommended. Condition at time of discharge: Good Plan of Care Discharge Date 07/12/14 4:26pm Disposition 01 DISCHARGED HOME, SELF-CARE Instructions/Education Provided DI for Pneumonia -- Adult Prescriptions See Medications Section Functional Status Query Response Date Recorded Physical Hygiene Self July 12, 2014 3:22pm Disabilities Visual July 12, 2014 3:22pm Devices Used Glasses July 12, 2014 3:22pm Dressing Self July 12, 2014 3:22pm Ambulation Self July 12, 2014 3:22pm Diet Self July 12, 2014 3:22pm Mental Status Alert Oriented July 12, 2014 3:22pm Disabilities Visual July 12, 2014 3:22pm Devices Used Glasses July 12, 2014 3:22pm Physical Hygiene Self July 12, 2014 3:22pm Dressing Self July 12, 2014 3:22pm Ambulation Self July 12, 2014 3:22pm Diet Self July 12, 2014 3:22pm Allergies, Adverse Reactions, Alerts Allergen Type Severity Reaction Status Last Updated amoxicillin trihydrate Allergy Unknown Active 07/05/14 Sulfa (Sulfonamide Antibiotics) Allergy Unknown Active 07/05/14 potassium clavulanate Allergy Unknown Active 07/05/14 Immunizations Name Given Type Hx Influenza Vaccination Y March 2014 Historical Hx Pneumococcal Vaccination Y March 2014 Historical Hx Tetanus, Diptheria, Pertussis No Historical Hx Influenza Vaccination Y March 2014 Historical Hx Tetanus Diptheria No Historical Hx Tetanus, Diptheria, Pertussis No Historical Hx Tetanus Toxoid Vaccination Y unknown date Historical Vital Signs Acute Vital Signs Vital Response Date/Time Temperature (Fahrenheit) 97.4 deg F (96.8 - 99.1) Temperature (Calculated Celsius) 36.23543 degrees C (36.0 - 37.3) Temperature Source Oral Pulse Rate (adult) 74 bpm (60 - 100) Respiratory Rate 20 breaths/min (10 - 20) O2 Sat by Pulse Oximetry 93 % (90 - 100) Oxygen Delivery Method Nasal Cannula Oxygen Flow Rate 1.50 L/min Blood Pressure 152/80 mm Hg Blood Pressure Source Automatic Cuff Height 5 ft 4 in Weight 223 lb Body Mass Index 38.0 kg/m^2 Results Test Source Date Result Interp. Ref. Range Comments Activated Partial Thromboplast Time October 10, 2009 3:25pm 31.1 SEC N 24- 36 Alanine Aminotransferase (ALT/SGPT) July 07, 2014 4:34am 39 U/L N 9- 52 Albumin July 09, 2014 5:01am 3.0 G/DL L 3.5-5.0 Albumin/Globulin Ratio July 07, 2014 4:34am 1.2 RATIO N 1.1-2.2 Alkaline Phosphatase July 07, 2014 4:34am 126 U/L DN 38-126 Anion Gap July 12, 2014 4:59am 4 MEQ/L L 5-15 Arterial Blood Base Excess July 05, [...] 80- 100 Aspartate Amino Transf (AST/SGOT) July 07, 2014 4:34am 22 U/L DN 14- 36 B-Type Natriuretic Peptide October 10, 2009 3:25pm 110 PG/ML H 15-100 BUN/Creatinine Ratio July 12, 2014 4:59am 46 RATIO H 6-26 Band Neutrophils # July 10, 2014 11:22am 0.3 T/MM3 - Band Neutrophils % July 10, 2014 11:22am 3.0 % N 0-6 Basophils # (Auto) July 06, 2014 5:09am 0.0 T/MM3 N 0-0.2 Basophils (%) (Auto) July 06, 2014 5:09am 0.1 % N 0-2 Blood Urea Nitrogen July 12, 2014 4:59am 37.0 MG/DL H 7-17 Calcium Level July 12, 2014 4:59am 8.6 MG/DL N 8.4-10.2 Calculated Osmolality July 12, 2014 4:59am 282 MOSM/KG H 261-280 Carbon Dioxide Level July 12, 2014 4:59am 24 MEQ/L N 22-30 Chemistry Specimen Hemolysis July 12, 2014 4:59am < 15 0-25 0-25: No Hemolysis.26-70: Slight [...] Phenytoin. Recommend specimen recollection. Chloride Level July 12, 2014 4:59am 111 MEQ/L DH 98-107 Creatinine July 12, 2014 4:59am 0.8 MG/DL N 0.7-1.2 D-Dimer July 05, 2014 6:11am 414 NG/ML H 0-230 <230 NG/ML D-DU= PRESUMPTIVE NEGATIVE FOR PE OR DVT>230 NG/ML D-DU=ADDITIONAL EVAL FOR PE OR DVT RECOMMENDED Eosinophils # (Auto) July 06, 2014 5:09am 0.0 T/MM3 N 0-0.5 Eosinophils # (Manual) July 10, 2014 11:22am 0.1 T/MM3 N 0-0.5 Eosinophils % (Manual) July 10, 2014 11:22am 1.0 % N 0-4 Eosinophils (%) (Auto) July 06, 2014 5:09am 0.0 % N 0-4 Globulin July 07, 2014 4:34am 2.7 G/DL N 2.4-3.6 Glomerular Filtration Rate Calc July 12, 2014 4:59am 71 - Glucose Level July 12, 2014 4:59am 181 MG/DL H 65-110 Hematocrit July 12, 2014 4:59am 36.6 % N 36-46 Hemoglobin July 12, 2014 4:59am 12.0 GM/DL N 12-16 Icterus Index July 12, 2014 4:59am < 2 0-7 Immature Granulocyte # (Auto) July 06, 2014 5:09am 0.12 T/MM3 H 0.00- 0.03 Immature Granulocyte % (Auto) July 06, 2014 5:09am 1.6 % H 0.0-0.5 Influenza Type A Antigen July 05, 2014 5:48am Negative - Negative for Flu A protein antigen. Assay sensitivity is90%. Influenza Type B Antigen July 05, 2014 5:48am Negative - Negative for Flu B protein antigen. Assay sensitivity is90%. Lab Scanned Report July 02, 2014 12:29pm LAB TEST FORM REQUEST [id number] - Lymphocytes # (Auto) July 06, 2014 5:09am 1.2 T/MM3 N 1-4.8 Lymphocytes # (Manual) July 12, 2014 4:59am 0.2 T/MM3 L 1-4.8 Lymphocytes % (Manual) July 12, 2014 4:59am 2.0 % L 23-45 Lymphocytes (%) (Auto) July 06, 2014 5:09am 15.9 % L 23-45 Magnesium Level July 11, 2014 4:28am 2.2 MG/DL N 1.6-2.3 Mean Corpuscular Hemoglobin July 12, 2014 4:59am 32.3 UUG N 26-34 Mean Corpuscular Hemoglobin Concent July 12, 2014 4:59am 32.8 GM/DL N 31-37 Mean Corpuscular Volume July 12, 2014 4:59am 98.7 UM3 N 80-100 Mean Platelet Volume July 12, 2014 4:59am 8.8 UM3 L 9.4-12.4 Metamyelocytes # July 08, 2014 4:44am 0.1 T/MM3 - Metamyelocytes % July 08, 2014 4:44am 1.0 % H 0-0 Monocytes # (Auto) July 06, 2014 5:09am 0.2 T/MM3 N 0-0.8 Monocytes # (Manual) July 12, 2014 4:59am 0.1 T/MM3 N 0-0.8 Monocytes % (Manual) July 12, 2014 4:59am 1.0 % N 0-9.0 Monocytes (%) (Auto) July 06, 2014 5:09am 2.6 % N 0-9.0 VW-Afi-Y-Type Natriuretic Peptide July 02, 2014 10:15am 527 PG/ML H 0 -175 Rule in cut points: <50 years old=450; 50-75 years old=900; >75 years old=1800; When utilizing ProBNP rule-in cut points, adjustment for impaired renal function is typically not required. Neutrophils # (Auto) July 06, 2014 5:09am 6.2 T/MM3 N 1.8-7.7 Neutrophils # (Manual) July 12, 2014 4:59am 7.9 T/MM3 H 1.8-7.7 Neutrophils % (Manual) July 12, 2014 4:59am 97.0 % H 33-66 Neutrophils (%) (Auto) July 06, 2014 5:09am 79.8 % H 33-66 Nucleated Red Blood Cells July 07, 2014 4:34am 2 - Oxygen Delivery Method (LAB) July 05, 2014 8:07am Room air - Phosphorus Level July 09, 2014 5:01am 2.1 MG/DL L 2.5-4.5 Platelet Count July 12, 2014 4:59am 275 T/MM3 N 130-400 Potassium Level July 12, 2014 4:59am 3.9 MEQ/L DN 3.6-5 Prealbumin July 05, 2014 6:11am 15.8 [...] FOR IMPLANTED VALVE RDW Standard Deviation July 12, 2014 4:59am 50.2 FL N 36.9-50.2 Reactive Lymphocytes # July 09, 2014 5:01am 0.1 T/MM3 H 0-0 Reactive Lymphocytes % July 09, 2014 5:01am 1.0 % H 0-0 Red Blood Count July 12, 2014 4:59am 3.71 M/MM3 L 4.00-5.20 Sodium Level July 12, 2014 4:59am 139 MEQ/L N 134-144 Thyroid Stimulating Hormone (TSH) July 05, 2014 6:11am 1.74 MIU/L N 0.47-4.68 COMMENT blood in lab Total Bilirubin July 07, 2014 4:34am 0.20 MG/DL N 0.20-1.30 Total Protein July 07, 2014 4:34am 5.9 G/DL L 6.3-8.2 Troponin I July 05, 2014 6:11am 0.036 ng/ml N 0-0.12 Turbidity July 12, 2014 4:59am < 20 0-20 Urine Amorphous Urates July 05, 2014 12:00am Few - Has specimen been collected/obtained? Y Urine Bacteria July 05, 2014 12:00am Trace H - Has specimen been collected/obtained? Y Urine Bilirubin July 05, 2014 12:00am Negative - Has specimen been collected/obtained? Y Urine Blood July 05, 2014 12:00am Trace-intact H - Has specimen been collected/obtained? Y Urine Collection Type July 05, 2014 12:00am Voided-not cc-midstr - Has specimen been collected/obtained? Y Urine Color July 05, 2014 12:00am Yellow - Has specimen been collected/obtained? Y Urine Glucose (UA) July 05, 2014 12:00am Negative - Has specimen been collected/obtained? Y Urine Ketones July 05, 2014 12:00am 3+ H - Has specimen been collected/obtained? Y Urine Leukocyte Esterase July 05, 2014 12:00am Negative - Has specimen been collected/obtained? Y Urine Nitrite July 05, 2014 12:00am Negative - Has specimen been collected/obtained? Y Urine Protein July 05, 2014 12:00am 1+ H - Has specimen been collected/obtained? Y Urine RBC July 05, 2014 12:00am 0-1 /HPF - Has specimen been collected/obtained? Y Urine Specific Powers July 05, 2014 12:00am 1.010 L - Has specimen been collected/obtained? Y Urine Squamous Epithelial Cells July 05, 2014 12:00am 0-5 - Has specimen been collected/obtained? Y Urine Turbidity July 05, 2014 12:00am Clear - Has specimen been collected/obtained? Y Urine Urobilinogen July 05, 2014 12:00am 0.2 EU/DL - Has specimen been collected/obtained? Y Urine WBC July 05, 2014 12:00am None seen /HPF - Has specimen been collected/obtained? Y Urine pH July 05, 2014 12:00am 6.0 - Has specimen been collected/ obtained? Y Venous Blood Lactate July 05, 2014 8:20am 1.3 MMOL/L N 0.6-2.2 Vitamin B12 Level July 05, 2014 6:11am > 1000 PG/ML H 239-931 COMMENT blood in lab White Blood Count July 12, 2014 4:59am 8.1 T/MM3 N 4.5-11.0 Blood Culture Peripheral Blood July 05, 2014 8:20am NO GROWTH AFTER 5 DAYS Name: GILA CARPIO Unit #: [id number] : 1945 Sex: F Loc / Svc: MED DOS: 07/05/14 Signed Report #: [id number] DIAGNOSTIC IMAGING REPORT TYPE OF EXAM: CHEST, PA & LATERAL Dictated By: LUC BAUER MD INDICATION: ITS.REASON: Pneumonia CHEST 2-VIEWS UPRIGHT (PA & LAT): COMPARISON: July 05, 2014 FINDINGS: Airspace consolidation in the lower lobes is redemonstrated without significant interval change. No new airspace disease. Left PICC line now in place with the tip projecting over the lower SVC. No pneumothorax. Heart size and mediastinal contours are stable. Pulmonary vascularity is normal. Small bilateral effusions may be slightly larger. Impression: Slight increase in pleural effusions. Stable lower lobe airspace disease. . Procedures Procedure Status Date Provider(s) METABOLIC PANEL TOTAL CA completed 05/11/14 METABOLIC PANEL TOTAL CA completed 07/02/14 ASSAY OF NATRIURETIC PEPTIDE completed 07/02/14 FIBRIN DEGRADATION QUANT completed 07/02/14 Encounters Encounter Location Date/Time Discharged Inpatient [facility] 07/05/14 9:55am Registered Clinic [facility] 07/02/14 10:30am Registered [facility] 05/11/14 10:24am Recent Diagnosis Metabolic acidosis Pneumonia Sepsis Hyperosmolality and hypernatremia Hypokalemia CAD of autologous bypass graft HTN (hypertension) Hypercholesteremia COPD (chronic obstructive pulmonary disease) GERD (gastroesophageal reflux disease) Depression Headache Postsurgical ovarian failure Tachycardia Sepsis Nausea Hyperosmolality and hypernatremia Hypokalemia
--- OUTSIDE RECORDS SUMMARY | 2016-10-04 18:12 | XMS REPORT | Referral Summary ---
Author Author [facility] Organization [facility] Address Unknown Phone Unavailable Care Team Providers Care [employer] Supervisor Name Role Phone Jeimy Black Primary Care Physician [phone] Encounter Date(s): 08/03/16 - 08/03/16 [facility] [address] [place], [place] [address] Discharge Diagnosis: Chronic obstructive pulmonary disease Discharge Diagnosis: Chronic GERD Discharge Diagnosis: Exercise hypoxemia Discharge Diagnosis: Shortness of breath Discharge Disposition: 01-Home or Self Care Attending Physician: Edmond Cristina MD Vital Signs Most recent to 1 oldest [Reference Range]: Peripheral Pulse 66 bpm Rate [60-100 bpm] (08/03/16 9:06 AM) Respiratory Rate 16 br/min [14-20 br/min] (08/03/16 9:06 AM) Blood Pressure 122/70 mmHg [90-140/60-90 mmHg] (08/03/16 9:06 AM) SpO2 99 % (08/03/16 9:06 AM) Problem List Condition Effective Dates Status [...] AFTER USE, # 60 unknown unit, eRx: [facility] #[id number] Start Date: 07/23/16 Status: Ordered aspirin 81 mg, Oral, Daily, 1 tab, 0 Refill(s) Start Date: 05/10/14 Status: Ordered atorvastatin 40 mg oral tablet See Instructions, TAKE ONE TABLET BY MOUTH EVERY NIGHT AT BEDTIME, # 90 tabs, 1 Refill(s), eRx: [facility] #[id number], TAKE ONE TABLET BY MOUTH EVERY NIGHT AT BEDTIME Start Date: 01/20/16 Status: Ordered Coricidin 325 mg-2 mg oral tablet 2 tabs, Oral, qAM, as needed for allergy symptoms, 0 Refill(s) Start Date: 02/12/14 Status: Ordered Cozaar 100 mg oral tablet 100 mg 1 tabs, Oral, Daily, Dose decreased to 50mg at [facility] on 06/16/16, # 90 tabs, 3 Refill(s), Pharmacy: [facility] #[id number] Start Date: 07/01/15 Status: Ordered CPAP Machine (DME) DME Item at bedtime ([facility]), See Instructions, # 1 Each, 0 Refill(s), Supply Start Date: 06/04/15 Status: Ordered Home Oxygen (DME) DME Item 2L/min, See Instructions, # 1 Each, 0 Refill(s), Supply Start Date: 05/29/16 Status: Ordered Lasix 20 mg oral tablet See Instructions, TAKE ONE TABLET BY MOUTH DAILY UNTIL FOLLOW UP WITH DR. FOOTE , # 60 tabs, 1 Refill(s), eRx: [facility] #[id number], TAKE ONE TABLET BY MOUTH DAILY UNTIL FOLLOW UP WITH DR. FOOTE Start Date: 05/06/15 Status: Ordered metoprolol tartrate 25 mg oral [...] Daily, # 90 tabs, 3 Refill(s), Pharmacy: [facility] # [id number], 1 tabs Oral Daily Start Date: 11/08/14 Status: Ordered ProAir HFA 90 mcg/inh inhalation aerosol 1 puffs, Inhalation, QID, as needed for wheezing, # 8.5 g, 3 Refill(s), Pharmacy : [facility] #[id number] Start Date: 01/07/15 Status: Ordered tiZANidine 2 mg oral tablet See Instructions, TAKE 2-4 TABLETS BY MOUTH DAILY, # 120 tabs, 3 Refill(s), Pharmacy: [facility] #[id number], TAKE 2-4 TABLETS BY MOUTH DAILY Start Date: 06/30/16 Status: Ordered Tylenol with Codeine #3 oral tablet 1-2 tabs, Oral, q6hr, as needed for pain, must last 30 days, # 200 tabs, 2 Refill(s) Start Date: 07/15/16 Status: Ordered Results No data available for [...] 10/09/13 Colonoscopy 06/06/09 History of lung surgery 2002 Angioplasty 1994 Hysterectomy 1970 Adenoidectomy Appendectomy Breast biopsy and related procedures Dilation and curettage Stent placement Tonsillectomy Uses CPAP @ Night Social History Social History Type Response Smoking Status Former smoker; Type: Cigarettes; Tobacco use per day: 2.5; Number of years: 451 1Quit 2003. Assessment and Plan Extracted from: Title: Office Visit Note Author: Edmond Cristina MD Date: 08/03/16 Assessment/Plan 1.Shortness of breath shereports that she has not recovered in regards to her conditioning since recent admit. She is notable for lower extremity edema.will check bnp andconsider diuresis. Ordered: B-Type Natriuretic Peptide 2. Chronic obstructive pulmonary disease continue advair, encouraged activity. 3. GERD (gastroesophageal reflux disease) continue protonix 4. Exercise hypoxemia she had been placed on oxygen since last visit. Walked in her in the office. She dropped to 89% and was not willing to continue to walk. 5. Recent pneumonia will get her cxr from [facility] to evaluate complete resolution of her pneumonia I have reviewed the patientsradiology and imaging results I have reviewed old records I have reviewed the literature I have discussed the plan of care with the patient. follow up in one year.
--- OUTSIDE RECORDS SUMMARY | 2016-10-04 18:12 | XMS REPORT | Referral Summary ---
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 Discharge Diagnosis: Acidosis, metabolic Discharge Diagnosis: Rhinovirus infection Discharge Diagnosis: Hospital discharge follow-up Discharge Diagnosis: COPD with acute exacerbation Discharge Disposition: -Home or Self Care Attending Physician: Corine Black DO Admitting Physician: Corine Black DO Vital Signs Most recent to 1 oldest [Reference Range]: Temperature Tympanic 36.7 degC [36.6-38.1 degC] (05/29/16 1:07 PM) Peripheral Pulse 68 bpm Rate [60-100 bpm] (05/29/16 1:07 PM) Blood Pressure 130/80 mmHg [90-140/60-90 mmHg] (05/29/16 1:07 PM) SpO2 97 % (05/29/16 1:07 PM) Problem List Condition Effective Dates Status [...] Advair Diskus 500 mcg-50 mcg inhalation powder 1 puffs, Inhalation, BID, rinse mouth and throat after use, # 60 Each, 9 Refill( s), Pharmacy: [facility] #[id number] Start Date: 08/05/15 Status: Ordered albuterol 2.5 mg/3 mL (0.083%) inhalation solution 2.5 mg 3 mL, NEB, q6hr (scheduled), # 120 Each, 0 Refill(s) Start Date: 05/29/16 Status: Ordered aspirin 81 mg, Oral, Daily, 1 tab, 0 Refill(s) Start Date: 05/10/14 Status: Ordered atorvastatin 40 mg oral tablet See Instructions, TAKE ONE TABLET BY MOUTH EVERY NIGHT AT BEDTIME, # 90 tabs, 1 Refill(s), eRx: [facility] #[id number], TAKE ONE TABLET BY MOUTH EVERY NIGHT AT BEDTIME Start Date: 01/20/16 Status: Ordered Coricidin 325 mg-2 mg oral tablet 2 tabs, Oral, qAM, as needed for allergy symptoms, 0 Refill(s) Start Date: 02/12/14 Status: Ordered Cozaar 100 mg oral tablet 100 mg 1 tabs, Oral, Daily, # 90 tabs, 3 Refill(s), Pharmacy: [facility] # [id number], 1 tabs Oral Daily Start Date: 07/01/15 Status: Ordered CPAP Machine (DME) DME Item at bedtime ([facility]), See Instructions, # 1 Each, 0 Refill(s), Supply Start Date: 06/04/15 Status: Ordered Home Oxygen (DME) DME Item 2L/min, See Instructions, # 1 Each, 0 Refill(s), Supply Start Date: 05/29/16 Status: Ordered Lasix 20 mg oral tablet See Instructions, TAKE ONE TABLET BY MOUTH DAILY UNTIL FOLLOW UP WITH DR. FOOTE , # 60 tabs, 1 Refill(s), eRx: [facility] #[id number], TAKE ONE TABLET BY MOUTH DAILY UNTIL FOLLOW UP WITH DR. FOOTE Start Date: 05/06/15 Status: Ordered metoprolol tartrate 25 mg oral tablet 25 mg 1 tabs, Oral, BID, # 60 tabs, 0 Refill(s) Start Date: 10/08/15 Status: Ordered Misc Medication Quercetin Bromelain 500/250 - 5 times daily., 0 Refill(s) Start Date: 01/17/15 Status: Ordered Norvasc 5 mg, Oral, Daily, 0 Refill(s) Start Date: 09/19/15 Status: Ordered predniSONE Oral, Daily, 0 Refill(s) Start Date: 05/29/16 Status: Ordered PriLOSEC OTC 20 mg oral delayed release tablet 20 mg 1 tabs, Oral, Daily, # 90 tabs, 3 Refill(s), Pharmacy: [facility] # [id number], 1 tabs Oral Daily Start Date: 11/08/14 Status: Ordered ProAir HFA 90 mcg/inh inhalation aerosol 1 puffs, Inhalation, QID, as needed for wheezing, # 8.5 g, 3 Refill(s), Pharmacy : [facility] #[id number] Start Date: 01/07/15 Status: Ordered tiZANidine 2 mg oral tablet See Instructions, TAKE 2-4 TABLETS BY MOUTH DAILY, # 120 tabs, 3 Refill(s), Pharmacy: [facility] #[id number], TAKE 2-4 TABLETS BY MOUTH DAILY Start Date: 03/05/16 Status: Ordered Tylenol with Codeine #3 oral tablet 1-2 tabs, Oral, q6hr, as needed for pain, must last 30 days, # 200 tabs, 2 Refill(s) Start Date: 04/17/16 Status: Ordered Results No data available for this section Immunizations Vaccine Date Refusal Reason tetanus/diphth/pertuss (Tdap) adult/adol 06/05/10 influenza virus vaccine, inactivated 05/23/16 influenza virus vaccine, inactivated 05/16/15 influenza virus vaccine, inactivated1 05/10/14 influenza virus vaccine, live 05/03/13 pneumococcal 13-valent conjugate vaccine 05/10/14 zoster vaccine live 08/08/10 1Result Comment: [05/10/2014] see scaned doc Procedures [...] 2003. Assessment and Plan Extracted from: Title: TCM Author: Corine Black DO Date: 05/29/16 Assessment/Plan Acidosis, metabolic Ordered: Trans Care Mgmt 7 Day Disch 59671 Clostridium difficile carrier Ordered: Trans Care Mgmt 7 Day Disch 94777 COPD with acute exacerbation Ordered: Trans Care Mgmt 7 Day Disch 33384 Hospital discharge follow-up Ordered: Trans Care Mgmt 7 Day Disch 54346 Rhinovirus infection Ordered: Trans Care Mgmt 7 Day Disch 36727 Overall patient's condition has improved. She continues to have chronic C. difficile carrier state but no signs of diarrhea. She continues to have her steroid and breathing treatments which seem to be helping with herCOPD exacerbation. Her metabolic acidosis is resolved and she seems to be able to maintain adequate hydration. She will return to clinic in 2 weeks for reevaluation of her breathing status. We did discuss that she should take her oxygen everywhere with her as she needs it with any type of activity. Patient voiced understanding.
--- OUTSIDE RECORDS SUMMARY | 2016-10-04 18:13 | XMS REPORT | Referral Summary ---
Author Author [facility], [facility] Organization [facility] Address Unknown Phone Unavailable Care Team Providers Care Hand Model Name Role Phone Jeimy Black Primary Care Physician [phone] Encounter VC Date(s): 05/26/16 - 05/26/16 [facility], [address] [place] [address] Discharge Disposition: 01-Home or Self Care Attending Physician: Juvencio Martin APRN Admitting Physician: Juvencio Martin APRN Vital Signs Most recent to 1 oldest [Reference Range]: Temperature Tympanic 36.8 degC [36.6-38.1 degC] (05/26/16 10:03 AM) Peripheral Pulse 90 bpm Rate [60-100 bpm] (05/26/16 10:03 AM) Respiratory Rate 24 br/min [14-20 br/min] *HI* (05/26/16 10:03 AM) Blood Pressure 122/80 mmHg [90-140/60-90 mmHg] (05/26/16 10:03 AM) SpO2 95 % (05/26/16 10:03 AM) Problem List Condition Effective Dates Status Health Status Informant Alcoholism(Confirmed < 05/07/14 Resolved ) Allergic Active rhinitis(Confirmed) Asthma(Confirmed) Active Back/Shoulder/Joint Active pain(Confirmed) Bronchitis(Confirmed Active ) Angina/Chest Active pain(Confirmed) COPD (chronic Active obstructive [...] # 60 Each, 9 Refill( s), Pharmacy: [facility] #[id number] Start Date: 08/05/15 Status: Ordered aspirin 81 mg, Oral, Daily, 1 tab, 0 Refill(s) Start Date: 05/10/14 Status: Ordered atorvastatin 40 mg oral tablet See Instructions, TAKE ONE TABLET BY MOUTH EVERY NIGHT AT BEDTIME, # 90 tabs, 1 Refill(s), eRx: [facility] #[id number], TAKE ONE TABLET BY MOUTH EVERY NIGHT AT BEDTIME Start Date: 01/20/16 Status: Ordered Coricidin 325 mg-2 mg oral tablet 2 tabs, Oral, qAM, as needed for allergy symptoms, 0 Refill(s) Start Date: 02/12/14 Status: Ordered Cozaar 100 mg oral tablet 100 mg 1 tabs, Oral, Daily, # 90 tabs, 3 Refill(s), Pharmacy: [facility] # [id number], 1 tabs Oral Daily Start Date: 07/01/15 Status: Ordered CPAP Machine (DME) DME Item at bedtime ([facility]), See Instructions, # 1 Each, 0 Refill(s), Supply Start Date: 06/04/15 Status: Ordered Lasix 20 mg oral tablet See Instructions, TAKE ONE TABLET BY MOUTH DAILY UNTIL FOLLOW UP WITH DR. FOOTE , # 60 tabs, 1 Refill(s), eRx: [facility] #[id number], TAKE ONE TABLET BY MOUTH DAILY UNTIL [...] Daily, # 90 tabs, 3 Refill(s), Pharmacy: [facility] # [id number], 1 tabs Oral Daily Start Date: 11/08/14 Status: Ordered ProAir HFA 90 mcg/inh inhalation aerosol 1 puffs, Inhalation, QID, as needed for wheezing, # 8.5 g, 3 Refill(s), Pharmacy : [facility] #[id number] Start Date: 01/07/15 Status: Ordered tiZANidine 2 mg oral tablet See Instructions, TAKE 2-4 TABLETS BY MOUTH DAILY, # 120 tabs, 3 Refill(s), Pharmacy: [facility] #[id number], TAKE 2-4 TABLETS BY MOUTH DAILY Start Date: 03/05/16 Status: Ordered Tylenol with Codeine #3 oral tablet 1-2 tabs, Oral, q6hr, as needed for pain, must last 30 days, # 200 tabs, 2 Refill(s) Start Date: 04/17/16 Status: Ordered Results Hematology Most recent to 1 oldest [Reference Range]: WBC [5.0-10.0 19.2 10*3/uL 10*3/uL] *HI* (05/26/16 10:35 AM) RBC [3.70-5.20] 4.22 (05/26/16 10:35 AM) Hgb [12.0-16.0 13.5 gm/dL gm/dL] (05/26/16 10:35 AM) Hct [37.0-47.0 %] 40.9 % (05/26/16 10:35 AM) MCV [80.0-96.0 fL] 96.9 fL *HI* (05/26/16 10:35 AM) MCH [26.0-34.0 pg] 32.0 pg (05/26/16 10:35 AM) MCHC [32.0-36.0 33.0 gm/dL gm/dL] (05/26/16 10:35 AM) RDW [0.0-14.5 %] 12.9 % (05/26/16 10:35 AM) Platelet [150-400 271 10*3/uL 10*3/uL] (05/26/16 10:35 AM) MPV [8.8-14.8 fL] 8.5 fL *LOW* (05/26/16 10:35 AM) Neutrophils [50-70 75 % %] *HI* (05/26/16 10:35 AM) Band Man [0-6 %] 7 % *HI* (05/26/16 10:35 AM) Lymphocytes [20-40 11 % %] *LOW* (05/26/16 10:35 AM) Monocytes [4-8 %] 5 % (05/26/16 10:35 AM) Eosinophils [0-6 %] 0 % (05/26/16 10:35 AM) Basophils [0-2 %] 2 % (05/26/16 10:35 AM) Neutro Absolute 15.74 10*3 [2.50-7.00 10*3] *HI* (05/26/16 10:35 AM) Lymph Absolute 2.11 10*3 [1.00-4.00 10*3] (05/26/16 10:35 AM) Alexander Absolute 0.96 10*3 [0.20-0.80 10*3] *HI* (05/26/16 10:35 AM) Eos Absolute 0.00 10*3 [0.00-0.60 10*3] (05/26/16 10:35 AM) Baso Absolute 0.38 [0.00-0.30] *HI* (05/26/16 10:35 AM) Differential Manual *ABN* (05/26/16 10:35 AM) Immunizations Vaccine Date Refusal Reason tetanus/diphth/pertuss (Tdap) adult/adol 06/05/10 influenza virus vaccine, inactivated 05/16/15 influenza virus vaccine, inactivated1 05/10/14 influenza virus vaccine, live 05/03/13 pneumococcal 13-valent conjugate vaccine 05/10/14 zoster vaccine live 08/08/10 1Result Comment: [05/10/2014] see scaned doc Procedures Procedure Date Related Diagnosis Body Site Bone densimetry normal 4/14/14 Mammogram 10/09/13 Colonoscopy 06/06/09 History of lung [...]
[2016-10-04] MEDS ORDERED: LOSA100T2 PO (18:25)
[2016-10-04] MEDS ORDERED: ALBU8.5H INH (18:27)
[2016-10-04] MEDS ORDERED: OMEP-122 PO (18:28)
[2016-10-04] MEDS ORDERED: GUAI-1123 PO (18:29)
[2016-10-04] MEDS ORDERED: IBUP-1724 PO (18:30)
[2016-10-04] MEDS ORDERED: ACET-62 PO (18:30)
[2016-10-04] MEDS ORDERED: QUER1POW PO (18:31)
--- NOTE | 2016-10-04 18:31 | NUR ---
DR DR COLUNGA AT BEDSIDE.
[2016-10-04] MEDS ORDERED: NAPR220T PO (18:32)
[2016-10-04] MEDS ORDERED: NORMAL SALINE 500 ML IV ONE (18:36)
--- NOTE | 2016-10-04 18:42 | ERPDOC ---
Departure Disposition Decision Date: Oct 04, 2016 Disposition Decision Time: 20:24 Disposition: 01 DISCHARGED HOME, SELF-CARE Impression Impression Impression: Primary Impression: Mild dehydration Additional Impressions: UTI (urinary tract infection) Urinary tract infection type: acute cystitis Hematuria presence: without hematuria Qualified Codes: N30.00 - Acute cystitis without hematuria Nausea Severity: Moderate Condition: Improved Seen By: Physician only Referrals: ROGER BOBBY DO (Family) 1 Week Patient Instructions: Dehydration (ED) Problems/Meds/Labs Reviewed?: Yes Medications reviewed and manag: Yes Additional Instructions: We have evaluated you for causes of infection and nausea/vomiting. You were mildly dehydrated and might have the start of a urinary tract infection. Drink plenty of fluids and follow up with your doctor in the next week. Follow up care ordered?: Yes Mental Status: Alert, Oriented HPI - Abdominal Pain General Chief Complaint: Nausea,Vomiting,Diarrhea Stated Complaint: VOMITING,DIFFICULTY BREATHING Time Seen by Provider: 18:10 Source: patient, EMS History/Exam Limitations: no limitations HPI - Abdominal Pain Initial Comments 70yo woman presents to the ER tonight for nausea. Pt has had nausea, dry heaves , weakness, and presyncope for the last 6-12 hours. Sx have been getting worse over that time. Pt had a flare up of her bursitis after driving to [place] this weekend. Pt took numerous meds yesterday to improve her pain; finally got pain under control with tylenol and naproxen - pt is under care of Dr. Caceres for this complaint. This AM, pt became 'naseous'; sx have gotten progressively worse throughout the day. States that she could [facility], so she called [facility] to transport her for eval. Because of a h/o C diff, etc pts ID doc told her to be evaluated immediately if she ever has sx possibly c/w infx. Occurred At: home Onset: Gradual, Getting worse Duration: 12-24 hrs Pain Scale: Now & Worst: 5/10 Quality: aching, cramping Location: generalized abdomen Activities at Onset: none Associated Symptoms: diaphoresis, fatigue, fever/chills, heartburn, nausea/ vomiting, shortness of breath, weakness, DENIES: back pain, chest pain, headache , rash, swelling/mass in abdomen, syncope Hx of Similar Symptoms: Yes Allergies: Coded Allergies: Sulfa (Sulfonamide Antibiotics) (Verified Allergy, Unknown, 10/04/16) amoxicillin trihydrate (Verified Allergy, Unknown, 10/04/16) potassium clavulanate (Verified Allergy, Unknown, 10/04/16) Past History Patient Surgical History Heart cath - 2009. Appendectomy - 1975. Tonsillectomy - 1949. Heart stent - 1993. D&C x 6. Hysterectomy - 1975. Right lung benign tumor removed - 1993. Bilateral cateracts - 2014. Past Medical History Metabolic: hypercholesterolemia, hypertension Cardiac: CAD Respiratory: COPD, asthma, pneumonia GI: GERD, ulcers Neurological: headaches Psychological: alcohol abuse, depression Surgical History General: appendix, tonsils Cardiac: cardiac cath, cardiac stent Reproductive/: D&C, hysterectomy Family History Family PMH: FOUND: hypertension Vaccines Hx Influenza Vaccination: Yes (APR 2016) Hx Pneumococcal Vaccination: Yes (March 2014/REPORTS HAVING HAD THE SECOND ONE WELL) Hx Tetanus Diptheria: No Hx Tetanus, Diptheria, Pertuss: No Social History Does patient use chewing tobac: No # of Packs/Tins per Day: 2.5 # of Years: 45 Quit Date: Jun 28, 2003 Substance Use Type: does not use Alcohol Intake: none Marital Status: Sexuality: male partner Housing: house Household Members: spouse Current Occupational Status: retired Review of Systems Constitutional Constitutional: chills, fatigue, fever, weakness GI Upper Abdomen: heartburn/indigestion, nausea, pain, vomiting, DENIES: dysphagia , food intolerances, hematemesis Lower Abdomen: pain, DENIES: blood in stool, david-colored stools, constipation , diarrhea, melena, painful BM All other Systems All Other Systems: Reviewed and Negative Physical Exam General General Nourishment: well nourished, well developed, appears stated age, no acute distress, adult, obese General Body Habitus: well groomed Vitals and Pain First Documented Vital Signs Date Time Temp Pulse Resp B/P Pulse Ox O2 Delivery O2 Flow Rate FiO2 10/04/16 18:05 97.5 108 16 153/70 95 Room Air Weight: Kilograms: Height (feet): 5 Height (inches): 4.00 Triage Pain Scale: RN VS reviewed by Provider: Yes Eyes (brief) Eyes Brief: found: EOMI, PERRL, not found: scleral icterus ENMT (brief) ENMT Brief: FOUND: TM clear, TM good light reflex, ear canals clear, mucosa moist, normal tonsils Neck (brief) Neck: FOUND: trachea midline, NOT FOUND: JVD, adenopathy, thyromegaly Respiratory (brief) Respiratory: FOUND: clear all alaniz, equal bilaterally, symmetrical, NOT FOUND : rales, wheezes Cardiovascular (brief) Cardiac: FOUND: regular rate, regular rhythm, NOT FOUND: click, gallop, murmur , pedal edema, peripheral edema, rub Capillary Refill: <2 sec Pulses: all distal extremities, equal, strong Abdomen (brief) Abdominal Brief: FOUND: bowel normo active x4, soft, tender (TTP diffusely), NOT FOUND: distended, hepatosplenomegaly, pulsatile mass Lymphatic (brief) Lymphatic Brief: NOT FOUND: adenopathy, lymphedema Musculoskeletal (brief) Musculoskeletal Brief: NOT FOUND: deformity, loss of motion, spasm, tenderness Integumentary (brief) Integumentary Brief: FOUND: pink, warm Neurologic (brief) Neurological Brief: FOUND: CN w/o gross def to obs, gait w/o gross def to obs, motor-no gross deficits, sensory-no gross deficits, NOT FOUND: Babinski Psychiatric (brief) Psychiatric Brief: FOUND: alert, normal affect, oriented Differential Diagnoses Considering: Biliary Colic, Bowel Obstruction, Dehydration, Food Poisoning, Gastroenteritis, Ingestion/Overdose, Metabolic Alkalosis, Metabolic Acidosis, Pancreatitis, Pneumonia, Pyelonephritis, Renal Colic, Sinusitis, UTI Progress Results/Orders Orders Procedure Category Date Status Time Cbc W/Auto LAB 10/04/16 Complete Diff-Reflex Manual 18:36 Bmp - Basic Metabolic LAB 10/04/16 Complete Panel 18:36 Lipase LAB 10/04/16 Complete 18:36 Ua, Dip Wreflex LAB 10/04/16 Complete Microsc & [employer] 18:36 Kub W/Upright RAD 10/04/16 Taken 18:36 Iv Lock (Ed Only) EDM 10/04/16 Transmitted 18:36 Normal Saline (Normal PHA 10/04/16 Complete Saline Iv) 18:36 Prochlorperazine PHA 10/04/16 Complete (Compazine) 18:45 Diphenhydramine PHA 10/04/16 Complete (Benadryl) 18:45 Magnesium LAB 10/04/16 Complete Phosphorus LAB 10/04/16 Complete 18:36 Diphenhydramine PHA 10/04/16 Complete (Benadryl) 19:15 Fosfomycin PHA 10/04/16 Complete Tromethamine (Monurol) 20:30 Lab Results Laboratory Tests Test 10/04/16 17:45 10/04/16 18:46 10/04/16 20:00 Turbidity < 20 Sodium Level 146MEQ/L Potassium Level 4.1MEQ/L Chloride Level 116MEQ/L Carbon Dioxide Level 13MEQ/L Anion Gap 17MEQ/L Blood Urea Nitrogen 29.0MG/DL Creatinine 0.8MG/DL Glomerular Filtration Rate Calc 71 BUN/Creatinine Ratio 36RATIO Glucose Level 148MG/DL Calculated Osmolality 290MOSM/KG Calcium Level 9.8MG/DL Phosphorus Level 3.3MG/DL Magnesium Level 2.1MG/DL Icterus Index < 2 Lipase 134U/L Chemistry Specimen Hemolysis < 15 White Blood Count 9.2T/MM3 Red Blood Count 3.84M/MM3 Hemoglobin 12.1GM/DL Hematocrit 37.3% Mean Corpuscular Volume 97.1UM3 Mean Corpuscular Hemoglobin 31.5UUG Mean Corpuscular Hemoglobin Concent 32.4GM/DL RDW Standard Deviation 47.3FL Platelet Count 328T/MM3 Mean Platelet Volume 9.3UM3 Immature Granulocyte % (Auto) 0.1% Neutrophils (%) (Auto) 67.6% Lymphocytes (%) (Auto) 24.0% Monocytes (%) (Auto) 6.4% Eosinophils (%) (Auto) 1.4% Basophils (%) (Auto) 0.5% Absolute Immature Granulocyte (auto 0.01T/MM3 Absolute Neutrophils (auto) 6.2T/MM3 Absolute Lymphocytes (auto) 2.2T/MM3 Absolute Monocytes (auto) 0.6T/MM3 Absolute Eosinophils (auto) 0.1T/MM3 Absolute Basophils (auto) 0.1T/MM3 Urine Collection Type Cleancatch-midstream Urine Color Yellow Urine Turbidity Clear Urine pH 5.5 Urine Specific Orange 1.020 Urine Protein Trace Urine Glucose (UA) Negative Urine Ketones Negative Urine Blood Negative Urine Nitrite Negative Urine Bilirubin Negative Urine Urobilinogen 0.2EU/DL Urine Leukocyte Esterase Trace Urinalysis Comment Microscopic not ind. Medications Current ED Medications Sodium Chloride (Normal Saline IV) 500 ml @ 0 mls/hr Q0M ONCE IV Last administered on 10/04/16 18:52; Start 10/04/16 at 18:36; Stop 10/04/16 at 18:38; Status DC Prochlorperazine Edisylate (Compazine) 10 mg O ONCE IV Last administered on 18:54; Start 10/04/16 at 18:45; Stop 10/04/16 at 18:46; Status DC Diphenhydramine HCl (Benadryl) 50 mg O ONCE IM ; Start 10/04/16 at 18:45; Stop 10/04/16 at 18:46; Status DC Diphenhydramine HCl (Benadryl) 50 mg O ONCE IV Last administered on 10/04/16 19:04; Start 10/04/16 at 19:15; Stop 10/04/16 at 19:16; Status DC Fosfomycin Tromethamine (Monurol) 3 g O ONCE PO Last administered on 10/04/16 21:05; Start 10/04/16 at 20:30; Stop 10/04/16 at 20:31; Status DC Progress Progress Pt with mild dehydration and possibly developing UTI. Will give fosfamycin, has had IVF, and will d/c to home. Discussed dx, prognosis, and tx plan with pt and who voiced understanding. Pt is no longer nauseated after compazine/ benadryl. F/u with PCM. Xray Xray : Xray: KUB Upright Interpretation: Normal, Interpreted by SILVIO Colin DO Oct 04, 2016 18:42
[2016-10-04] MEDS ORDERED: PROCHLORPERAZINE 10mg/2ml INJECTION IV ONE (18:45)
[2016-10-04] MEDS ORDERED: DiphenhydrAMINE 50 MG/ML INJECTION IM ONE (18:45)
[2016-10-04 18:51] LABS: BASOPHILS # (AUTO) 0.1 T/MM3 (0-0.2); BASOPHILS % (AUTO) 0.5 % (0-2); EOSINOPHILS # (AUTO) 0.1 T/MM3 (0-0.5); EOSINOPHILS % (AUTO) 1.4 % (0-4); HCT - HEMATOCRIT 37.3 % (36-46); HGB - HEMOGLOBIN 12.1 GM/DL (12-16); IMMATURE GRANULOCYTE # (AUTO) 0.01 T/MM3 (0.00-0.03); IMMATURE GRANULOCYTE % (AUTO) 0.1 % (0.0-0.5); LYMPHOCYTES # (AUTO) 2.2 T/MM3 (1-4.8); MEAN CORPUSCULAR HGB 31.5 UUG (26-34); MEAN CORPUSCULAR HGB CONC(MCHC 32.4 GM/DL (31-37); MEAN CORPUSCULAR VOLUME 97.1 UM3 (80-100); MEAN PLATELET VOLUME 9.3 UM3 (9.4-12.4); MONOCYTES # (AUTO) 0.6 T/MM3 (0-0.8); MONOCYTES % (AUTO) 6.4 % (0-9.0); NEUTROPHILS #(AUTO)-ABSOLUTE 6.2 T/MM3 (1.8-7.7); NEUTROPHILS % (AUTO) 67.6 % (33-66); RED BLOOD COUNT 3.84 M/MM3 (4.00-5.20); WBC - WHITE BLOOD COUNT 9.2 T/MM3 (4.5-11.0)
[2016-10-04 19:03] LABS: ANION GAP 17 MEQ/L (5-15); BUN/CREATININE RATIO 36 RATIO (6-26); CALCIUM 9.8 MG/DL (8.4-10.2); CHLORIDE 116 MEQ/L (98-107); CO2 - CARBON DIOXIDE 13 MEQ/L (22-30); CREATININE 0.8 MG/DL (0.7-1.2); GLOMERULAR FILTRATION RATE 71; GLUCOSE 148 MG/DL (65-110); LIPASE 134 U/L (23-300); POTASSIUM 4.1 MEQ/L (3.6-5); SODIUM 146 MEQ/L (134-144)
[2016-10-04 19:10] LABS: PHOSPHORUS 3.3 MG/DL (2.5-4.5)
[2016-10-04] MEDS ORDERED: DiphenhydrAMINE 50 MG/ML INJECTION IV ONE (19:15)
--- NOTE | 2016-10-04 19:25 | NUR ---
XRY PT TO XRY [facility].
--- OUTSIDE RECORDS SUMMARY | 2016-10-04 19:58 | XMS REPORT | Continuity of Care Document ---
Author Author [facility] Organization [facility] Address Unknown Phone Unavailable Support Name Relationship Address Phone ALFIEKIMMY Caregiver [address] [place] [address] ANDREW COLLINS MD Caregiver [address] [place] [phone] JOSH MONREAL MD Caregiver [address] [place] [address] DHIRAJ CARPIO Next Of Kin [address] [place], [place] [id number] Insurance Providers Payer Name Policy Number Subscriber Name Relationship Medicare [id number] Gila Carpio 18 Self [facility] [id number] Gila Carpio 18 Self Advance Directives Directive [...] Up Appointments: Dr Collins in 1 week [phone] Patient Instructions: Hold asa for 1 week [...] F (96.8 - 99.1) Temperature (Calculated Celsius) 36.01534 degrees C (36.0 - 37.3) Temperature Source [...] 02, 2014 12:29pm LAB TEST FORM REQUEST [id number] - Lipase July 15, 2014 2:24pm 55 [...] 21, 2014 4:55am 6.3 % N 0-9.0 [id number] Natriuretic Peptide July 02, 2014 10:15am 527 [...] Has specimen been collected/obtained? Y Urine Specific Tama July 15, 2014 5:09pm 1.025 - Has [...] 2014 5:25pm Name: GILA CARPIO Unit #: [id number] : 1945 Sex: F Loc / Svc: MED DOS: 07/15/14 Signed Report #: [id number] DIAGNOSTIC IMAGING REPORT TYPE OF EXAM: US [...] MD Encounters Encounter Location Date/Time Discharged Inpatient [facility] 07/16/14 11:56am Discharged Inpatient [facility] 07/05/14 9:55am Registered Clinic [facility] 07/02/14 10:30am Registered Clinic [facility] 05/11/14 10:24am Recent Diagnosis Pneumonia COPD (chronic obstructive pulmonary disease) Hypokalemia Diarrhea Nausea Pneumonia Diarrhea Diarrhea C. difficile colitis CADY (obstructive sleep apnea) Leukocytosis Suspected DVT (deep vein thrombosis)
--- OUTSIDE RECORDS SUMMARY | 2016-10-04 20:00 | XMS REPORT | Continuity of Care Document ---
Author Author [facility] Organization [facility] Address Unknown Phone Unavailable Allergies Medications Problems Procedures Results Encounters ACCT No. Visit Date/Time Discharge Status Pt. Type Provider Facility Loc./Unit Complaint [id number] 08/31/2013 13:33:00 08/31/2013 23 :59:59 CLS Outpatient
[2016-10-04 20:02] LABS: BLOOD, URINE NEGATIVE (NEGATIVE); COLOR,URINE YELLOW (YELLOW); LEUKOCYTE ESTERASE ,URINE TRACE (NEGATIVE); NITRITE,URINE NEGATIVE (NEGATIVE); UROBILINOGEN,URINE 0.2 EU/DL (NORMAL)
--- OUTSIDE RECORDS SUMMARY | 2016-10-04 20:02 | XMS REPORT | Continuity of Care Document ---
Author Author [facility] Organization [facility] Address Unknown Phone Unavailable Support Name Relationship Address Phone KATE BAUTISTA MD Caregiver [address] [place] [address] [place] [phone] GA ABRAMS MD Caregiver [address] [place] [address] [place] [address] ARAM[place] [address] Unavailable ANDREW VALERO MD Caregiver [address] [place] [address] [phone] DHIRAJ CARPIO Next Of Kin [address] [place] [address] [phone] Insurance Providers Payer Name Policy Number Subscriber Name Relationship Medicare [id number] Gila Carpio 18 Self Blue Cross [facility] [id number] Gila aCrpio 16 Self Advance Directives Directive Response Recorded [...] F (96.8 - 99.1) Temperature (Calculated Celsius) 36.34620 degrees C (36.0 - 37.3) Temperature Source [...] 02, 2014 12:29pm LAB TEST FORM REQUEST [id number] - Lymphocytes # (Auto) July 06, 2014 [...] 06, 2014 5:09am 2.6 % N 0-9.0 BL-Bef-C-Type Natriuretic Peptide July 02, 2014 10:15am 527 [...] Has specimen been collected/obtained? Y Urine Specific [place] July 05, 2014 12:00am 1.010 L - [...] 5 DAYS Name: GILA CARPIO Unit #: [id number] : 1945 Sex: F Loc / Svc: MED DOS: 07/05/14 Signed Report #: [id number] DIAGNOSTIC IMAGING REPORT TYPE OF EXAM: CHEST, [...] 07/02/14 Encounters Encounter Location Date/Time Discharged Inpatient [facility] 07/05/14 9:55am Registered Clinic [facility] 07/02/14 10:30am Registered [facility] 05/11/14 10:24am Recent Diagnosis Metabolic acidosis Pneumonia Sepsis Hyperosmolality and hypernatremia Hypokalemia CAD of autologous bypass graft HTN (hypertension) Hypercholesteremia COPD (chronic obstructive pulmonary disease) GERD (gastroesophageal reflux disease) Depression Headache Postsurgical ovarian failure Tachycardia Sepsis Nausea Hyperosmolality and hypernatremia Hypokalemia
--- NOTE | 2016-10-04 20:03 | NUR ---
STATUS PT RESTING, R SIDE LYING. AT BEDSIDE. PT STATES HER NAUSEA IS IMPROVED.
[2016-10-04] MEDS ORDERED: FOSFOMYCIN 3 GRAM PACKET PO ONE (20:30)
[2016-10-04 21:07] VITALS: BP 167/84; PULSE 91; RESP 16; TEMP 97.3; O2SAT 92
--- NOTE | 2016-10-04 21:07 | NUR ---
DISMISS PT TAKEN TO PRIVATE VEHICLE VIA WC BY THIS RN.
--- NOTE | 2016-10-05 08:13 | DI ---
Indication: ITS.REASON: N/V PROCEDURE: KUB W/UPRIGHT: Encounter: Initial Comparison: None Findings: The visualized lung bases are clear. There is no free air on the upright view. The bowel gas pattern is nonobstructive and nonspecific. Gas is seen in nondilated small and large bowel to the level of the rectum. Moderate stool is seen throughout the colon. The bony structures are grossly unremarkable. Impression: Nonobstructive nonspecific bowel gas pattern. .
[2016-10-07] MEDS ORDERED: ACET1TAB12 PO (13:25)
== END 2016-10-04 21:07 | disposition home or self-care (01) ==
LOC: ED 18:05
DX: N30.00 Acute cystitis without hematuria (principal); E86.0 Dehydration
CPT/HCPCS: 74020; 80048; 81003; 83690; 83735; 84100; 85025; 96361; 96374; 96375; 99284; A9270; J0780; J1200; J7030

== ENCOUNTER 2016-10-08 09:01 | Inpatient (IN) | payer MEDICARE, BC ==
[2016-10-08] VITALS (16 sets, daily range): BP systolic 81–150; BP diastolic 42–71; PULSE 64–88; RESP 16–20; TEMP 97.4–98.3; O2SAT 90–98; Ht 162.6 cm; Wt 95.0 kg
[~2016-10-08] VITALS: Ht 162.6 cm; Wt 95.0 kg
[~2016-10-08 09:01] MED LIST changes: +ACET-62 PO; +ACET1TAB12 PO; +ALBU8.5H INH; +GUAI-1123 PO; -GUAI-782 PO; -HYDR-4246 PO; +IBUP-1724 PO; +LIDOCAINE 1% (10mg/ml) 2ml SDV INJ ONE; -LORA0.5T2 PO; +LOSA100T2 PO; -LOSA50TA52 PO; +LR 1,000 ML IV SCH; +OMEP-122 PO; -OMEP20CA10 PO; +QUER1POW PO; -VANC1PLA9 IV
--- OUTSIDE RECORDS SUMMARY | 2016-10-08 09:06 | XMS REPORT | Continuity of Care Document ---
Author Author [facility] Organization [facility] Address Unknown Phone Unavailable Support Name Relationship Address Phone ALFIEKIMMY Caregiver [address] [place] [address] ANDREW COLLINS MD Caregiver [address] [place], [place] [phone] JOSH MONREAL MD Caregiver [address] [facility] [address] DHIRAJ CARPIO Next Of Kin [address] [place], [place] [phone] Insurance Providers Payer Name Policy Number Subscriber Name Relationship Medicare [id number] Gila Carpio 16 Self [facility] [id number] Gila Carpio 16 Self Advance Directives Directive [...] Up Appointments: Dr Collins in 1 week [phone] Patient Instructions: Hold asa for 1 week [...] F (96.8 - 99.1) Temperature (Calculated Celsius) 36.12205 degrees C (36.0 - 37.3) Temperature Source [...] 02, 2014 12:29pm LAB TEST FORM REQUEST [id number] - Lipase July 15, 2014 2:24pm 55 [...] 21, 2014 4:55am 6.3 % N 0-9.0 ON-Hfy-T-Type Natriuretic Peptide July 02, 2014 10:15am 527 [...] Has specimen been collected/obtained? Y Urine Specific [place] July 15, 2014 5:09pm 1.025 - Has [...] 2014 5:25pm Name: GILA CARPIO Unit #: [id number] : 1945 Sex: F Loc / Svc: MED DOS: 07/15/14 Signed Report #: [id number] DIAGNOSTIC IMAGING REPORT TYPE OF EXAM: US [...] MD Encounters Encounter Location Date/Time Discharged Inpatient [facility] 07/16/14 11:56am Discharged Inpatient [facility] 07/05/14 9:55am Registered Clinic [facility] 07/02/14 10:30am Registered Clinic [facility] 05/11/14 10:24am Recent Diagnosis Pneumonia COPD (chronic obstructive pulmonary disease) Hypokalemia Diarrhea Nausea Pneumonia Diarrhea Diarrhea C. difficile colitis CADY (obstructive sleep apnea) Leukocytosis Suspected DVT (deep vein thrombosis)
--- OUTSIDE RECORDS SUMMARY | 2016-10-08 09:07 | XMS REPORT | Continuity of Care Document ---
Author Author [facility] Organization [facility] Address Unknown Phone Unavailable Support Name Relationship Address Phone OCTOBER, SILVIO Owen DO Caregiver [address] [place] [address] Unavailable ROGER BOBBY DO Caregiver Unknown Unavailable JORJE DHIRAJ Next Of Kin [address] [place] [address] Insurance Providers Guarantor Gila Carpio Address [address] [place] [address] Email [email or web address] Payer [facility] Policy Number [id number] Subscriber's Name Kayleigh Carpiojorie Ye Relationship 18 Self Group Number [id number] Group Name PLAN Payer Medicare Policy Number [id number] Subscriber's Name Kayleigh Carpiojorie Ye Relationship 18 Self Advance Directives Directive Response Recorded Date/Time Advanced Directives Type None 10/04/16 6:05pm Chief Complaint and Reason for Visit Chief Complaint Nausea,Vomiting,Diarrhea Reason for Visit Mild dehydration [id number] Nausea Problems Active Problems Medical Problem Onset Date [...] acidosis Unknown Acute Metabolic acidosis Unknown Resolved Mild dehydration Unknown Acute Nausea Unknown Acute Nausea Unknown Acute Nausea [...] vein thrombosis) 07/20/2014 Acute Tachycardia Unknown Acute UTI (urinary tract infection) Unknown Acute Surgical Problem Onset Date Status Hx of appendectomy Unknown Resolved Status post partial removal of lung Unknown Resolved Past Problems Medical Problem Onset Date COPD exacerbation Unknown Medications Current Home Medications Medication Dose Units Route Directions Days Qty Instructions Start Date Acetaminophen 500 Mg Tablet 2 Tab Oral Every 4 Hours as needed for Pain 10/04/16 Albuterol Sulfate (Proair Hfa 90 Mcg/Actuation) 8.5 Gm Hfa.aer.ad 1 Puff Inhalation Every 4 Hours as needed for Shortness Of Air 10/04/16 Amlodipine Besylate 5 Mg Tablet 5 Mg Oral Daily 05/26/16 Aspirin 81 Mg Tab.chew 81 Mg Oral Daily 08/26/15 Atorvastatin Calcium 40 Mg Tablet 40 Mg Oral Bedtime 06/10/16 Furosemide 20 Mg Tablet 20 Mg Oral Daily as needed for Prn Orders 05/26/16 Guaifenesin/Dextromethorphan (Coricidin Hbp Softgel) 1 Each Capsule 1 Cap Oral As Needed 10/04/16 Ibuprofen 200 Mg Tablet 2 Tab Oral Every 4 Hours as needed for Pain 10/04/16 Losartan Potassium (Cozaar) 100 Mg Tablet 100 Mg Oral Daily 10/04 Metoprolol Tartrate 25 Mg Tablet 25 Mg Oral Twice A Day 06/10/16 Naproxen Sodium (Naproxen 220MG) 220 Mg Tablet 440 Mg Oral Twice Daily With Meals as needed for Pain 10/04/16 Omeprazole 20 Mg Tablet.dr 20 Mg Oral Before Breakfast 10/04/16 Quercetin Dihydrate 1 Gm Powder 1 Dose Oral 5 Times Daily Salmeterol Xinafoate/Fluticasone (Advair 500-50 Diskus) 1 Each Disk.w.dev 1 Disk Inhalation Twice A Day 10/10/09 Tizanidine Hcl 2 Mg Capsule 2 Mg Oral Four Times Daily as needed for Prn Orders 05/26/16 Past Home Medications Medication Directions Ordered Status [...] Onset Date Status Hx Substance Use No 10/04/2016 7:00pm Not Applicable Not Applicable Hx Alcohol Use N QUIT IN 198210/04/2016 7:00pm Not Applicable Not Applicable Has the pt used tobacco in the last 12 months No 06/28/2016 8:07am Not Applicable Not Applicable Quit (MM/YYYY) 11 years ago 08/27/2015 11:59am Not Applicable Not Applicable Tobacco Usage none 08/27/2015 11:31am Not Applicable Not Applicable Query Response Start Date Stop Date Smoking Status Former smoker Hospital Discharge Instructions No hospital discharge instructions. Plan of Care Discharge Date 10/04/16 9:07pm Disposition 01 DISCHARGED HOME, SELF-CARE Condition at Discharge Improved Instructions/Education Provided Dehydration (ED) Prescriptions See Medication Section Referrals ROGER BOBBY DO Order Date: 1 Week Note: Additional Instructions/Education We have evaluated you for causes of infection and nausea/vomiting. You were mildly dehydrated and might have the start of a urinary tract infection. Drink plenty of fluids and follow up with your doctor in the next week. Care Plan and Goals Physician Care Plan Problem: Mild dehydration Goal: Follow up with primary care provider Instructions: Take medications and follow care plan as discussed/written Functional Status No functional status results. Allergies, Adverse Reactions, Alerts Allergen Type Severity Reaction Status Last Updated amoxicillin trihydrate Allergy Unknown Active 10/04/16 Sulfa (Sulfonamide Antibiotics) Allergy Unknown Active 10/04/16 potassium clavulanate Allergy Unknown Active 10/04/16 Immunizations Query Response on File Recorded Date/Time [...] 07/05/14 11:39am Influenza Vaccine Hx APR 2016 10/04/16 7:00pm Vital Signs Acute Vital Signs Vital Response Date/Time Temperature (Fahrenheit) 97.3 deg F (96.8 - 99.1) 10/04/2016 9:07pm Temperature (Calculated Celsius) 36.91396 degrees C (36.0 - 37.3) 10/04/2016 9:07pm Pulse Rate (adult) 91 bpm (60 - 100) 10/04/2016 9:07pm Respiratory Rate 16 breaths/min (10 - 20) 10/04/2016 9:07pm O2 Sat by Pulse Oximetry 92 % (90 - 100) 10/04/2016 9:07pm Oxygen Delivery Method Room Air 07/10/2016 9:29am Blood Pressure 167/84 mm Hg 10/04/2016 9:07pm Blood Pressure Source Automatic Cuff 07/10/2016 9:29am Height (Feet) 5 feet 10/04/2016 6:05pm Height (Inches) 4.00 inches 10/04/2016 6:05pm Weight (Kilograms) 97.400 kg 10/04/2016 6:05pm Body Mass Index (BMI) 36.0 10/04/2016 6:05pm Results Laboratory Results Test Name Result Units Flags Reference Collection Date/Time Result Date/ Time Comments Neutrophils % (Manual) 58.0 % 33-66 07/06/2016 [...] Comment NORMAL 07/06/2016 7:48am 07/06/2016 8: 11am C-Reactive Protein < 5.0 MG/L 0-9 07/06/2016 7:48am 07/06/2016 8:15am Vancomycin Level Trough 8.66 UG/ML L 15-20 07/06/2016 7:48am 07/06/2016 8:15am White Blood Count 9.2 T/MM3 4.5-11.0 10/04/2016 6:46pm 10/04/2016 6: 58pm Red Blood Count 3.84 M/MM3 L 4.00-5.20 10/04/2016 6:46pm 10/04/2016 6: 58pm Hemoglobin 12.1 GM/DL 12-16 10/04/2016 6:46pm 10/04/2016 6:58pm Hematocrit 37.3 % 36-46 10/04/2016 6:46pm 10/04/2016 6:58pm Mean Corpuscular Volume 97.1 UM3 80-100 10/04/2016 6:46pm 10/04/2016 6: 58pm Mean Corpuscular Hemoglobin 31.5 UUG 26-34 10/04/2016 6:46pm 2016 6:58pm Mean Corpuscular Hemoglobin Concent 32.4 GM/DL 31-37 10/04/2016 6:46pm 10/04/2016 6:58pm RDW Standard Deviation 47.3 FL 36.9-50.2 10/04/2016 6:46pm 10/04/2016 6 :58pm Platelet Count 328 T/MM3 130-400 10/04/2016 6:46pm 10/04/2016 6:58pm Mean Platelet Volume 9.3 UM3 L 9.4-12.4 10/04/2016 6:46pm 10/04/2016 6: 58pm Neutrophils (%) (Auto) 67.6 % H 33-66 10/04/2016 6:46pm 10/04/2016 6: 58pm Lymphocytes (%) (Auto) 24.0 % 23-45 10/04/2016 6:46pm 10/04/2016 6: 58pm Monocytes (%) (Auto) 6.4 % 0-9.0 10/04/2016 6:46pm 10/04/2016 6:58pm Eosinophils (%) (Auto) 1.4 % 0-4 10/04/2016 6:46pm 10/04/2016 6:58pm Basophils (%) (Auto) 0.5 % 0-2 10/04/2016 6:46pm 10/04/2016 6:58pm Immature Granulocyte % (Auto) 0.1 % 0.0-0.5 10/04/2016 6:46pm 2016 6:58pm Absolute Neutrophils (auto) 6.2 T/MM3 1.8-7.7 10/04/2016 6:46pm 2016 6:58pm Absolute Lymphocytes (auto) 2.2 T/MM3 1-4.8 10/04/2016 6:46pm 2016 6:58pm Absolute Monocytes (auto) 0.6 T/MM3 0-0.8 10/04/2016 6:46pm 10/04/2016 6:58pm Absolute Eosinophils (auto) 0.1 T/MM3 0-0.5 10/04/2016 6:46pm 2016 6:58pm Absolute Basophils (auto) 0.1 T/MM3 0-0.2 10/04/2016 6:46pm 10/04/2016 6:58pm Absolute Immature Granulocyte (auto 0.01 T/MM3 0.00-0.03 10/04/2016 6: 46pm 10/04/2016 6:58pm Icterus Index < 2 0-7 10/04/2016 5:45pm 10/04/2016 7:03pm Chemistry Specimen Hemolysis < 15 0-25 10/04/2016 5:45pm 10/04/2016 7 :03pm 0-25: Specimen Exhibited No Hemolysis. Turbidity < 20 0-20 10/04/2016 5:45pm 10/04/2016 7:03pm Sodium Level 146 MEQ/L H 134-144 10/04/2016 5:45pm 10/04/2016 7:03pm Potassium Level 4.1 MEQ/L 3.6-5 10/04/2016 5:45pm 10/04/2016 7:03pm Chloride Level 116 MEQ/L H 98-107 10/04/2016 5:45pm 10/04/2016 7:03pm Carbon Dioxide Level 13 MEQ/L L 22-30 10/04/2016 5:45pm 10/04/2016 7: 03pm Anion Gap 17 MEQ/L H 5-15 10/04/2016 5:45pm 10/04/2016 7:03pm Blood Urea Nitrogen 29.0 MG/DL H 7-17 10/04/2016 5:45pm 10/04/2016 7: 03pm Creatinine 0.8 MG/DL 0.7-1.2 10/04/2016 5:45pm 10/04/2016 7:03pm BUN/Creatinine Ratio 36 RATIO H 6-26 10/04/2016 5:45pm 10/04/2016 7: 03pm Glomerular Filtration Rate Calc 71 10/04/2016 5:45pm 10/04/2016 7: 03pm Glucose Level 148 MG/DL H 65-110 10/04/2016 5:45pm 10/04/2016 7:03pm Calculated Osmolality 290 MOSM/KG H 261-280 10/04/2016 5:45pm 2016 7:03pm Calcium Level 9.8 MG/DL 8.4-10.2 10/04/2016 5:45pm 10/04/2016 7:03pm Phosphorus Level 3.3 MG/DL 2.5-4.5 10/04/2016 5:45pm 10/04/2016 7:10pm Lipase 134 U/L 23-300 10/04/2016 5:45pm 10/04/2016 7:03pm Magnesium Level 2.1 MG/DL 1.6-2.3 10/04/2016 5:45pm 10/04/2016 7:06pm Urine Collection Type [place]-MIDSTREAM 10/04/2016 8:00pm 2016 8:02pm Urine Color YELLOW YELLOW 10/04/2016 8:00pm 10/04/2016 8:02pm Urine Turbidity CLEAR CLEAR 10/04/2016 8:00pm 10/04/2016 8:02pm Urine Specific [place] 1.020 1.015-1.025 10/04/2016 8:00pm 2016 8:02pm Urine pH 5.5 5.0-8.0 10/04/2016 8:00pm 10/04/2016 8:02pm Urine Leukocyte Esterase TRACE A NEGATIVE 10/04/2016 8:00pm 2016 8:02pm Urine Nitrite NEGATIVE NEGATIVE 10/04/2016 8:00pm 10/04/2016 8:02pm Urine Protein TRACE A NEGATIVE 10/04/2016 8:00pm 10/04/2016 8:02pm Urine Glucose (UA) NEGATIVE NEGATIVE 10/04/2016 8:00pm 10/04/2016 8: 02pm Urine Ketones NEGATIVE NEGATIVE 10/04/2016 8:00pm 10/04/2016 8:02pm Urine Urobilinogen 0.2 EU/DL NORMAL 10/04/2016 8:00pm 10/04/2016 8: 02pm Urine Bilirubin NEGATIVE NEGATIVE 10/04/2016 8:00pm 10/04/2016 8: 02pm Urine Blood NEGATIVE NEGATIVE 10/04/2016 8:00pm 10/04/2016 8:02pm Urinalysis Comment MICROSCOPIC NOT IND. 10/04/2016 8:00pm 2016 8:02pm Procedures Procedure Status Date Provider(s) Ther/proph/diag iv inf init Completed 06/28/16570974"INJECTION, VANCOMYCIN HCL, 500 MG" Completed 06/28/16105867"INFUSION, NORMAL SALINE SOLUTION , 250 CC" Completed 06/28/16 Collect blood from picc Completed 06/28/16 SOFÍA VENTURA MD Metabolic panel total ca Completed 06/28/16 Bl smear w/diff wbc count Completed 06/28/16 Complete cbc automated Completed 06/28/16 Ther/proph/diag iv inf init Completed 06/28/16 [id number]"INJECTION, VANCOMYCIN HCL, 500 MG" Completed 06/28/16349282"INFUSION, NORMAL SALINE SOLUTION , 250 CC" Completed 06/28/16 Collect blood from picc Completed 06/28/16 SOFÍA VENTURA MD Assay of vancomycin Completed 06/28/16 Ther/proph/diag iv inf init Completed 06/28/16 050393"INJECTION, VANCOMYCIN HCL, 500 MG" Completed 06/28/16246135"INFUSION, NORMAL SALINE SOLUTION , 250 CC" Completed 06/28/16 Ther/proph/diag iv inf init Completed 06/28/16 359350"INJECTION, VANCOMYCIN HCL, 500 MG" Completed 06/28/16534320"INFUSION, NORMAL SALINE SOLUTION , 250 CC" Completed 06/28/16 Ther/proph/diag iv inf init Completed 06/28/16 710716"INJECTION, VANCOMYCIN HCL, 500 MG" Completed 06/28/16 [id number]"INFUSION, NORMAL SALINE SOLUTION , 250 CC" Completed 06/28/16 Ther/proph/diag iv inf init Completed 06/28/16 510530"INJECTION, VANCOMYCIN HCL, 500 MG" Completed 06/28/16 [id number]"INFUSION, NORMAL SALINE SOLUTION , 250 CC" Completed 06/28/16 Collect blood from picc Completed 06/28/16 SOFÍA VENTURA MD Metabolic panel total ca Completed 06/28/16 Assay of vancomycin Completed 06/28/16 Bl smear w/diff wbc count Completed 06/28/16 Complete cbc automated Completed 06/28/16 C-reactive protein Completed 06/28/16 Ther/proph/diag iv inf init Completed 06/28/16 [id number]"INJECTION, VANCOMYCIN HCL, 500 MG" Completed 06/28/16812822"INFUSION, NORMAL SALINE SOLUTION , 250 CC" Completed 06/28/16 Ther/proph/diag iv inf init Completed 06/28/16 Ther/proph/diag iv inf addon Completed 06/28/16 181930"INJECTION, VANCOMYCIN HCL, 500 MG" Completed 06/28/16 Ther/proph/diag iv inf init Completed 06/28/16 Ther/proph/diag iv inf addon Completed 06/28/16 [id number]"INJECTION, VANCOMYCIN HCL, 500 MG" Completed 06/28/16 Ther/proph/diag iv inf init Completed 06/28/16 Ther/proph/diag iv inf addon Completed 06/28/16 [id number] ITEM OR SERVICE Completed 06/28/16 [id number]"INJECTION, VANCOMYCIN HCL, 500 MG" Completed 06/28/16 Chest x-ray 2vw frontal&latl Completed 07/08/16 Encounters Encounter Location Arrival/Admit Date Discharge/Depart Date Attending Provider Departed Emergency Room [facility] 10/04/16 6:05pm 10/04/16 9: 07pm SILVIO COLUNGA DO Registered Clinic [facility] 07/08/16 9:01am SOFÍA VENTURA MD Discharged Recurring [facility] 06/28/16 7:53am 07/10/16 10:37am SOFÍA VENTURA MD Recent Diagnosis
--- OUTSIDE RECORDS SUMMARY | 2016-10-08 09:08 | XMS REPORT | Continuity of Care Document ---
Author Author [facility] Organization [facility] Address Unknown Phone Unavailable Allergies Medications Problems Procedures Results Encounters ACCT No. Visit Date/Time Discharge Status Pt. Type Provider Facility Loc./Unit Complaint [id number] 08/31/2013 13:33:00 08/31/2013 23 :59:59 CLS Outpatient
--- OUTSIDE RECORDS SUMMARY | 2016-10-08 09:09 | XMS REPORT | Continuity of Care Document ---
Author Author [facility] Organization [facility] Address Unknown Phone Unavailable Support Name Relationship Address Phone KATE BAUTISTA MD Caregiver [address] [place] [address] [place] [phone] GA ABRAMS MD Caregiver [address] [place] [address] [place] [address] [place] [address] Unavailable ANDREW VALERO MD Caregiver [address] [place] [address] [phone] DHIRAJ CARPIO Next Of Kin [address] [place] [address] [id number] Insurance Providers Payer Name Policy Number Subscriber Name Relationship Medicare [id number] Gila Carpio 18 Self Blue Cross [facility] [id number] Gila Carpio 16 Self Advance Directives Directive [...] F (96.8 - 99.1) Temperature (Calculated Celsius) 36.69090 degrees C (36.0 - 37.3) Temperature Source [...] 02, 2014 12:29pm LAB TEST FORM REQUEST [id number] - Lymphocytes # (Auto) July 06, 2014 [...] 06, 2014 5:09am 2.6 % N 0-9.0 JO-Mov-J-Type Natriuretic Peptide July 02, 2014 10:15am 527 [...] Has specimen been collected/obtained? Y Urine Specific [place] July 05, 2014 12:00am 1.010 L - [...] 5 DAYS Name: GILA CARPIO Unit #: [id number] : 1945 Sex: F Loc / Svc: MED DOS: 07/05/14 Signed Report #: [id number] DIAGNOSTIC IMAGING REPORT TYPE OF EXAM: CHEST, [...] 07/02/14 Encounters Encounter Location Date/Time Discharged Inpatient [facility] 07/05/14 9:55am Registered Clinic [facility] 07/02/14 10:30am Registered [facility] 05/11/14 10:24am Recent Diagnosis Metabolic acidosis Pneumonia Sepsis Hyperosmolality and hypernatremia Hypokalemia CAD of autologous bypass graft HTN (hypertension) Hypercholesteremia COPD (chronic obstructive pulmonary disease) GERD (gastroesophageal reflux disease) Depression Headache Postsurgical ovarian failure Tachycardia Sepsis Nausea Hyperosmolality and hypernatremia Hypokalemia
--- NOTE | 2016-10-08 11:48 | ANESPREOP ---
Anesthesia Record Date and Time DATE: 10/08/16 TIME: 11:45 Pre-Op Diagnosis emesis nausea melena Proposed Surgical Procedure EGD Allergies: Coded Allergies: Sulfa (Sulfonamide Antibiotics) (Verified Allergy, Unknown, 10/08/16) amoxicillin trihydrate (Verified Allergy, Unknown, 10/08/16) potassium clavulanate (Verified Allergy, Unknown, 10/08/16) Ht/Wt/BMI Height: 5 ' 4.00 " Weight: 93.100 kg BMI: 35.2 kg/m2 Vital Signs Date Time Temp Pulse Resp B/P Pulse Ox O2 Delivery O2 Flow Rate FiO2 10/08/16 10:08 97.8 78 16 100/58 90 Room Air Medications Inpatient Medications Current Medications Medications (Trade) Dose Ordered Sig/Cipriano Start Time Stop Time Status Last Admin Dose Admin Lactated Ringer's (Lactated Ringers) 1,000 ml @ 30 mls/hr Q24H 10/08/16 07:00 10/08/16 10:32 30 MLS/HR Acetaminophen (Acetaminophen) 500 Mg Tablet, 2 TAB PO Q4H PRN for PAIN, ( Reported) Last Taken: on Unknown Date & Time Acetaminophen with Codeine (Tylenol with Codeine #3 Tablet) 300-30 Tablet, 1 TAB PO Q4H PRN for PAIN, (Reported) Take 1 tablet, by mouth, every 4 hours as needed for Pain Last Taken: on 10/01/16 0800 Albuterol Sulfate (Proair HFA 90 mcg/actuation) 8.5 Gm Hfa.aer.ad, 1 PUFF INH Q4H PRN for SHORTNESS OF AIR, (Reported) Last Taken: on Unknown Date & Time Amlodipine Besylate (Amlodipine Besylate ) 5 Mg Tablet, 5 MG PO DAILY, (Reported) Last Taken: on 10/07/16 1400 Aspirin (Aspirin) 81 Mg Tab.chew, 81 MG PO DAILY, (Reported) Last Taken: on 10/02/16 Atorvastatin Calcium (Atorvastatin Calcium) 40 Mg Tablet, 40 MG PO HS, (Reported) Last Taken: on 10/04/16 0800 Fluticasone/Salmeterol (Advair 500-50 Diskus) 1 Each Disk.w.dev, 1 DISK IH BID, (Reported) Last Taken: on 10/08/16 0830 Furosemide (Furosemide) 20 Mg Tablet, 20 MG PO DAILY PRN for PRN ORDERS, (Reported) Last Taken: on Unknown Date & Time Guaifenesin/Dextromethorphan (Coricidin Hbp Softgel) 1 Each Capsule, 1 CAP PO PRN, (Reported) Last Taken: on 10/02/16 0800 Ibuprofen (Ibuprofen) 200 Mg Tablet, 2 TAB PO Q4H PRN for PAIN, (Reported) Last Taken: on 10/02/16 1400 Losartan Potassium (Cozaar) 100 Mg Tablet, 100 MG PO DAILY, (Reported) Last Taken: on 10/07/16 1400 Metoprolol Tartrate (Metoprolol Tartrate) 25 Mg Tablet, 25 MG PO BID, (Reported) Last Taken: on 10/07/16 1400 Omeprazole (Omeprazole) 20 Mg Tablet.dr, 20 MG PO ACB, (Reported) Last Taken: on 10/08/16 0800 Quercetin Dihydrate (Quercetin Dihydrate) 1 Gm Powder, 1 DOSE PO 5XD, (Reported) Last Taken: on 10/02/16 08 Tizanidine HCl (Tizanidine HCl) 2 Mg Capsule, 2 MG PO QID PRN for PRN ORDERS, (Reported) Last Taken: on 10/08/16 0800 Currently on Beta Nilda: No Medical/Surgical History Anesthesia PMH: Reports: *Dyspnea, *Hypertension, Arthritis (BURCITIS L HIP & THIGH), Asthma (PER H&P), COPD, Obesity, Pneumonia (HX OF MAY), Reflux, Sleep Apnea, Denies: *Angina, *Diabetes, *[place] (DOES NOT THINK SO BUT HAS A STENT) , Anesthesia Reactions, Blood Transfusion Reac, CHF, CVA/Stroke/TIA, Cancer, Clotting Problems, Deep Vein Thrombosis, Glaucoma, Hepatitis, Hiatal Hernia, Malignant Hyperthermia, Pacemaker, Renal Disease, Seizures, Thyroid Disease Smoking Status: Former smoker # of Packs per Day: 2.5 # of Years: 45 Use Chewing Tobacco?: No Second Hand Exposure: No Quit Date: Jun 28, 2003 Substance Use Type: does not use Substance last used: unknown Alcohol Intake: none Last Drink: unknown HX of Last Menstrual Period: HYST Past Surgical History Orthopedic Surgeries: No Abdominal Surgeries: Yes - HYSTERECTOMY ,APPY Genitourinary Surgeries: No Cardiac Surgeries: Yes - STENT 1993 Endocrine Surgeries: No Reproductive Surgeries: Yes - D&C'S,HYST Neurological Surgeries: No Ear Surgeries: No Nose Surgeries: No Throat Surgeries: Yes - TONSILS Other Surgeries: Yes - REMOVAL OF BENIGN TUMOR FROM RIGHT LUNG,CATARACTS Anesthesia Adverse Reactions: FOUND other Family Hx of Anesthesia Advers: none Hx of Motion Sickness: Yes Pertinent Findings EKG Rhythm: Sinus Rhythm Physical Exam Respiratory: Bilat breath sounds equal, Lungs clear Cardiovascular: FOUND Regular rate, rhythm, FOUND No murmur Airway Assessment Mallampati Score: II TMD: 2 Fingerbreadths Neck Extension: Fair Overall Assessment: May Be Diff Mask Vent., May Be Diff Intubation ASA: 3 Plan Anesthesia Plan: TIVA Discussion Discussed risks/options/alternatives of anesthesia and questions answered. Patient consents. Nursing pain assessment noted. Attestation Statement Prior to the delivery of any anesthetic medication, I examined the patient, developed the plan, obtained the patient's consent and discussed the risk and benefits of the procedure with the patient/guardian. CHANDNI VILLATORO CRNA Oct 08, 2016 11:48
[2016-10-08] MEDS ORDERED: LIDOCAINE VISCOUS 2% Oral Soln 15ml UD ONE (12:14)
[2016-10-08] MEDS ORDERED: PROPOFOL 500mg 50 ML IV ONE (12:14)
[2016-10-08] MEDS ORDERED: ONDANSETRON 4mg/2ml INJECTION ONE (12:14)
--- NOTE | 2016-10-08 12:47 | ANESPO ---
Post-Op Note Date 10/08/16 Time: 12:46 Status Vital Signs Date Time Temp Pulse Resp B/P Pulse Ox O2 Delivery O2 Flow Rate FiO2 10/08/16 10:08 97.8 78 16 100/58 90 Room Air Respiratory Function: Airway patent, Regular respirations Cardiovascular Function: Regular pulse Mental Status: Alert/oriented Pain Level Intensity: 0 Hydration: Taking po fluids, IV infusing Complications during Recovery None apparent Post-Anesthesia Notes pt. destin. well Follow-Up Instructions Instructions Per Surgeon Additional Information none CHANDNI VILLATORO CRNA Oct 08, 2016 12:47
[2016-10-08] MEDS ORDERED: LR 1,000 ML IV SCH (13:17)
--- NOTE | 2016-10-08 13:29 | GSPOSTPN ---
Endoscopy Procedure Procedure Date: Oct 08, 2016 Surgeon: Alexandria ASA: 3 Procedure: EGD-duodenum biopsies, EGD for dominick assay, EGD- antrum biopsies Diagnosis Postop EGD Diagnosis Postop EGD Diagnosis: FOUND Other (pre-pyloric and duodenal ulcers) Complications Complications Estimated Blood Loss See Anesthesia Record. Vital Signs See Anesthesia and PACU record. FERNANDEZ STEPHEN OIL INSPECTOR Oct 08, 2016 13:29
[2016-10-08] MEDS ORDERED: LORAZEPAM 0.5 MG TABLET PO PRN (13:30)
[2016-10-08] MEDS ORDERED: ALBUTEROL INH.SOLN. 2.5mg/3ml (0.083%) Neb. AEROSOL PRN (13:30)
[2016-10-08] MEDS ORDERED: ACETAMINOPHEN 325 MG TABLET PO PRN (13:30)
[2016-10-08] MEDS ORDERED: FUROSEMIDE 20 MG TABLET PO PRN (13:30)
--- NOTE | 2016-10-08 13:43 | NUR ---
10-08-16 LEO TALKED WITH PATIENT TO BE ADMITTED TO HOSPITAL. TO HELP WITH HEALING OF THE 4 ULCERS FOUND IN HER EGD PROCEDURE TODAY. PATIENT HAD TROUBLE PREOP WITH NAUSEA/VOMITING AND KEEPING FOOD DOWN. PATIENT WAS ADMITTED TO ROOM 131 INPATIENT. PT WAS COMFORTABLE, NO PAIN, AND NO CONCERNS ABOUT BEING ADMITTED TO HOSPITAL;SISTER [facility] FOLLOWED PT DOWN TO ROOM 131. REPOST GIVEN TO FLOOR RN IN 131. FWHPAN WRIGHT
--- NOTE | 2016-10-08 13:45 | NUR ---
ARRIVED TO FLOOR PT ARRIVED TO THE FLOOR AT THIS TIME, TRANSFERRED SELF FROM CART TO BED WITH SBA. PT ALERT AND ORIENTED, WILL CONTINUE TO MONITOR.
[2016-10-08] MEDS: NORMAL SALINE IV SCH (15:19)
[2016-10-08] MEDS: RANITIDINE IV SCH (15:19)
[2016-10-08] MEDS: SUCRALFATE 1 G/10ml ORAL SUSPENSION PO SCH ×2 (17:07→20:48)
--- NOTE | 2016-10-08 18:47 | NUR ---
PROGRESS NOTE PT ALERT AND ORIENTED X3. VITAL SIGNS STABLE, ON RA. PT HAS HAD ADEQUATE URINE OUTPUT SINCE RETURNING TO THE FLOOR POST EGD. PT IS TOLERATING A CLEAR LIQUID DIET AT THIS TIME. PT HAS MET DISCHARGE CRITERIA, NO DISCHARGE ORDERS RECEIVED. PT HAS LR AND ZANTAC RUNNING INTO A RIGHT HAND IV. NO OTHER CONCERNS NOTED, WILL CONTINUE TO MONITOR.
[2016-10-08] MEDS: SALMETEROL ORAL INH SCH (20:24)
[2016-10-08] MEDS: [UNRECOGNIZED DRUG - OTHER] ORAL INH SCH (20:24)
[2016-10-08] MEDS: FLUTICASONE ORAL INH SCH (20:24)
[2016-10-08] MEDS: MORPHINE SULFATE 4 MG SYRINGE IV PRN (22:33)
--- NOTE | 2016-10-08 23:04 | OPNOTEF ---
DATE OF SERVICE 10/08/2016 SURGEON Lucian Ibrahim MD PREOPERATIVE DIAGNOSES Personal history for right upper quadrant abdominal pain, history for nausea, vomiting, history for probable melena and hematemesis. POSTOPERATIVE DIAGNOSES Personal history for right upper quadrant abdominal pain, history for nausea, vomiting, history for probable melena and hematemesis. Peptic ulcer disease revealing prepyloric ulcerations and duodenal ulcerations. PROCEDURE Esophagogastroduodenoscopy with biopsies from edge of gastric ulcers for permanent pathology, biopsies from antrum for MARYAN assay via cold biopsy technique. ANESTHESIA TIVA BRIEF HISTORY/INDICATIONS Mrs. Carpio is a 70-year-old female whom I saw in the office yesterday as a result of her onset of nausea, vomiting and description of noticing dark stools and "dark vomit." Patient had been on nonsteroidals as a result of a recent bout of bursitis involving her left hip. It was felt the patient was likely suffering from peptic ulcer disease and it was therefore recommended she undergo esophagogastroduodenoscopy for further evaluation. For completeness please refer to notes included in the patient's chart. FINDINGS Upon upper endoscopy the patient was found to have marked antritis with two associated prepyloric ulcerations. There was a white exudate overlying the ulcer bed. No evidence for active bleeding. There was some old blood still noted upon the surface of the mucosa within the stomach. Within the duodenum the patient was found to have two separate ulcerations as well, one within the duodenal bulb and the second within the second portion of the duodenum. Again, these were not actively bleeding and there was a white exudate-like material overlying the ulcer beds themselves. Photos were obtained documentation purposes. NARRATIVE OF PROCEDURE After informed consent was obtained the patient was brought to the endoscopy suite and placed upon the table in left lateral decubitus position. The patient subsequently underwent total intravenous anesthesia by the nurse social science teacher at my request. Formal time-out was then completed. Next, an Olympus gastroscope was inserted into the oral hypopharynx and subsequently into the esophagus under direct visualization. Gastroscope was advanced through the esophagus, stomach, pylorus, duodenal bulb, second portion of the duodenum. Scope was then slowly withdrawn. Within the second portion of the duodenum the patient was found to have moderate-sized ulceration containing a white exudate overlying the ulcer bed. No active bleeding was present. This ulceration was perhaps on the order of about 1 cm in diameter. The scope was drawn back into the duodenal bulb. A second duodenal ulcer was noted within the first portion of the duodenum. This ulcer was also on the order of about 8 mm to 1 cm in dimension. Once again, there was no evidence for active bleeding. There was a white exudate overlying the ulcer bed. The scope was drawn back to the prepyloric region and antrum. The mucosa within the antral portion of the stomach was indeed erythematous in nature. There were two separate ulcerations also noted within the prepyloric region. Photos were obtained for documentation purposes of these ulcerations. Biopsies were obtained from the edge of these ulcers for permanent pathology as well as biopsies from within the antrum for permanent pathology via cold biopsy technique as well. One could see a small amount of old blood upon the surface of the mucosa but there was no evidence for active bleeding. J-maneuver was then performed. Cardia and fundus were within normal limits. Endoscopically there was no evidence for hiatal hernia. Scope was allowed to straighten and was slowly withdrawn and the remaining corpus of the stomach was well visualized and again without noted abnormalities. Scope was drawn back to the level of the diaphragm. Squamocolumnar junction was located at the level of the diaphragm and was well demarcated with no endoscopic evidence for Rubalcava's metaplasia. Scope was slowly withdrawn and the remaining esophageal mucosa was found to be within normal limits. The patient tolerated the procedure without difficulty and was sent back to the preop area in stable condition. Will await biopsy results today's EGD and proceed accordingly with further recommendations thereafter. The patient has been having a fair amount of discomfort and nausea and vomiting at home. Will address today how she is doing and determine whether or not she may require admission to the hospital for further care versus continued care on an outpatient basis. [facility]
--- NOTE | 2016-10-08 23:04 | HPF ---
FINDINGS Ms. Carpio is a 70-year-old female whom I saw yesterday in my surgical office as a result of her history for epigastric abdominal pain, nausea, vomiting, melena, and probable hematemesis. For completeness please refer to office notes included within hospital system. The patient underwent an EGD this morning and was found to have fairly significant peptic ulcer disease with ulcerations being noted within her duodenum and her stomach. She has been unable to really take much in the way of oral intake for she has been experiencing a fair amount of nausea and vomiting. She also has been experiencing a considerable amount of abdominal discomfort. It was elected that we would place her in the hospital on an outpatient basis following her EGD as a result of the above indications. PAST MEDICAL HISTORY, PAST SURGICAL HISTORY, MEDICATIONS, ALLERGIES, SOCIAL HISTORY, FAMILY HISTORY, REVIEW OF SYSTEMS Please refer to dictated note included within EMR. EXAM VITAL SIGNS: Earlier today temperature 97.4, pulse 70, respirations 16, blood pressure 107/67, SAO2 96% on room air. HEART: Regular rate and rhythm. Normal S1 and S2 without gallops, murmurs or clicks. CHEST: Clear to auscultation bilaterally. HEART: Regular rate and rhythm. Normal S1 and S2 without gallops, murmurs or clicks. ABDOMEN: Palpation within the epigastric region does reveal a component of voluntary guarding. There was no evidence for involuntary guarding or rebound. No evidence for hepatomegaly or other abnormal masses. EXTREMITIES: Without clubbing, cyanosis, or edema. NEURO: Cranial nerves II-XII grossly intact. Patient is without focal motor or sensory deficits. ASSESSMENT 70-year-old female with significant peptic ulcer disease. Patient with finding of anemia upon laboratory evaluation. Patient with persistent nausea, vomiting and poor oral intake. PLAN As a result of her significant peptic ulcer disease that was noted today upon endoscopy in conjunction with her clinical history of persistent nausea, vomiting and poor oral intake, it was my recommendation that we go ahead and place the patient in the hospital on an outpatient basis. Recommend placing the patient on a Zantac drip and IV PPI. Will place the patient on clear liquids. If over the next 24 hours the patient is able to demonstrate that she is able to take p.o. without nausea and vomiting and will be able to meet her caloric intake needs, will at that point in time go ahead and discharge to home on an outpatient basis and continue with ongoing medical therapy. MTDD
[2016-10-09 00:31] VITALS: BP 125/65; PULSE 65; RESP 18; TEMP 97.5; O2SAT 98
[2016-10-09] MEDS: MORPHINE SULFATE 4 MG SYRINGE IV PRN ×2 (03:46→21:54)
[2016-10-09 05:16] LABS: BASOPHILS % (AUTO) 0.4 % (0-2); EOSINOPHILS # (AUTO) 0.2 T/MM3 (0-0.5); HCT - HEMATOCRIT 27.4 % (36-46); HGB - HEMOGLOBIN 8.6 GM/DL (12-16); LYMPHOCYTES # (AUTO) 1.8 T/MM3 (1-4.8); LYMPHOCYTES % (AUTO) 36.8 % (23-45); MEAN CORPUSCULAR HGB 31.2 UUG (26-34); MEAN CORPUSCULAR HGB CONC(MCHC 31.4 GM/DL (31-37); MEAN CORPUSCULAR VOLUME 99.3 UM3 (80-100); MEAN PLATELET VOLUME 9.4 UM3 (9.4-12.4); MONOCYTES # (AUTO) 0.5 T/MM3 (0-0.8); NEUTROPHILS #(AUTO)-ABSOLUTE 2.3 T/MM3 (1.8-7.7); NEUTROPHILS % (AUTO) 46.8 % (33-66); RED BLOOD COUNT 2.76 M/MM3 (4.00-5.20); WBC - WHITE BLOOD COUNT 4.8 T/MM3 (4.5-11.0)
--- NOTE | 2016-10-09 05:21 | NUR ---
Pt has been unable to sleep during the night. Asked for and received morphine twice for stomach pain.
[2016-10-09 05:24] LABS: ANION GAP 11 MEQ/L (5-15); BUN/CREATININE RATIO 20 RATIO (6-26); CALCIUM 8.8 MG/DL (8.4-10.2); CHLORIDE 113 MEQ/L (98-107); CO2 - CARBON DIOXIDE 20 MEQ/L (22-30); CREATININE 0.7 MG/DL (0.7-1.2); GLOMERULAR FILTRATION RATE 82; GLUCOSE 99 MG/DL (65-110); POTASSIUM 3.9 MEQ/L (3.6-5); SODIUM 144 MEQ/L (134-144)
[2016-10-09] MEDS: SUCRALFATE 1 G/10ml ORAL SUSPENSION PO SCH ×4 (05:41→22:17)
[2016-10-09 06:53] VITALS: BP 125/65; PULSE 65; RESP 18; TEMP 97.5; O2SAT 98
[2016-10-09 07:40] VITALS: BP 127/65; PULSE 65; RESP 16; TEMP 97.1; O2SAT 98
--- NOTE | 2016-10-09 09:00 | PNSURG ---
Subjective DATE: 10/09/16 TIME: 08:48 Interval History She is feeling better this morning than upon admission, the Zantac drip and carafate as well as Protonix BID appear to be helping. She was noted to have several gastric and duodenal ulcerations upon EGD yesterday. HGB also has dropped from 12.1 on the 9th to 8.6 today. She was able to eat some broth and jello yesterday without emesis, which is an improvement from prior to admission. She still has epigastric and LUQ pain on palpation. Denies chest pain. She is on oxygen, uses this at night at home with c-pap. Objective Vital Signs Date Time Temp Pulse Resp B/P Pulse Ox O2 Delivery O2 Flow Rate FiO2 10/09/16 07:40 97.1 65 16 127/65 98 Nasal Cannula 2.00 Height (Feet): 5 Height (Inches): 4.00 Weight (Kilograms): 94.200 BMI 35.2 General Appearance: Alert, Orientated x 3 Respiratory: FOUND: clear all alaniz Cardiac: FOUND: regular rate, regular rhythm Abdominal Brief: FOUND: soft, tender (pain rated at 3-4 with palpation in epigastric and LUQ, less in RUQ) Laboratory Laboratory Tests 10/09/16 04:48 Laboratory Tests 10/09/16 04:48 Procedure Procedure Date: Oct 08, 2016 Surgeon: Alexandria SANTIAGO Assessment & Plan Problems: (1) Duodenal ulcer disease Status: Acute (2) Gastric ulcer Status: Acute Qualifiers: Gastric ulcer chronicity: acute Gastric ulcer complication status: without hemorrhage or perforation Qualified Codes: K25.3 - Acute gastric ulcer without hemorrhage or perforation (3) Nausea & vomiting Status: Acute (4) HTN (hypertension) Status: Chronic Qualifiers: Hypertension type: essential hypertension Qualified Codes: I10 - Essential (primary) hypertension (5) CADY (obstructive sleep apnea) Status: Chronic (6) COPD (chronic obstructive pulmonary disease) Status: Chronic Qualifiers: Emphysema type: unspecified (7) CAD (coronary artery disease) Status: Chronic Assessment Doing better since starting Zantac drip, Carafate QID, and PPI BID. Able to keep down clear liquids for the 1st time in several days. Oxygen at night, needs her c-pap. Given the extent of ulcerations, several within the duodenum and prepyloric region of the stomach, would like to keep her on the Zantac drip and IV protonix as well as carafate PO and IV hydration. She is not able to tolerate regular diet yet, only last night able keep down clear liquids. The evening before the EGD she tried clear liquids at home and about 2 hours later vomited. ADDENDUM: 5:30 pm she was made IP today for ongoing management of the significant peptic ulcer disease treatment. Continue Zontac gtt, Protonix AV BID, advance diet to soft. Repeat labs in am. Anticipate discharge tomorrow or the following day. discharge ordered and meds place in computer. will follow up with Alexandria in 3-4 weeks. DVT Prophylaxis: SCD'S GI Prophylaxis: Protonix, Rantidine Code Status Full Code, unverified Hospital Course Summary Disclaimer The visit summary below is not to be considered part of the above Progress Note. Hospital Course Summary 4-13 EGD - prepyloric and duodenal ulcers As a result of her significant peptic ulcer disease that was noted today upon endoscopy in conjunction with her clinical history of persistent nausea, vomiting and poor oral intake, it was my recommendation that we go ahead and place the patient in the hospital on an outpatient basis. Recommend placing the patient on a Zantac drip and IV PPI. Will place the patient on clear liquids. If over the next 24 hours the patient is able to demonstrate that she is able to take p.o. without nausea and vomiting and will be able to meet her caloric intake needs, will at that point in time go ahead and discharge to home on an outpatient basis and continue with ongoing medical therapy. 4-14 She is feeling better this morning than upon admission, the Zantac drip and carafate as well as Protonix BID appear to be helping. She was noted to have several gastric and duodenal ulcerations upon EGD yesterday. HGB also has dropped from 12.1 on the to 8.6 today. She was able to eat some broth and jello yesterday without emesis, which is an improvement from prior to admission. She still has epigastric and LUQ pain on palpation. Denies chest pain. She is on oxygen, uses this at night at home with c-pap. FERNANDEZ STEPHEN APRN Oct 09, 2016 08:52
[2016-10-09] MEDS: [UNRECOGNIZED DRUG - OTHER] ORAL INH SCH ×2 (09:20→19:16)
[2016-10-09] MEDS: SALMETEROL ORAL INH SCH ×2 (09:20→19:16)
[2016-10-09] MEDS: FLUTICASONE ORAL INH SCH ×2 (09:20→19:16)
[2016-10-09] MEDS: AMLODIPINE 5 MG TABLET PO SCH (09:49)
[2016-10-09] MEDS: LOSARTAN 100 MG TABLET PO SCH (09:50)
[2016-10-09] MEDS: PANTOPRAZOLE 40mg INJECTION IV SCH ×2 (09:51→22:17)
--- NOTE | 2016-10-09 10:45 | NUR ---
DALIA CM IN TO VISIT WITH PT. SHE IS ALERT AND ORIENTED. SHE PLANS TO RETURN HOME. SHE DENIES DC NEEDS. LACE SCORE IS 6. Addendum: 10/09/16 at 1045 by GILBERT SCHMIDT RN Amended: Links added.
--- OUTSIDE RECORDS SUMMARY | 2016-10-09 11:41 | XMS REPORT | Continuity of Care Document ---
Author Author [facility] Organization [facility] Address Unknown Phone Unavailable Support Name Relationship Address Phone ALFIEKIMMY Caregiver [address] [place] [address] ANDREW COLLINS MD Caregiver [address] [place], [place] [phone] JOSH MONREAL MD Caregiver [address] [place] [address] DHIRAJ CARPIO Next Of Kin [address] [place], [place] [phone] Insurance Providers Payer Name Policy Number Subscriber Name Relationship Medicare [id number] Gila Carpio 18 Self [facility] [id number] Gila Carpio 18 Self Advance Directives Directive [...] Up Appointments: Dr Collins in 1 week [phone] Patient Instructions: Hold asa for 1 week [...] F (96.8 - 99.1) Temperature (Calculated Celsius) 36.29100 degrees C (36.0 - 37.3) Temperature Source [...] 02, 2014 12:29pm LAB TEST FORM REQUEST [id number] - Lipase July 15, 2014 2:24pm 55 [...] 21, 2014 4:55am 6.3 % N 0-9.0 YO-Upl-P-Type Natriuretic Peptide July 02, 2014 10:15am 527 [...] Has specimen been collected/obtained? Y Urine Specific [place] July 15, 2014 5:09pm 1.025 - Has [...] 2014 5:25pm Name: GILA CARPIO Unit #: [id number] : 1945 Sex: F Loc / Svc: MED DOS: 07/15/14 Signed Report #: [id number] DIAGNOSTIC IMAGING REPORT TYPE OF EXAM: US [...] MD Encounters Encounter Location Date/Time Discharged Inpatient [facility] 07/16/14 11:56am Discharged Inpatient [facility] 07/05/14 9:55am Registered Clinic [facility] 07/02/14 10:30am Registered Clinic [facility] 05/11/14 10:24am Recent Diagnosis Pneumonia COPD (chronic obstructive pulmonary disease) Hypokalemia Diarrhea Nausea Pneumonia Diarrhea Diarrhea C. difficile colitis CADY (obstructive sleep apnea) Leukocytosis Suspected DVT (deep vein thrombosis)
--- OUTSIDE RECORDS SUMMARY | 2016-10-09 11:42 | XMS REPORT | Continuity of Care Document ---
Author Author [facility] Organization [facility] Address Unknown Phone Unavailable Allergies Medications Problems Procedures Results Encounters ACCT No. Visit Date/Time Discharge Status Pt. Type Provider Facility Loc./Unit Complaint [id number] 08/31/2013 13:33:00 08/31/2013 23 :59:59 CLS Outpatient
--- OUTSIDE RECORDS SUMMARY | 2016-10-09 11:44 | XMS REPORT | Continuity of Care Document ---
Author Author [facility] Organization [facility] Address Unknown Phone Unavailable Support Name Relationship Address Phone KATE BAUTISTA MD Caregiver [address] [place] [address] [place] [phone] GA ABRAMS MD Caregiver [address] [place] [address] [place] [address] ARAMIS [place] [address] Unavailable ANDREW VALERO MD Caregiver [address] [place] [address] [phone] DHIRAJ CARPIO Next Of Kin [address] [place] [id number] Insurance Providers Payer Name Policy Number Subscriber Name Relationship Medicare [id number] Gila Carpio 18 Self [employer] [facility] [id number] Gila Carpio 18 Self Advance Directives Directive [...] F (96.8 - 99.1) Temperature (Calculated Celsius) 36.54707 degrees C (36.0 - 37.3) Temperature Source [...] 02, 2014 12:29pm LAB TEST FORM REQUEST [id number] - Lymphocytes # (Auto) July 06, 2014 [...] 06, 2014 5:09am 2.6 % N 0-9.0 EB-Pou-W-Type Natriuretic Peptide July 02, 2014 10:15am 527 [...] Has specimen been collected/obtained? Y Urine Specific [place] July 05, 2014 12:00am 1.010 L - [...] 5 DAYS Name: GILA CARPIO Unit #: [id number] : 1945 Sex: F Loc / Svc: MED DOS: 07/05/14 Signed Report #: [id number] DIAGNOSTIC IMAGING REPORT TYPE OF EXAM: CHEST, [...] 07/02/14 Encounters Encounter Location Date/Time Discharged Inpatient [facility] 07/05/14 9:55am Registered Clinic [facility] 07/02/14 10:30am Registered [facility] 05/11/14 10:24am Recent Diagnosis Metabolic acidosis Pneumonia Sepsis Hyperosmolality and hypernatremia Hypokalemia CAD of autologous bypass graft HTN (hypertension) Hypercholesteremia COPD (chronic obstructive pulmonary disease) GERD (gastroesophageal reflux disease) Depression Headache Postsurgical ovarian failure Tachycardia Sepsis Nausea Hyperosmolality and hypernatremia Hypokalemia
[2016-10-09] MEDS: ONDANSETRON 4mg/2ml INJECTION IV PRN ×2 (12:48→21:58)
[2016-10-09] MEDS: RANITIDINE IV SCH (15:35)
[2016-10-09] MEDS: NORMAL SALINE IV SCH (15:35)
[2016-10-09] MEDS ORDERED: SUCR1TAB PO (17:42)
[2016-10-09] MEDS ORDERED: PANT40TA PO (17:42)
[2016-10-09] MEDS ORDERED: FERR325C PO (17:56)
[2016-10-09] MEDS ORDERED: ONDA4TAB7 PO (17:56)
--- NOTE | 2016-10-09 18:04 | NUR ---
END OF SHIFT REPORT PATIENT A/OX3. ROOM AIR. VITAL SIGNS STABLE. AFEBRILE. PT UP WITH STANDBY ASSIST. DENIES N/V CURRENTLY. ONE DOSE OF IV ZOFRAN WAS NEEDED FOR NAUSEA EARLIER IN THE SHIFT. DENIES CHEST PAIN AND SOA. NO PAIN PRNS HAVE BEEN ADMINISTERED. PATIENT TOLERATING FULL LIQUID TOAST/CRACKERS WELL. ADEQUATE URINARY OUTPUT. NO BM DURING THE SHIFT. WILL CONTINUE TO MONITOR.
--- NOTE | 2016-10-09 19:36 | PNF ---
DATE 10/09/2016 FINDINGS Ms. Carpio this evening states that she is feeling better. She was able to take in more fluids. She has still not eaten solid food. She did have some epigastric abdominal pain requiring morphine last evening. Her abdominal pain has been better today. PHYSICAL EXAMINATION VITAL SIGNS: Afebrile. Normotensive. Current vitals include temperature 97.1, pulse 65, respirations 16, blood pressure 127/67, SaO2 98% on 2 liters per nasal cannula. CHEST: Clear to auscultation bilaterally. HEART: Regular rate and rhythm. Normal S1 and S2 without gallops, murmurs or clicks. ABDOMEN: Palpation of the abdomen does reveal some minimal tenderness within the epigastric region. No evidence for guarding or rebound. LABORATORY/RADIOGRAPH EVALUATION Pathology did not return revealing any evidence for H. Pylori. Her MARYAN assay was negative. ASSESSMENT A 70-year-old female with significant peptic ulcer disease secondary to nonsteroidal use. Patient making marked improvement. PLAN Tentative discharge orders have been placed in computer for tomorrow. Patient will be dismissed to home with Prilosec 40 mg p.o. b.i.d. in conjunction with Carafate. Additionally, we will provide a prescription for Zofran for nausea as needed. Patient is to have a repeat hemoglobin in about two weeks at our clinic. Orders will be placed in the system for this to be accomplished. Patient is to follow up with myself or her PCP if any further concern should arise in the interim following her discharge. MARIMAR
[2016-10-09 20:00] VITALS: PULSE 70; RESP 16
[2016-10-09 23:52] VITALS: BP 129/69; PULSE 70; RESP 18; TEMP 97.4; O2SAT 95
[2016-10-10 05:07] LABS: BASOPHILS % (AUTO) 0.8 % (0-2); EOSINOPHILS # (AUTO) 0.2 T/MM3 (0-0.5); EOSINOPHILS % (AUTO) 4.1 % (0-4); HGB - HEMOGLOBIN 8.6 GM/DL (12-16); IMMATURE GRANULOCYTE # (AUTO) 0.01 T/MM3 (0.00-0.03); IMMATURE GRANULOCYTE % (AUTO) 0.2 % (0.0-0.5); LYMPHOCYTES # (AUTO) 1.8 T/MM3 (1-4.8); LYMPHOCYTES % (AUTO) 35.5 % (23-45); MEAN CORPUSCULAR HGB 30.7 UUG (26-34); MEAN CORPUSCULAR HGB CONC(MCHC 30.7 GM/DL (31-37); MEAN PLATELET VOLUME 8.9 UM3 (9.4-12.4); MONOCYTES # (AUTO) 0.6 T/MM3 (0-0.8); MONOCYTES % (AUTO) 11.4 % (0-9.0); NEUTROPHILS #(AUTO)-ABSOLUTE 2.5 T/MM3 (1.8-7.7); WBC - WHITE BLOOD COUNT 5.2 T/MM3 (4.5-11.0)
[2016-10-10 05:11] LABS: ANION GAP 8 MEQ/L (5-15); BUN/CREATININE RATIO 16 RATIO (6-26); CALCIUM 8.9 MG/DL (8.4-10.2); CHLORIDE 114 MEQ/L (98-107); CO2 - CARBON DIOXIDE 22 MEQ/L (22-30); CREATININE 0.7 MG/DL (0.7-1.2); GLOMERULAR FILTRATION RATE 82; GLUCOSE 102 MG/DL (65-110); POTASSIUM 3.8 MEQ/L (3.6-5); SODIUM 144 MEQ/L (134-144)
[2016-10-10] MEDS: SUCRALFATE 1 G/10ml ORAL SUSPENSION PO SCH (07:30)
[2016-10-10 07:37] VITALS: BP 107/59; PULSE 74; RESP 16; TEMP 97.5; O2SAT 92
[2016-10-10 07:41] VITALS: PULSE 74; RESP 16
[2016-10-10] MEDS: LOSARTAN 100 MG TABLET PO SCH (07:58)
[2016-10-10] MEDS: AMLODIPINE 5 MG TABLET PO SCH (08:01)
[2016-10-10] MEDS: PANTOPRAZOLE 40mg INJECTION IV SCH (08:01)
[2016-10-10] MEDS: SALMETEROL ORAL INH SCH (08:25)
[2016-10-10] MEDS: [UNRECOGNIZED DRUG - OTHER] ORAL INH SCH (08:25)
[2016-10-10] MEDS: FLUTICASONE ORAL INH SCH (08:25)
--- NOTE | 2016-10-10 11:15 | NUR ---
DISCHARGE PT DISCHARGED TO HOME AT THIS TIME IN THE COMPANY OF HER . PT TRANSPORTED TO THE ER ENTRANCE BY WHEELCHAIR AND STAFF. DISCHARGE INSTRUCTIONS INCLUDING DIET, ACTIVITY, MEDICATIONS, REPORTABLE S/S, FOLLOW UP APPOINTMENT AND DI FOR GASTRIC ULCERS GIVEN AND REVIEWED WITH PATIENT. SCRIPTS GIVEN TO PATIENT AND COPIES PLACED ON CHART. PT VERBALIZED UNDERSTANDING OF THESE INSTRUCTIONS AND HAD NO FURTHER QUESTIONS. IVL DISCONTINUED. ARMBAND REMOVED. PERSONAL BELONGINGS RETURNED.
--- NOTE | 2016-10-16 10:45 | GSDISC ---
General Date Date DATE: 10/16/16 TIME: 10:40 Attending Physician Lucian Woody MD,Facs,Cws Admitting Physician Lucian Woody MD,Facs,Cws Consulting Physician Discharge Diagnosis: (1) Anemia Status: Chronic (2) Duodenal ulcer disease Status: Acute (3) Gastric ulcer Status: Acute Procedures 4- EGD with biopsies, found duodenal and gastric ulcers Laboratory Laboratory Item Value Date Time Hemoglobin 8.6 GM/DL L 10/10/16424 Hemoglobin 8.6 GM/DL L 10/09/16447 White Blood Count 5.2 T/MM3 10/10/16424 White Blood Count 4.8 T/MM3 10/09/16447 Platelet Count 302 T/MM3 10/09/16447 Platelet Count 286 T/MM3 10/10/16424 Sodium Level 144 MEQ/L 10/09/16447 Potassium Level 3.9 MEQ/L 10/09/16447 Blood Urea Nitrogen 14.0 MG/DL 10/09/16447 Creatinine 0.7 MG/DL 10/09/16447 Blood Urea Nitrogen 11.0 MG/DL 10/10/16424 Creatinine 0.7 MG/DL 10/10/16424 Sodium Level 144 MEQ/L 10/10/16424 Potassium Level 3.8 MEQ/L 10/10/16424 Hospital Course 4- EGD - prepyloric and duodenal ulcers As a result of her significant peptic ulcer disease that was noted today upon endoscopy in conjunction with her clinical history of persistent nausea, vomiting and poor oral intake, it was my recommendation that we go ahead and place the patient in the hospital on an outpatient basis. Recommend placing the patient on a Zantac drip and IV PPI. Will place the patient on clear liquids. If over the next 24 hours the patient is able to demonstrate that she is able to take p.o. without nausea and vomiting and will be able to meet her caloric intake needs, will at that point in time go ahead and discharge to home on an outpatient basis and continue with ongoing medical therapy. 10-09 She is feeling better this morning than upon admission, the Zantac drip and carafate as well as Protonix BID appear to be helping. She was noted to have several gastric and duodenal ulcerations upon EGD yesterday. HGB also has dropped from 12.1 on the to 8.6 today. She was able to eat some broth and jello yesterday without emesis, which is an improvement from prior to admission. She still has epigastric and LUQ pain on palpation. Denies chest pain. She is on oxygen, uses this at night at home with c-pap. 4-15 DC to home. Home Meds Active Scripts Ferrous Sulfate (Iron) 325 Mg Capsule.er, 1 TAB PO BIDWM for 30 Days, #60 TAB BEST WITH FOOD. Prov:FERNANDEZ STEPHEN APRN 10/09/16 Ondansetron (Zofran Odt) 4 Mg Tab.rapdis, 4 MG PO Q6HR, #20 TAB Oral disintegrating tablet Prov:FERNANDEZ STEPHEN APRN 10/09/16 Pantoprazole Sodium (Protonix) 40 Mg Tablet.dr, 40 MG PO BID for ACID REFLUX for 30 Days, #60 TAB Take 1 tablet, by mouth, 2 times a day before Breakfast and Dinner. Prov:FERNANDEZ STEPHEN APRN 10/09/16 Sucralfate (Sucralfate) 1 Gm Tablet, 1 GM PO ACHS for 30 Days, #120 TAB Take 1 tablet, by mouth, 4 times a day (Before meals and at BEDTIME). Prov:FERNANDEZ STEPHEN APRN 10/09/16 Reported Medications Acetaminophen with Codeine (Tylenol with Codeine #3 Tablet) 300-30 Tablet, 1 TAB PO Q4H Y for PAIN, TAB Take 1 tablet, by mouth, every 4 hours as needed for Pain 10/07/16 Quercetin Dihydrate (Quercetin Dihydrate) 1 Gm Powder, 1 DOSE PO 5XD 10/04/16 Acetaminophen (Acetaminophen) 500 Mg Tablet, 2 TAB PO Q4H Y for PAIN 10/04/16 Guaifenesin/Dextromethorphan (Coricidin Hbp Softgel) 1 Each Capsule, 1 CAP PO PRN 10/04/16 Albuterol Sulfate (Proair HFA 90 mcg/actuation) 8.5 Gm Hfa.aer.ad, 1 PUFF INH Q4H Y for SHORTNESS OF AIR 10/04/16 Losartan Potassium (Cozaar) 100 Mg Tablet, 100 MG PO DAILY 10/04/16 Metoprolol Tartrate (Metoprolol Tartrate) 25 Mg Tablet, 25 MG PO BID 06/10/16 Atorvastatin Calcium (Atorvastatin Calcium) 40 Mg Tablet, 40 MG PO HS 06/10/16 Amlodipine Besylate (Amlodipine Besylate) 5 Mg Tablet, 5 MG PO DAILY 05/26/16 Tizanidine HCl (Tizanidine HCl) 2 Mg Capsule, 2 MG PO QID Y for PRN ORDERS 05/26/16 Furosemide (Furosemide) 20 Mg Tablet, 20 MG PO DAILY Y for PRN ORDERS 05/26/16 Fluticasone/Salmeterol (Advair 500-50 Diskus) 1 Each Disk.w.dev, 1 DISK IH BID 10/10/09 Discontinued Reported Medications Ibuprofen (Ibuprofen) 200 Mg Tablet, 2 TAB PO Q4H Y for PAIN 10/04/16 Omeprazole (Omeprazole) 20 Mg Tablet.dr, 20 MG PO ACB 10/04/16 Aspirin (Aspirin) 81 Mg Tab.chew, 81 MG PO DAILY 08/26/15 Discharge Disposition FERNANDEZ Castro APRN Oct 16, 2016 10:44
== END 2016-10-10 11:15 | disposition home or self-care (01) | DRG 384 ==
LOC: SCU 09:01 → SRG 13:26 → SCU 10-09 11:22 → SRG 10-09 11:23
PROVIDERS: ADMIT Surgery; ATTEND Surgery
PROC: 0DB68ZX Excision of Stomach, Via Natural or Artificial Opening Endoscopic, Diagnostic (ICD-10-PCS; 2016-10-08)
PROC: 0DB98ZX Excision of Duodenum, Via Natural or Artificial Opening Endoscopic, Diagnostic (ICD-10-PCS; principal; 2016-10-08 12:24)
DX: K26.9 Duodenal ulcer, unspecified as acute or chronic, without hemorrhage or perforation (principal); K25.9 Gastric ulcer, unspecified as acute or chronic, without hemorrhage or perforation
CPT/HCPCS: 36415; 80048; 85025; 87081; 88305; 94640

== ENCOUNTER 2017-07-09 03:35 | Inpatient (IN) ==
[2017-07-09] MEDS ORDERED: DEXAMETHASONE 4 MG/ML INJECTION IM ONE (03:41)
[2017-07-09] MEDS ORDERED: ALBUTEROL/IPRATROPIUM 2.5mg-0.5mg/3ml NEB AEROSOL ONE ×2 (03:41→04:41)
--- NOTE | 2017-07-09 04:13 | Emergency Department Report ---
SOB HPI - General Chief Complaint: Shortness of Breath/Dyspnea Stated Complaint: Shortness of breath Time Seen by Provider: 07/09/17 03:39 Source: patient Mode of arrival: ambulatory Limitations: no limitations - History of Present Illness Patient has had cough and difficulty breathing for one week. The past 12 hours or difficulty breathing has significantly worsened. Tonight the patient felt as though she couldn't catch her breath, was coughing up thick mucus which was causing her to vomit. Patient was given Zofran by EMS in route, but continued to have thick mucus production and gagging. Patient also continued to have mild hypoxemia and route, as well as symptoms of severe anxiety. Once the patient was placed on supplemental oxygen, her O2 saturations improved and her anxiety improved as well. However oxygen alone was unable to stop the patient's difficulty breathing. - Related Data Home Medications Medication Instructions Recorded Confirmed Fluticasone/Salmeterol 500/50 1 disk IH BID #0 10/10/09 07/09/17 [Advair 500-50Diskus] Tizanidine HCl 2 mg PO QID PRN #0 05/26/16 07/09/17 Atorvastatin Calcium 40 mg PO HS #0 06/10/16 07/09/17 Metoprolol Tartrate 25 mg PO BID #0 06/10/16 07/09/17 Albuterol Sulfate [Proair Hfa] 1 puff INH Q4H PRN #0 10/04/16 07/09/17 Losartan Potassium [Cozaar] 100 mg PO DAILY #0 10/04/16 07/09/17 Prilosec OTC (Omeprazole 20 mg PO DAILY tab 04/19/17 07/09/17 magnesium) 20 mg tablet,delayed release acetaminophen 300 mg-codeine 30 mg 2 tab PO Q6H PRN 04/19/17 07/09/17 tablet aspirin 81 mg tablet,delayed 81 mg PO DAILY tab 04/19/17 07/09/17 release Allergies Allergy/AdvReac Type Severity Reaction Status Date / Time Sulfa (Sulfonamide Allergy Unknown Nausea and Verified 07/09/17 03:51 Antibiotics) Vomiting amoxicillin trihydrate Allergy Unknown Nausea and Uncoded 07/09/17 03:51 Vomiting potassium clavulanate Allergy Unknown Uncoded 07/09/17 03:51 Review of Systems All systems: reviewed and negative except as stated PFSH Patient Stated Medical History Cataracts Yes Hypertension Yes Chronic Obstructive Pulmonary Yes Disease (COPD) Pneumonia Yes Gastroesophageal Reflux Yes Disease Ulcer Yes MRSA Yes Shingles Yes Clinic Medical History (Last Reviewed 04/26/17 @ 16:21 by Joanna Caceres MD) CADY (obstructive sleep apnea) (Chronic Medical) COPD (chronic obstructive pulmonary disease) (Chronic Medical) MRSA (methicillin resistant Staphylococcus aureus) (Inactive Medical) Anemia (Chronic Medical) Colon polyps (Chronic Medical) Cataract (Resolved Medical) Hypertension (Chronic Medical) Chest pain (Chronic Medical) COPD Asthma Hypertension Hypercholesterolemia Coronary artery disease. Recent C. difficile colitis. Sleep apnea with CPAP use. GERD Depression Obesity. History of alcohol abuse. Former tobacco dependence-, quit 1989 approximately 45 year use ECHO- 07/2014- EF 61% Surgical History: Heart Stents. Appendectomy. Hysterectomy. 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 Family History: Family History (Last Reviewed 04/26/17 @ 16:21 by Joanna Caceres MD) Mother Liver cancer Father Lung cancer - Social History Smoking status: Former smoker Substance use type: does not use Alcohol intake frequency: does not drink Physical Exam - Limitations Limitations: no limitations - General General appearance: alert, in distress (significant respiratory distress with O2 saturations at 89% on 5 L nasal cannula) - Normal Exams: Head:: Normocephalic without trauma Eyes:: Pupils are PERRLA w/ EOMI, No scleral icterus, irritation, or foreign bodies noted ENMT:: No facial trauma, nasal exudates, pharyngeal erythema, or exudates are noted Neck:: Full range of motion, without adenopathy, JVD, bruits or thyromegaly Cardiovascular:: Regular rate and rhythm, without murmur or gallop, Pulses 2+ all extremities, capillary refill, <2 seconds all extremities Abdomen:: Bowel sounds positive, soft, non-tender, non-distended, no hepatosplenomegaly, masses or bruits noted Lymphatic:: No lymphadenopathy, or lymphedema noted Musculoskeletal:: No tenderness, or deformity noted, good range of motion, all extremities Integumentary:: No rashes, hives, or bruising noted, hair and nails, without abnormality Neurological:: Patient is alert, and oriented, cranial nerves, motor/sensory/ cerebellar, exams w/o gross deficits, to observation Psychiatric:: Patient exhibits, appropriate attention, emotion and affect - Chest Chest inspection: Present: normal inspection, symmetric chest wall rise. Absent : tenderness - Respiratory Respiratory exam: Present: respiratory distress, wheezes, prolonged expiratory phase. Absent: normal lung sounds bilaterally (harsh rhonchi with wheezes bilaterally), stridor, accessory muscle use Course Vital Signs Temperature 98.4 F 07/09/17 03:36 Pulse Rate 93 07/09/17 03:36 Respiratory Rate 28 H 07/09/17 03:36 Blood Pressure 179/70 H 07/09/17 03:36 Pulse Oximetry 91 07/09/17 03:36 Temperature 99.1 F 07/09/17 05:07 Pulse Rate 108 H 07/09/17 05:07 Respiratory Rate 20 07/09/17 05:07 Blood Pressure 161/72 H 07/09/17 05:07 Pulse Oximetry 92 07/09/17 05:07 Shortness of Breath/Dyspnea - MDM Narrative Medical decision making narrative: Patient was immediately given 2 DuoNeb treatments [id number] and Dexamethasone 8 mg IM with significant improvement, however temporary. After going to the bathroom and having to be moved around on the bed, patient was significant only short of breath again. CXR - left lower lobe infiltrate, acute change Patient continues to be hypoxemic, requiring 2-4 L nasal cannula to keep her O2 sats up. IV started lab drawn, and patient given 1 L normal saline IV fluid bolus and patient given 2 additional DuoNeb's Influenza - negative Patient started on Rocephin in the ER, IV Zithromax ordered as well Discussed with Dr. Jiménez, inpatient hypoxemia with pneumonia/COPD exacerbation - Lab Data Result diagrams: 07/09/17 04:45 07/09/17 04:45 Lab Results 07/09/17 07/09/17 07/09/17 Range/Units 03:53 04:30 04:45 WBC 11.2 H (4.5-11.0) T/MM3 RBC 4.13 (4.00-5.20) M/MM3 Hgb 12.8 (12-16) GM/DL Hct 39.2 (36-46) % MCV 94.9 (80-100) UM3 MCH 31.0 (26-34) UUG MCHC 32.7 (31-37) GM/DL RDW Std Deviation 52.4 H (36.9-50.2) FL Plt Count 262 (130-400) T/MM3 MPV 8.8 L (9.4-12.4) UM3 Immature Gran % (Auto) 0.2 (0.0-0.5) % Neut % (Auto) 83.3 H (33-66) % Lymph % (Auto) 10.9 L (23-45) % Burnett % (Auto) 4.5 (0-9.0) % Eos % (Auto) 0.9 (0-4) % Baso % (Auto) 0.2 (0-2) % Neut # (Auto) 9.4 H (1.8-7.7) T/MM3 Lymph # (Auto) 1.2 (1-4.8) T/MM3 Burnett # (Auto) 0.5 (0-0.8) T/MM3 Eos # (Auto) 0.1 (0-0.5) T/MM3 Baso # (Auto) 0.0 (0-0.2) T/MM3 Abs Immat Gran (auto) 0.02 (0.00-0.03) T/MM3 Turbidity (0-20) Sodium (134-144) MEQ/L Potassium (3.6-5) MEQ/L Chloride (98-107) MEQ/L Carbon Dioxide (22-30) MEQ/L Anion Gap (5-15) MEQ/L BUN (7-17) MG/DL Creatinine (0.7-1.2) MG/DL GFR Calculation BUN/Creatinine Ratio (6-26) RATIO Glucose (65-110) MG/DL Calculated Osmolality (261-280) MOSM/KG Calcium (8.4-10.2) MG/DL Total Bilirubin (0.20-1.30) MG/DL Conjugated Bilirubin (0.00-0.30) MG/DL Unconjugated Bilirubin (0.00-1.1) MG/DL Icterus Index (0-7) AST (14-36) U/L ALT (9-52) U/L Alkaline Phosphatase (38-126) U/L Total Protein (6.3-8.2) G/DL Albumin (3.5-5.0) G/DL Globulin (2.4-3.6) G/DL Albumin/Globulin Ratio (1.1-2.2) RATIO Plasma Lactate (0.6-2.2) MMOL/L Specimen Hemolysis (0-25) Ur Collection Type Urine, clean catch Urine Color Yellow (YELLOW) Urine Clarity Clear Urine pH 5.0 (5.0-8.0) Ur Specific Elliott 1.015 (1.015-1.025) Urine Protein Negative (NEGATIVE) Urine Glucose (UA) Negative (NEGATIVE) Urine Ketones Negative (NEGATIVE) Urine Occult Blood Negative (NEGATIVE) Urine Nitrate Negative (NEGATIVE) Urine Bilirubin Negative (NEGATIVE) Urine Urobilinogen 0.2 (NORMAL) EU/DL Ur Leukocyte Esterase Trace A (NEGATIVE) Urinalysis Comment Microscopic not ind. Influenza Type A (PCR) Negative (Negative) Influenza Type B (PCR) Negative (Negative) 07/09/17 Range/Units 04:45 WBC (4.5-11.0) T/MM3 RBC (4.00-5.20) M/MM3 Hgb (12-16) GM/DL Hct (36-46) % MCV (80-100) UM3 MCH (26-34) UUG MCHC (31-37) GM/DL RDW Std Deviation (36.9-50.2) FL Plt Count (130-400) T/MM3 MPV (9.4-12.4) UM3 Immature Gran % (Auto) (0.0-0.5) % Neut % (Auto) (33-66) % Lymph % (Auto) (23-45) % Burnett % (Auto) (0-9.0) % Eos % (Auto) (0-4) % Baso % (Auto) (0-2) % Neut # (Auto) (1.8-7.7) T/MM3 Lymph # (Auto) (1-4.8) T/MM3 Burnett # (Auto) (0-0.8) T/MM3 Eos # (Auto) (0-0.5) T/MM3 Baso # (Auto) (0-0.2) T/MM3 Abs Immat Gran (auto) (0.00-0.03) T/MM3 Turbidity < 20 (0-20) Sodium 141 (134-144) MEQ/L Potassium 4.3 (3.6-5) MEQ/L Chloride 110 H (98-107) MEQ/L Carbon Dioxide 20 L (22-30) MEQ/L Anion Gap 11 (5-15) MEQ/L BUN 23.0 H (7-17) MG/DL Creatinine 0.8 (0.7-1.2) MG/DL GFR Calculation 70 BUN/Creatinine Ratio 29 H (6-26) RATIO Glucose 112 H (65-110) MG/DL Calculated Osmolality 276 (261-280) MOSM/KG Calcium 9.9 (8.4-10.2) MG/DL Total Bilirubin 0.50 (0.20-1.30) MG/DL Conjugated Bilirubin 0.00 (0.00-0.30) MG/DL Unconjugated Bilirubin 0.30 (0.00-1.1) MG/DL Icterus Index < 2 (0-7) AST 25 (14-36) U/L ALT 30 (9-52) U/L Alkaline Phosphatase 94 (38-126) U/L Total Protein 7.2 (6.3-8.2) G/DL Albumin 4.3 (3.5-5.0) G/DL Globulin 2.9 (2.4-3.6) G/DL Albumin/Globulin Ratio 1.5 (1.1-2.2) RATIO Plasma Lactate 2.1 (0.6-2.2) MMOL/L Specimen Hemolysis < 15 (0-25) Ur Collection Type Urine Color (YELLOW) Urine Clarity Urine pH (5.0-8.0) Ur Specific Elliott (1.015-1.025) Urine Protein (NEGATIVE) Urine Glucose (UA) (NEGATIVE) Urine Ketones (NEGATIVE) Urine Occult Blood (NEGATIVE) Urine Nitrate (NEGATIVE) Urine Bilirubin (NEGATIVE) Urine Urobilinogen (NORMAL) EU/DL Ur Leukocyte Esterase (NEGATIVE) Urinalysis Comment Influenza Type A (PCR) (Negative) Influenza Type B (PCR) (Negative) Critical Care Time Critical Care Time: Yes Total Critical Care Time: 45 Attestation: She required aggressive treatment and diagnostics for hypoxemia associated with severe respiratory distress, final diagnoses pneumonia, hypoxemia, COPD exacerbation Disposition Clinical Impression: COPD exacerbation, Hypoxemia Pneumonia Qualifiers: Pneumonia type: due to unspecified organism Laterality: left Lung location: lower lobe of lung Qualified Code(s): J18.1 - Lobar pneumonia, unspecified organism Disposition: 02 To [facility] [place] Acute Care Condition: Improved Prescriptions: No Action Fluticasone/Salmeterol 500/50 [Advair 500-50Diskus] 1 disk IH BID #0 Tizanidine HCl 2 mg PO QID PRN #0 PRN Reason: PRN ORDERS Atorvastatin Calcium 40 mg PO HS #0 Metoprolol Tartrate 25 mg PO BID #0 Losartan Potassium [Cozaar] 100 mg PO DAILY #0 Albuterol Sulfate [Proair Hfa] 1 puff INH Q4H PRN #0 PRN Reason: SHORTNESS OF AIR acetaminophen 300 mg-codeine 30 mg tablet 2 tab PO Q6H PRN PRN Reason: pain Prilosec OTC (Omeprazole magnesium) 20 mg tablet,delayed release 20 mg PO DAILY tab aspirin 81 mg tablet,delayed release 81 mg PO DAILY tab Referrals: Corine Black DO [Family Provider] - - Seen By: physician
[2017-07-09] MEDS ORDERED: NS 1,000 ML IV ONE (04:35)
[2017-07-09] MEDS ORDERED: AMOXICILLIN 400 MG/5 ML ORAL LIQUID PO ONE (05:06)
[2017-07-09] MEDS ORDERED: KETOROLAC 30 MG/ML INJECTION IVP ONE (05:22)
[2017-07-09] MEDS ORDERED: CEFTRIAXONE (ER USE ONLY) 1 GM in NS 100 ML IV ONE (05:22)
[2017-07-09] MEDS ORDERED: ACETAMINOPHEN 500 MG TABLET PO ONE (05:23)
[2017-07-09] MEDS ORDERED: AZITHROMYCIN IV 500 MG in NS 250ml 250 ML IV ONE (05:32)
--- NOTE | 2017-07-09 06:30 | History & Physical Report ---
History of Present Illness Date: 07/09/17 Chief complaint: Cough and dyspnea HPI: 71 year old female with a history of COPD presents to the emergency department this morning with 1 week of cough and congestion. She has been using inhalers at home without much benefit. She came to the ER seeking further treatment. A chest x-ray demonstrates left lower lobe pneumonia. She was given 4 duoneb treatments and an IM shot of dexamethasone. She was also given IV fluids. She could not be weaned from oxygen in the ER, and continues to require 2 - 3 of oxygen to maintain saturations. Lactic acid was acceptable. UA was negative. Influenza screening was negative.She is coming into the hospital for further treatment of community-acquired pneumonia this morning. Please note this patient encounter was performed via the use of telemedicine technology Review of Systems All systems PM: 10-point ROS was reviewed, no additional remarkable complaints except Past Medical History Clinic Medical History (Last Reviewed 04/26/17 @ 16:21 by Joanna Caceres MD) CADY (obstructive sleep apnea) (Chronic Medical) COPD (chronic obstructive pulmonary disease) (Chronic Medical) MRSA (methicillin resistant Staphylococcus aureus) (Inactive Medical) Anemia (Chronic Medical) Colon polyps (Chronic Medical) Cataract (Resolved Medical) Hypertension (Chronic Medical) Chest pain (Chronic Medical) Surgical History: Heart Stents. Appendectomy. Hysterectomy. 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 Family History: Family History (Last Reviewed 04/26/17 @ 16:21 by Joanna Caceres MD) Mother Liver cancer Father Lung cancer Family History Updates: Non contributory - Social History Smoking status: Former smoker Medications Home Medications Medication Instructions Recorded Confirmed Type Fluticasone/Salmeterol 500/50 1 disk IH BID #0 10/10/09 07/09/17 History [Advair 500-50Diskus] Tizanidine HCl 2 mg PO QID PRN #0 05/26/16 07/09/17 History Atorvastatin Calcium 40 mg PO HS #0 06/10/16 07/09/17 History Metoprolol Tartrate 25 mg PO BID #0 06/10/16 07/09/17 History Albuterol Sulfate [Proair Hfa] 1 puff INH Q4H PRN #0 10/04/16 07/09/17 History Losartan Potassium [Cozaar] 100 mg PO DAILY #0 10/04/16 07/09/17 History Prilosec OTC (Omeprazole 20 mg PO DAILY tab 04/19/17 07/09/17 History magnesium) 20 mg tablet,delayed release acetaminophen 300 mg-codeine 30 mg 2 tab PO Q6H PRN 04/19/17 07/09/17 History tablet aspirin 81 mg tablet,delayed 81 mg PO DAILY tab 04/19/17 07/09/17 History release Allergies Allergy/AdvReac Type Severity Reaction Status Date / Time Sulfa (Sulfonamide Allergy Unknown Nausea and Verified 07/09/17 03:51 Antibiotics) Vomiting amoxicillin trihydrate Allergy Unknown Nausea and Uncoded 07/09/17 03:51 Vomiting potassium clavulanate Allergy Unknown Uncoded 07/09/17 03:51 Exam Vital Signs: Temperature 99.1 F 07/09/17 05:07 Pulse Rate 108 H 07/09/17 05:07 Respiratory Rate 20 07/09/17 05:07 Blood Pressure 161/72 H 07/09/17 05:07 Pulse Oximetry 92 07/09/17 05:07 - Constitutional Present: no acute distress, well nourished, well developed - Routine HEENT Exam Head: Present: normocephalic, atraumatic - Routine Respiratory Exam Present: decreased breath sounds, rhonchi. Absent: accessory muscle use - Routine Cardiovascular Exam Present: RRR - Routine Abdominal Exam Present: soft, non distended, non tender - Routine Extremities Exam Present: no edema - Routine Skin Exam Present: intact. Absent: rash - Routine Neurological Exam Present: alert, oriented X3 Results - Labs CBC & Chem 7: 07/09/17 04:45 07/09/17 09:07 Assessment and Plan (1) Pneumonia Current visit: Yes Status: Acute Assessment and Plan: Assessment 1. Community-acquired pneumonia of the left lower lobe with acute hypoxia - present on admission 2. COPD with presumptive acute exacerbation-wears 2L 02 through her CPAP at [facility] Plan Patient will be placed under admission status to the medical floor. Will plan to continue Rocephin and azithromycin for antibiotic coverage. Respiratory therapy protocol has been ordered. I will also continue IV systemic corticosteroid treatment with Solu-Medrol. Wean oxygen as tolerated. Home medication list has been reviewed and reconciled. DVT prophylaxis: SCD 07/09/2017-10:47 AM-Dr. Shaffer I have seen and examined the patient. I've reviewed the H&P above and agree. Please see my additions below. Chief complaint is shortness of breath History of present illness: Patient is a pleasant 71-year-old female with history of COPD and sleep apnea for which she uses CPAP with 2-3 L of oxygen. She states that her developed a URI about 3 weeks ago and she was taking Zicam for the first 1-2 weeks. Then about a week ago she started having a cough that became worse in the past 3-4 days. 1-2 days ago she developed chills and nausea. Last night she woke up feeling severely short of breath and did not feel like she couldn't catch her breath. 911 was called and she stated her sats were 86-94%. She has been noticing recently that she short of breath with exertion. She was brought into the emergency room and chest x- ray showed a left lower lobe pneumonia. She was started on azithromycin and Rocephin. Influenza testing was negative. Lactic acid level was normal. She has had mild sweating last night and low-grade fever. She's had generalized achiness. She states her ureters are ringing a little and not started last night. She has a mild headache on the top of her head which she states is a tension headache similar to when she has had in the past. Complaints of review of systems Patient denies chest pains. She denies palpitations. She denies any nausea, vomiting or diarrhea. She denies abdominal pain. She had history of GI bleed secondary to gastric ulcers last year but has done well since that time. She has not noticed any recent melena. She denies any constipation. She denies any urinary symptoms. She has some chronic left shoulder pain from avascular necrosis of the humerus. Otherwise cooperative review of systems are negative other than the above in history of present illness Past medical history: Obstructive sleep apnea for which she is uses CPAP with 2- 3 L of oxygen, COPD, history of MRSA sepsis one year ago, anemia, EGD 2016 revealing gastric and duodenal ulcers, colon polyps, hypertension, history of chest pain, history of positive C. difficile PCR without overt infection, hyperlipidemia, GERD, depression, obesity, avascular necrosis of the left humerus Past surgical history: Cardiac stent 1993, appendectomy, hysterectomy, noncancerous tumor removed from the right lung, tonsillectomy, D&C 6, bilateral cataract surgery, breast lump resection, EGD September 2016 Family history: Mother had liver cancer, father had lung cancer Social history: Former smoker, patient is retired Medications and allergies were reviewed Physical exam: MAXIMUM TEMPERATURE 99 1, heart rate 98, blood pressure 134/67, O2 sat 94% on 3 L, respiratory rate 24 Gen. this is a well-developed well-nourished pleasant female. She has mild conversational dyspnea. She is overweight. HEENT reveals sclerae to be anicteric and pupils are equal. Oropharynx is moist. Neck is supple without lymphadenopathy. Chest reveals no wheezing, rhonchi or crackles. She does have coughing with deep inspiration. Cardiovascular reveals a regular rate and rhythm without murmur. Abdomen is soft, obese, nontender with positive bowel sounds. Extremities are free of edema. Skin is warm and dry and without rashes. She does have some chronic bruises of her upper arms. Neurologic reveals patient to be alert and oriented 3 and with no focal deficits. Chest x-ray by my read and per radiology shows a left lower lobe pneumonia Influenza swab was negative. Blood cultures are pending. Lactate was 2.1 on arrival and improved to 1.7. White count was 11.2 with 83% neutrophils. Bicarbonate on admission was mildly low at 20 and worsened to 18. Blood sugar was 112 on arrival and worsened to 209, likely secondary to steroids Impression Community-acquired pneumonia Acute on chronic hypoxic respiratory failure. She uses 2 L of oxygen at night and is on room air during the day at home COPD exacerbation Obstructive sleep apnea for which she uses 2 L with her CPAP Hyperglycemia, likely secondary to steroids Mild metabolic acidosis History of MRSA one year ago History of PCR positive C. difficile without diarrhea Obesity History of coronary artery disease Gastric and duodenal ulcers in September of last year Plan Inpatient admission for community-acquired pneumonia and hypoxia. Continue Rocephin and azithromycin. Obtain sputum cultures. Urine for strep pneumo. Repeat chest x-ray tomorrow. Continue steroids IV and breathing treatments for now. Add guaifenesin. We'll check a pro-calcitonin today in case we need trending of results. Regarding hyperglycemia, will change to carb control diet, check Accu-Cheks and give sliding scale insulin if needed Up to chair for meals, increase activity as tolerated DVT Prophylaxis: SCD's, Lovenox - Physician Narrative Narrative: Date: 07/09/17 Time: 626 Hospital Course Summary Disclaimer: The visit summary below is not to be considered part of the above Progress Note.
[2017-07-09] MEDS: AZITHROMYCIN IV 500 MG in NS 250ml 250 ML IV SCH (07:37)
[2017-07-09] MEDS: OMEPRAZOLE 20 MG CAPSULE PO SCH ×2 (07:43→10:40)
--- NOTE | 2017-07-09 07:52 | XRay Report ---
INDICATION: cough, dyspnea PROCEDURE: CHEST 2-VIEWS UPRIGHT (PA & LAT) Encounter: Initial COMPARISON: July 08, 2016 FINDINGS: New airspace consolidation in the retrocardiac left lower lobe seen overlying the lower thoracic spine on the lateral view. Right lung is stable with areas of scarring but no acute infiltrate. Emphysema and areas of scarring bilaterally. There is no pleural effusion or pneumothorax. The heart size, mediastinal contours and pulmonary vascularity are stable. IMPRESSION: Left lower lobe pneumonia. .
[2017-07-09] MEDS: CEFTRIAXONE 2 GM INJECTION IV SCH (08:00)
[2017-07-09 08:01] VITALS: BMI 38.4
[2017-07-09] MEDS ORDERED: ALBUTEROL/IPRATROPIUM 2.5mg-0.5mg/3ml NEB AEROSOL PRN (10:41)
[2017-07-09] MEDS ORDERED: DEXTROSE 50% SYRINGE 50ml (1 AMP) IVP PRN (10:44)
[2017-07-09] MEDS ORDERED: GLUCOSE ORAL GEL 40% 37.5gm PO PRN (10:44)
[2017-07-09] MEDS: SALINE FLUSH 10ml SYRINGE IVF PRN ×2 (10:46→22:31)
[2017-07-09] MEDS: APAP/CODEINE 300 MG/30 MG TABLET PO PRN ×2 (10:46→17:44)
[2017-07-09] MEDS: METHYLPREDNISOLONE SOD SUCC 125mg/2ml INJECTION IVP SCH ×3 (10:47→22:28)
[2017-07-09] MEDS: ASPIRIN *EC* 81 MG TABLET PO SCH (10:47)
[2017-07-09] MEDS: GUAIFENESIN LA 600 MG TABLET PO SCH ×2 (12:05→22:29)
[2017-07-09] MEDS: ALBUTEROL/IPRATROPIUM 2.5mg-0.5mg/3ml NEB AEROSOL SCH ×3 (14:33→20:16)
[2017-07-09] MEDS: INSULIN ASPART 100unit/ml INJECTION SQ PRN ×2 (15:54→22:30)
[2017-07-09] MEDS: ATORVASTATIN 40 MG TABLET PO SCH (22:29)
[2017-07-10] MEDS: METHYLPREDNISOLONE SOD SUCC 125mg/2ml INJECTION IVP SCH ×4 (03:28→20:07)
[2017-07-10] MEDS: APAP/CODEINE 300 MG/30 MG TABLET PO PRN ×3 (03:28→20:08)
[2017-07-10] MEDS: SALINE FLUSH 10ml SYRINGE IVF PRN ×2 (03:29→20:08)
[2017-07-10] MEDS: CEFTRIAXONE 2 GM INJECTION IV SCH (05:30)
[2017-07-10] MEDS: AZITHROMYCIN IV 500 MG in NS 250ml 250 ML IV SCH (05:30)
[2017-07-10] MEDS: INSULIN ASPART 100unit/ml INJECTION SQ PRN ×4 (05:49→20:16)
[2017-07-10] MEDS: NS FLUSH BAG 500ml IV PRN (06:34)
[2017-07-10] MEDS: ALBUTEROL/IPRATROPIUM 2.5mg-0.5mg/3ml NEB AEROSOL SCH ×4 (07:40→18:35)
[2017-07-10] MEDS: GUAIFENESIN LA 600 MG TABLET PO SCH ×2 (08:19→20:08)
[2017-07-10] MEDS: ASPIRIN *EC* 81 MG TABLET PO SCH (08:19)
[2017-07-10] MEDS: OMEPRAZOLE 20 MG CAPSULE PO SCH (08:19)
[2017-07-10] MEDS: ALPRAZolam 0.25 MG TABLET PO PRN ×2 (14:36→22:42)
--- NOTE | 2017-07-10 15:27 | Progress Note ---
- Date 07/10/17 Subjective: 71/y/o female with history of COPD and sleep apnea for which she uses CPAP with 2-3 L of oxygen. She states that her developed a URI about 3 weeks ago and she was taking Zicam for the first 1-2 weeks. Then about a week ago she started having a cough that became worse in the past 3-4 days. 1-2 days ago she developed chills and nausea. Last night she woke up feeling severely short of breath and did not feel like she couldn't catch her breath. 911 was called and she stated her sats were 86-94%. She has been noticing recently that she short of breath with exertion. She was brought into the emergency room and chest x- ray showed a left lower lobe pneumonia. She was started on azithromycin and Rocephin. Influenza testing was negative. Lactic acid level was normal. She has had mild sweating last night and low-grade fever. She's had generalized achiness. She states her ears are ringing a little. She has a mild headache on the top of her head which she states is a tension headache similar to when she has had in the past. She has been using inhalers at home without much benefit. She was given 4 duoneb treatments and an IM shot of dexamethasone. She was also given IV fluids. She could not be weaned from oxygen in the ER, and continued to require 2 - 3 of oxygen to maintain saturations. Today she is feeling better. She is maintaining oxygenation on room air. She continues to have a cough but no sputum production. She complains of a headache. She thinks it's a tension headache and would like something for anxiety. She has chronic sleep apnea is on 2 L of oxygen with her CPAP at night. She reports compliance with that. She has been ambulating in the halls. She states that with activity her oxygenation saturations do fall. She states that come right back up however when she sits back down. She's starting to feel like she has a stuffy nose. She is not had any fever or chills here. She has some achiness. She denies any chest pain or palpitations. She denies any nausea , vomiting or abdominal pain. She states she has not had a bowel movement since she's been here but she did have right before she came in. She does not complain of much in the way of edema. Objective Vital signs: Temperature 98.0 F 07/10/17 11:53 Pulse Rate 76 07/10/17 11:53 Respiratory Rate 18 07/10/17 14:55 Blood Pressure 145/72 H 07/10/17 11:53 Pulse Oximetry 94 07/10/17 14:55 Height/Weight/BMI: Height 1.63 m Weight 102.3 kg Body Mass Index 38.4 Comments: Gen: alert and oriented. NAD. Pleasant and conversive Skin: warm and dry. HEENT: NC/AT PERRL, EOMI, Sclera,lids and conjunctiva wnl. MMM. OP clear. Neck: supple. No JVD. Carotids 2+ without bruits Lungs: Coarse bilaterally. CV: regular rate and rhythm. No murmur, rub or gallop No edema. Pedal pulses are good Abd: soft. +BS. NT/ND MS: Good strength and ROM. Neuro: no focal deficit. Results - Labs CBC & Chem 7: 07/10/17 06:21 07/10/17 06:21 Microbiology Results: Microbiology 07/09/17 15:51 Sputum, Expectorated Sputum Culture - Preliminary Culture Initiated - Results Pending - ABG Interpretation ABG results: 07/09/17 12:10 ABG pH 7.400 ABG pCO2 29 L ABG pO2 74 L ABG HCO3 18 L ABG Total CO2 18.9 L ABG O2 Saturation 95.0 ABG Base Excess -5.6 L Assessment and Plan (1) Pneumonia Current visit: Yes Status: Acute Assessment and Plan: Assessment and Plan: 1. Community-acquired pneumonia -left lower lobe with acute hypoxia - present on admission -she is currently on room air at rest. We will need to do an exercise oximetry on her -Resp therapy -IV steroids 62.5mg q6hr -Rocephin and azithromycin -IS 2. COPD with presumptive acute exacerbation -wears 2L 02 through her CPAP at [facility] -IS 3. CADY -use a CPAP with 2 L of oxygen. She is compliant. 4. H/O gastric ulcers and GERD -PPI 5. HTN -Metoprolol 25mg BID -Losartan 100mg daily 6. HLP -Lipitor 40mg daily 7. Hyperglycemia -Steroid induced -SSI 8. Prophylaxis -SCDs, PPI Increase activity. Check exercise O2 sat. DVT Prophylaxis: SCD's GI Prophylaxis: other (Prilosec) Resuscitation Status: Full Code - Time spent with patient Time with patient PN: 25 minutes - Physician Narrative Narrative: Date: 07/10/17 Time: 1523 Hospital Course Summary Disclaimer: The visit summary below is not to be considered part of the above Progress Note.
[2017-07-10] MEDS: LOSARTAN 50 MG TABLET PO SCH (17:21)
[2017-07-10] MEDS: ATORVASTATIN 40 MG TABLET PO SCH (20:08)
[2017-07-11] MEDS: SALINE FLUSH 10ml SYRINGE IVF PRN ×2 (04:27→20:32)
[2017-07-11] MEDS: METHYLPREDNISOLONE SOD SUCC 125mg/2ml INJECTION IVP SCH ×3 (04:27→15:30)
[2017-07-11] MEDS ORDERED: IBUPROFEN 400 MG TABLET PO PRN (04:37)
[2017-07-11] MEDS: AZITHROMYCIN IV 500 MG in NS 250ml 250 ML IV SCH (05:14)
[2017-07-11] MEDS: INSULIN ASPART 100unit/ml INJECTION SQ PRN ×4 (05:15→21:11)
[2017-07-11] MEDS: APAP/CODEINE 300 MG/30 MG TABLET PO PRN ×3 (05:19→20:32)
[2017-07-11] MEDS: ALBUTEROL/IPRATROPIUM 2.5mg-0.5mg/3ml NEB AEROSOL SCH ×4 (07:21→23:03)
[2017-07-11] MEDS: LOSARTAN 50 MG TABLET PO SCH (08:29)
[2017-07-11] MEDS: GUAIFENESIN LA 600 MG TABLET PO SCH ×2 (08:29→20:31)
[2017-07-11] MEDS: OMEPRAZOLE 20 MG CAPSULE PO SCH (08:30)
[2017-07-11] MEDS: CEFTRIAXONE 1 G in NS 100 ML IV SCH (08:30)
[2017-07-11] MEDS: ASPIRIN *EC* 81 MG TABLET PO SCH (08:30)
[2017-07-11] MEDS: NS FLUSH BAG 500ml IV PRN (08:31)
--- NOTE | 2017-07-11 10:32 | XRay Report ---
INDICATION: pneumonia PROCEDURE: CHEST 2-VIEWS UPRIGHT (PA & LAT) Encounter: Initial COMPARISON: July 09, 2017 FINDINGS: Left lower lobe airspace consolidation is similar to the prior study. New small left effusion. Fibrosis and emphysema. No pneumothorax. Heart size and mediastinal contours are stable. Pulmonary vascularity is unchanged. Impression: Persistent left lower lobe with a new with a small parapneumonic effusion. .
[2017-07-11] MEDS ORDERED: FUROSEMIDE 20 MG/2 ML INJECTION IVP ONE (15:56)
--- NOTE | 2017-07-11 16:02 | Progress Note ---
- Date 07/11/17 Subjective: 71/y/o female with history of COPD and sleep apnea for which she uses CPAP with 2-3 L of oxygen. She states that her developed a URI about 3 weeks ago and she was taking Zicam for the first 1-2 weeks. Then about a week ago she started having a cough that became worse in the past 3-4 days. 1-2 days ago she developed chills and nausea. Last night she woke up feeling severely short of breath and did not feel like she couldn't catch her breath. 911 was called and she stated her sats were 86-94%. She has been noticing recently that she short of breath with exertion. She was brought into the emergency room and chest x- ray showed a left lower lobe pneumonia. She was started on azithromycin and Rocephin. Influenza testing was negative. Lactic acid level was normal. She has had mild sweating last night and low-grade fever. She's had generalized achiness. She states her ears are ringing a little. She has a mild headache on the top of her head which she states is a tension headache similar to when she has had in the past. She has been using inhalers at home without much benefit. She was given 4 duoneb treatments and an IM shot of dexamethasone. She was also given IV fluids. She could not be weaned from oxygen in the ER, and continued to require 2 - 3 of oxygen to maintain saturations. Today, she continues to feel a little better. She is maintaining oxygenation on room air as long as she is at rest. She does drop her saturations when she walks. She continues to have a cough but no sputum production. She has chronic sleep apnea is on 2 L of oxygen with her CPAP at night. She reports compliance with that. She has been ambulating in the halls. She is not had any fever or chills here. She denies any chest pain or palpitations. She denies any nausea, vomiting or abdominal pain. She states she has not had a bowel movement since she's been here but she did have right before she came in. She reports that this is not unusual for her. She does not feel as though she has to go. She does not complain of much in the way of edema. I did receive a call from nursing saying that she had a long run of the hack. Looking at it I do not see AV dissociation. It looks like she may have changed her axis and went into a incomplete block. She was asymptomatic. He has no history of any heart problems. She may benefit from a echocardiogram and a event monitor. Objective Vital signs: Temperature 96.9 F 07/11/17 15:36 Pulse Rate 69 07/11/17 15:47 Respiratory Rate 18 07/11/17 15:36 Blood Pressure 143/67 H 07/11/17 15:36 Pulse Oximetry 90 07/11/17 15:36 Height/Weight/BMI: Height 1.63 m Weight 101.6 kg Body Mass Index 38.4 Comments: Gen: alert and oriented. NAD. Pleasant and conversive Skin: warm and dry. HEENT: NC/AT PERRL, EOMI, Sclera,lids and conjunctiva wnl. MMM. OP clear. Neck: supple. No JVD. Carotids 2+ without bruits Lungs: Coarse bilaterally. CV: regular rate and rhythm. No murmur, rub or gallop No edema. Pedal pulses are good Abd: soft. +BS. NT/ND MS: Good strength and ROM. Neuro: no focal deficit. Results - Labs CBC & Chem 7: 07/11/17 04:26 07/10/17 06:21 Microbiology Results: Microbiology 07/09/17 19:40 Urine Streptococcus pneumoniae Antigen (M - Final 07/09/17 15:51 Sputum, Expectorated Sputum Culture - Preliminary No Growth After 1 Day Assessment and Plan (1) Pneumonia Current visit: Yes Status: Acute Assessment and Plan: Assessment and Plan: 1. Community-acquired pneumonia -left lower lobe with acute hypoxia - present on admission -she is currently on room air at rest. We will need to do an exercise oximetry on her -Resp therapy -will change to PO steroids, she will need a taper. -Rocephin and azithromycin -IS -chest x-ray yesterday continues to show the left lower lobe infiltrate now with small parent pneumonic effusion. -I am going to give her a dose of Lasix times 1. 2. COPD with presumptive acute exacerbation -wears 2L 02 through her CPAP at [facility] -IS 3. CADY -use a CPAP with 2 L of oxygen. She is compliant. 4. H/O gastric ulcers and GERD -PPI 5. HTN -Metoprolol 25mg BID-this was increased today to 50 mg twice daily -Losartan 100mg daily 6. HLP -Lipitor 40mg daily 7. Hyperglycemia -Steroid induced -SSI 8. Arrhythmia -?VT vs SVT with aberrant conduction-asymptomatic -metoprolol increase to 50 mg twice daily 9. Prophylaxis -SCDs, PPI - Physician Narrative Narrative: Date: 07/11/17 Time: 1559 Hospital Course Summary Disclaimer: The visit summary below is not to be considered part of the above Progress Note.
[2017-07-11] MEDS: ATORVASTATIN 40 MG TABLET PO SCH (20:32)
[2017-07-11] MEDS: ALPRAZolam 0.25 MG TABLET PO PRN (23:25)
[2017-07-12] MEDS: AZITHROMYCIN IV 500 MG in NS 250ml 250 ML IV SCH (05:44)
[2017-07-12] MEDS: SALINE FLUSH 10ml SYRINGE IVF PRN (05:44)
[2017-07-12] MEDS: ALBUTEROL/IPRATROPIUM 2.5mg-0.5mg/3ml NEB AEROSOL SCH ×3 (07:24→15:19)
[2017-07-12 07:25] VITALS: RESP 18
[2017-07-12] MEDS ORDERED: PredniSONE 20 MG TABLET PO SCH (08:00)
[2017-07-12] MEDS: GUAIFENESIN LA 600 MG TABLET PO SCH (08:37)
[2017-07-12] MEDS: LOSARTAN 50 MG TABLET PO SCH (08:37)
[2017-07-12] MEDS: OMEPRAZOLE 20 MG CAPSULE PO SCH (08:38)
[2017-07-12] MEDS: ASPIRIN *EC* 81 MG TABLET PO SCH (08:38)
[2017-07-12] MEDS: CEFTRIAXONE 1 G in NS 100 ML IV SCH (08:38)
[2017-07-12] MEDS: INSULIN ASPART 100unit/ml INJECTION SQ PRN (11:43)
[2017-07-12 12:25] VITALS: O2SAT 94
[2017-07-12 15:17] VITALS: BP 176/94; PULSE 65; TEMP 97.6
--- NOTE | 2017-07-12 16:02 | Discharge Summary ---
Discharge Information Date of admission: 07/09/17 06:21 Anticipated date of discharge: 07/12/17 Attending Physician: Jenni Tyler MD Primary care physician: Corine Black, DO - Discharge Diagnosis (1) Pneumonia Status: Acute Acute discharge diagnoses Community-acquired pneumonia, improving Acute hypoxia, improving and able to maintain saturations on room air while at rest. Recommend to use 2 L of oxygen with activity COPD with acute exacerbation Arrhythmia, non-sustained wide complex tachycardia, metoprolol increased to 50 mg twice a day Steroid-induced hyperglycemia Comorbidities, stable CADY, on CPAP Hypertension Hyperlipidemia History of gastric ulcers and GERD - Laboratory Labs: 07/12/17 04:32 07/12/17 04:32 - Microbiology Microbiology 07/09/17 15:51 Sputum, Expectorated Sputum Culture - Final No Growth After 2 Days 07/09/17 19:40 Urine Streptococcus pneumoniae Antigen (M - Final - Radiology Radiology: Chest x-ray on 07/09/16 revealed left lower lobe pneumonia. A repeat chest x-ray on 07/10/17 showed persistent left lower lobe pneumonia with a new small parapneumonic effusion. History of Present Illness HPI: 71 year old female with a history of COPD presents to the emergency department this morning with 1 week of cough and congestion. She has been using inhalers at home without much benefit. She came to the ER seeking further treatment. A chest x-ray demonstrates left lower lobe pneumonia. She was given 4 DuoNeb treatments and an IM shot of dexamethasone. She was also given IV fluids. She could not be weaned from oxygen in the ER, and continues to require 2 - 3 liters of oxygen to maintain saturations. Lactic acid was acceptable. UA was negative. Influenza screening was negative. She is coming into the hospital for further treatment of community-acquired pneumonia. Objective Vital signs: Temperature 97.6 F 07/12/17 15:00 Pulse Rate 65 07/12/17 15:00 Respiratory Rate 18 07/12/17 15:19 Blood Pressure 176/94 H 07/12/17 15:00 Pulse Oximetry 94 07/12/17 15:00 Height/Weight/BMI: Height 1.63 m Weight 102.2 kg Body Mass Index 38.4 - Constitutional Present: no acute distress, well nourished, well developed - Routine HEENT Exam Head: Present: normocephalic Eye: Absent: conjunctival icterus, scleral injection ENT: Present: mucous membranes moist - Routine Respiratory Exam Present: decreased breath sounds, CTA bilaterally - Routine Cardiovascular Exam Present: RRR, S1, S2 - Routine Abdominal Exam Present: soft, normoactive bowel sounds, non distended, non tender - Routine Extremities Exam Present: no edema, pulses intact - Routine Musculoskeletal Exam Musculoskeletal: Present: moving extremities well - Routine Skin Exam Present: intact, dry, warm - Routine Neurological Exam Present: alert, oriented X3, normal speech - Routine Psychiatric Exam Present: normal affect, normal thought process, cooperative Hospital Course This is a general summary of the patient's hospital course. For more details refer to the complete medical record. Hospital course: She was admitted on 07/09/17 for community-acquired pneumonia of the left lower lobe with acute hypoxia and COPD with presumptive acute exacerbation. She was admitted to the medical floor and was started on Rocephin and azithromycin. She was started on IV Solu-Medrol. Respiratory therapy was consulted and DuoNeb and Pulmicort treatments were nebulized routinely. She was hyperglycemic and her diet was changed to a carb controlled diet. Sliding scale insulin was ordered. By the second hospital day, she was able to maintain saturations on room air while at rest for most of the day, but desaturated with activity. Strep pneumoniae antigen resulted as negative. White count increased to 15.4, thought to be steroid effect. By 07/11/17, Raven was feeling significantly better, though she had an asymptomatic run of tachycardia. 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 Her white count remained stable. She was able to consistently maintain her saturations on room air while at rest. Steroids were tapered to prednisone. She was given a dose of IV Lasix 1. On 07/12/17, she continued to improve. She stated she had some exertional shortness of breath, which was expected and minimal. Ambulatory oximetry showed that her oxygen saturations were maintained around 87-89% for most of the walk, and briefly dropped to 86%. She was able to recover to above 90% within 1-2 minutes. Her white count decreased back to a normal range at 9.2. She was medically stable for discharge home. She has oxygen at home already for use in CPAP, and she has enough tubing to continue to use it throughout her house with activity until her lungs recover from this acute illness. Recommend follow-up with Dr. Black within 1 week to have ambulatory oximetry rechecked and for follow-up chest x-ray and labs if indicated. She will also need follow up with Dr. Jenkins for further workup (ie echocardiogram and/or event monitor) of [facility] - case was discussed with him prior to discharge and he will plan on following up with Raven in his clinic. Will Rx Vantin 10 days to complete a 14-day course. Use oxygen at 2 L with activity. Continue prednisone taper. Patient verbalized an understanding and was discharged home in stable condition. Time spent with patient: discharge greater than 30 minutes Discharge Plan - Discharge Disposition Discharge Date: 07/12/17 Disposition: Discharged Home, Self-Care *Condition: Improved Reason For Visit (Visit label in EMR): CAP - Discharge Medications *Discharge Medications: New Metoprolol Tartrate [Lopressor] 50 mg PO BIDWM #60 tab PredniSONE [Deltasone] 40 mg PO WB #10 tab Cefpodoxime [Vantin] 200 mg PO BID #20 tab Continue Fluticasone/Salmeterol 500/50 [Advair 500-50Diskus] 1 disk IH BID #0 Tizanidine HCl 2 mg PO QID PRN #0 PRN Reason: PRN ORDERS Atorvastatin Calcium 40 mg PO HS #0 Losartan Potassium [Cozaar] 100 mg PO DAILY #0 Albuterol Sulfate [Proair Hfa] 1 puff INH Q4H PRN #0 PRN Reason: SHORTNESS OF AIR acetaminophen 300 mg-codeine 30 mg tablet 2 tab PO Q6H PRN PRN Reason: pain Prilosec OTC (Omeprazole magnesium) 20 mg tablet,delayed release 20 mg PO DAILY tab aspirin 81 mg tablet,delayed release 81 mg PO DAILY tab Discontinued Metoprolol Tartrate 25 mg PO BID #0 - Discharge Packet/Instructions *Diet: Minimize sweets and carbohydrates while on Prednisone. *Activity: Wear 2L of oxygen with activity at home. *Pain Management/Treatment: Continue home medications. *Wound Care: N/A *Expected Signs/Symptoms: Expect continued cough and some shortness of breath with exertion. If you become fatigued/winded with activity, please stop and rest until you feel adequately recovered. *Notify Physician if: Increased cough or worsened difficulty breathing. Fever/ chills. Mouth sores to suggest thrush. Diarrhea or abdominal cramps (signs of C. difficile). *During Business Hours Contact: [facility] - Dr. Black' office. *After Business Hours Contact: The on-call provider for Dr. Black. *Pending Lab/Results: No Pending Lab - Referrals/Follow Up *Referrals/Follow Up: Corine Black DO [Family Provider] - 1 Week (APPOINTMENT WITH CORINE BLACK ON AT10:20 AM WITH A 10:10 AM CHECK IN) Owen Jenkins MD [Physician] - 3 Days (call for follow up cintia) - Patient Handouts Patient Handouts: Community Acquired Pneumonia (GEN) - Dismissal Complete Discharge Instructions are:: Complete Physician Narrative - Narrative Physician: Jenni Tyler MD Attestation Narrative: Date: 07/12/17 Time: 1800 I have independently evaluated and examined this patient. I reviewed the chart, the patient's history, and the SUPERVISOR [employer]/PA's documented findings as above. We discussed and formulated the assessment and plan as above with additions as below: Mrs. Carpio seen earlier today at which time she described feeling well and significantly improved from admission/yesterday. She denied dyspnea and reports only minor exertional dyspnea today without cough or sputum production. She's had no further fever. Respirations were nonlabored with good airflow and breath sounds are clear. Cardiac rhythm was regular. Telemetry strips were reviewed extensively-persistently sinus rhythm since episode of wide-complex tachycardia yesterday; tachycardia was reviewed with Dr. Jenkins who asked that magnesium be screened to assure that it was normal prior to discharge. Magnesium was 2.5. There's been no recurrence of the tachyarrhythmia following resumption of the patient's usual dose metoprolol 50 mg twice a day. She'll follow-up with Dr. Jenkins in the near future for reassessment. Stable for discharge on oral antibiotics as noted above.
== END 2017-07-12 17:23 | disposition home or self-care (01) | DRG 190 ==
LOC: ED 03:35 → SUATTDRO 06:21 → MED 06:21
PROVIDERS: ADMIT Hospitalist; ATTEND Internal Medicine

== ENCOUNTER 2017-11-03 07:27 | Observation (INO) ==
[2017-11-03] MEDS ORDERED: ALBUTEROL/IPRATROPIUM 2.5mg-0.5mg/3ml NEB AEROSOL ONE ×2 (07:51→09:24)
--- NOTE | 2017-11-03 07:51 | Emergency Department Report ---
General Adult HPI - General Chief complaint: Shortness of Breath/Dyspnea Stated complaint: Difficulty breathing,chills,soa Time Seen by Provider: 11/03/17 07:50 Source: patient Mode of arrival: ambulatory Limitations: no limitations - History of Present Illness HPI narrative: 72-year-old female presents to the emergency department with the chief complaint of a cough productive of yellow mucus. Patient is also feeling short of breath. She has a history of COPD with similar symptoms in the past. Patient noted onset of symptoms one day ago while at home. Patient also notes a typical dull moderate headache that is generalized in nature without radiation. She states that she has also had one episode of nausea and vomiting when she became choked up on her nasal secretions. She did note improvement with an albuterol treatment given by EMS prior to arrival to the emergency department. No other complaints or associated symptoms. Symptoms have been persistent in nature since onset. - Related Data Home Medications Medication Instructions Recorded Confirmed Fluticasone/Salmeterol 500/50 1 disk IH BID #0 10/10/09 11/03/17 [Advair 500-50Diskus] Tizanidine HCl 2 mg PO QID PRN #0 05/26/16 11/03/17 Atorvastatin Calcium 40 mg PO HS #0 06/10/16 11/03/17 Albuterol Sulfate [Proair Hfa] 1 puff INH Q4H PRN #0 10/04/16 11/03/17 Losartan Potassium [Cozaar] 100 mg PO DAILY #0 10/04/16 11/03/17 Amlodipine [Norvasc] 5 mg PO DAILY 08/03/17 11/03/17 APAP/Codeine 300/30 (#3) [Tylenol 2 tab PO Q4H PRN 11/03/17 11/03/17 with Codeine #3 (300/30)] Aspirin [Adult Aspirin] 81 mg PO DAILY 11/03/17 11/03/17 Omeprazole Magnesium [Prilosec Otc] 20 mg PO DAILY 11/03/17 11/03/17 Umeclidinium Ucon [Incruse 1 puff IH PM 11/03/17 11/03/17 Ellipta] Previous Rx's Medication Instructions Recorded Metoprolol Tartrate [Lopressor] 50 mg PO BIDWM #60 tab 07/12/17 Allergies Allergy/AdvReac Type Severity Reaction Status Date / Time Sulfa (Sulfonamide Allergy Unknown Nausea and Verified 11/03/17 09:18 Antibiotics) Vomiting amoxicillin [From Augmentin] Allergy Nausea and Verified 11/03/17 09:29 Vomiting clavulanic acid Allergy Nausea and Verified 11/03/17 09:29 [From Augmentin] Vomiting Review of Systems Constitutional: Denies: fever, weakness Eyes: Denies: eye pain, vision change ENT: Denies: ear pain, throat pain Cardiovascular: Denies: chest pain, palpitations Respiratory: Reports: cough, dyspnea, wheezes. Denies: hemoptysis Gastrointestinal: Reports: nausea, vomiting. Denies: abdominal pain, diarrhea Genitourinary: Denies: urgency, dysuria Musculoskeletal: Denies: back pain, arthralgia Integumentary: Denies: erythema, rash Neurological: Reports: headache (typical). Denies: numbness, paresthesias Psychiatric: Denies: anxiety, depression Endocrine: Denies: polydipsia, polyuria Hematological/Lymphatic: Denies: easy bruising, lymphadenopathy Allergic/Immunologic: Denies: facial swelling, urticaria PFSH Patient Stated Medical History Cataracts Yes: removed bl Angina Yes Hypertension Yes Other Cardiology Yes: VASCULAR NECROSIS UPPER LEFT ARM Chronic Obstructive Pulmonary Yes Disease (COPD) Pneumonia Yes: 2017 Sleep Apnea Yes Other Respiratory Yes: benign growth removed from right lung Gastroesophageal Reflux Yes Disease Ulcer Yes Clostridium Difficile Yes: 2015 MRSA Yes: 2015 Shingles Yes Anesthesia Reactions Yes: "difficult to put to sleep" Clinic Medical History (Last Reviewed 04/26/17 @ 16:21 by Joanna Caceres MD) CADY (obstructive sleep apnea) (Chronic Medical) COPD (chronic obstructive pulmonary disease) (Chronic Medical) MRSA (methicillin resistant Staphylococcus aureus) (Inactive Medical) Anemia (Chronic Medical) Colon polyps (Chronic Medical) Cataract (Resolved Medical) Hypertension (Chronic Medical) Chest pain (Chronic Medical) Surgical History: Heart Stents. Appendectomy. Hysterectomy. 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 Family History: Family History (Last Reviewed 04/26/17 @ 16:21 by Joanna Caceres MD) Mother Liver cancer Father Cancer of lung Family History Updates: Non contributory - Social History Smoking status: Former smoker Substance use type: does not use Alcohol intake: former Alcohol intake frequency: does not drink Household members: spouse Current occupational status: retired Physical Exam - Limitations Limitations: no limitations - General General appearance: alert, in no apparent distress - Normal Exams: Head:: Normocephalic without trauma Eyes:: Pupils are PERRLA w/ EOMI, No scleral icterus, irritation, or foreign bodies noted ENMT:: No facial trauma, nasal exudates, pharyngeal erythema, or exudates are noted Dental: No fractured, loose, or missing teeth noted Neck:: Full range of motion, without adenopathy, JVD, bruits or thyromegaly Chest/Respirations:: with good airflow (Bilateral end expiratory wheezes with coarse lung sounds. ), and symmetry bilaterally Cardiovascular:: Regular rate and rhythm, without murmur or gallop, Pulses 2+ all extremities, capillary refill, <2 seconds all extremities Abdomen:: Bowel sounds positive, soft, non-tender, non-distended, no hepatosplenomegaly, masses or bruits noted Lymphatic:: No lymphadenopathy, or lymphedema noted Musculoskeletal:: No tenderness, or deformity noted, good range of motion, all extremities Integumentary:: No rashes, hives, or bruising noted, hair and nails, without abnormality Neurological:: Patient is alert, and oriented, cranial nerves, motor/sensory/ cerebellar, exams w/o gross deficits, to observation Psychiatric:: Patient exhibits, appropriate attention, emotion and affect Course Vital Signs Temperature 98.6 F 11/03/17 07:31 Pulse Rate 84 11/03/17 07:31 Respiratory Rate 22 11/03/17 07:31 Blood Pressure 148/79 H 11/03/17 07:31 Pulse Oximetry 94 11/03/17 07:31 Temperature 98.6 F 11/03/17 07:31 Pulse Rate 90 11/03/17 10:00 Respiratory Rate 28 H 11/03/17 09:36 Blood Pressure 140/67 H 11/03/17 10:00 Pulse Oximetry 95 11/03/17 10:00 Medical Decision Making - [facility] Narrative Medical decision making narrative: Labs/imaging were discussed in detail with the patient and family and questions are answered. Patient was given multiple breathing treatments in the emergency department with improvement of symptoms. On her home O2 settings patient was at 86-87% in the emergency department, her oxygen level was increased to 4 L by nasal cannula. I have no current source of infection at this time requiring antibiotic therapy. She was given Solu-Medrol 125 mg IV 1 in addition to the breathing treatments. Dr. Troncoso has requested to start the Levaquin 750 mg IV 1 for treatment of COPD exacerbation himself. Patient is admitted to the service of the hospitalist due to requiring increasing oxygen demand. No further orders from accepting physician who is in agreement with the current plan of management. - Differential Diagnosis COPD, Asthma, PNA, Viral syndrome - Lab Data Result diagrams: 11/03/17 07:59 11/03/17 07:59 Lab Results 11/03/17 11/03/17 Range/Units 07:59 07:59 WBC 14.9 H (4.5-11.0) T/MM3 RBC 4.31 (4.00-5.20) M/MM3 Hgb 13.5 (12-16) GM/DL Hct 41.5 (36-46) % MCV 96.3 (80-100) UM3 MCH 31.3 (26-34) UUG MCHC 32.5 (31-37) GM/DL RDW Std Deviation 48.2 (36.9-50.2) FL Plt Count 255 (130-400) T/MM3 MPV 9.1 L (9.4-12.4) UM3 Immature Gran % (Auto) 0.3 (0.0-0.5) % Neut % (Auto) 83.1 H (33-66) % Lymph % (Auto) 9.5 L (23-45) % [place] % (Auto) 6.4 (0-9.0) % Eos % (Auto) 0.5 (0-4) % Baso % (Auto) 0.2 (0-2) % Neut # (Auto) 12.4 H (1.8-7.7) T/MM3 Lymph # (Auto) 1.4 (1-4.8) T/MM3 [place] # (Auto) 1.0 H (0-0.8) T/MM3 Eos # (Auto) 0.1 (0-0.5) T/MM3 Baso # (Auto) 0.0 (0-0.2) T/MM3 Abs Immat Gran (auto) 0.04 H (0.00-0.03) T/MM3 Turbidity < 20 (0-20) Sodium 142 (134-144) MEQ/L Potassium 3.8 (3.6-5) MEQ/L Chloride 109 H (98-107) MEQ/L Carbon Dioxide 19 L (22-30) MEQ/L Anion Gap 14 (5-15) meq/L BUN 20.0 H (7-17) MG/DL Creatinine 0.8 (0.7-1.2) mg/dL GFR Calculation 70 BUN/Creatinine Ratio 25 (6-26) RATIO Glucose 121 H (65-110) MG/DL Calculated Osmolality 277 (261-280) MOSM/KG Calcium 9.9 (8.4-10.2) MG/DL Total Bilirubin 0.80 (0.20-1.30) MG/DL Icterus Index < 2 (0-7) AST 26 (14-36) U/L ALT 26 (1-35) U/L Alkaline Phosphatase 101 (38-126) U/L Troponin I < 0.012 (0-0.12) ng/ml NT-Pro-B Natriuret Pep 713 H (0-175) pg/mL Total Protein 7.8 (6.3-8.2) g/dL Albumin 4.7 (3.5-5.0) g/dL Globulin 3.1 (2.4-3.6) G/DL Albumin/Globulin Ratio 1.5 (1.1-2.2) RATIO Specimen Hemolysis < 15 (0-25) - Radiology Data CXR - No acute processes. - EKG Data EKG #1 EKG results narrative: Sinus Rhythm. 86 bpm. No STEMI. Non-specific ST Changes. Disposition Clinical Impression: COPD exacerbation Condition: Improved Time of Disposition: 09:20 (Admit. Dr. Troncoso. ) - Seen By: physician
--- NOTE | 2017-11-03 08:19 | XRay Report ---
Indication: cough PROCEDURE: XR chest 1V: Encounter: Initial Comparison: September 16, 2017 Findings: The lungs are stable in appearance without new focal airspace consolidation. Emphysema noted with chronic bibasilar scarring greater on the right. There is no pleural effusion or pneumothorax. The heart size, pulmonary vascularity and mediastinal contours are unchanged. Old right rib deformities. IMPRESSION: Stable appearance of the chest without acute cardiopulmonary disease. .
[2017-11-03] MEDS ORDERED: ONDANSETRON 4 MG/2 ML INJECTION IVP ONE (09:04)
[2017-11-03] MEDS: SALINE FLUSH 10ml SYRINGE IVF PRN ×3 (09:10→15:37)
[2017-11-03] MEDS ORDERED: METHYLPREDNISOLONE SOD SUCC 125mg/2ml INJECTION IVP ONE (09:23)
[2017-11-03] MEDS ORDERED: FentaNYL 100 MCG/2 ML INJECTION IVP ONE (09:31)
[2017-11-03] MEDS ORDERED: LEVOFLOXACIN PB 750 MG/150 ML BAG IV SCH (09:31)
[2017-11-03] MEDS ORDERED: FentaNYL 250 MCG/5 ML INJECTION IVP ONE ×2 (10:00)
--- NOTE | 2017-11-03 10:16 | History & Physical Report ---
History of Present Illness Date: 11/03/17 Chief complaint: Dyspnea HPI: Sonya is a pleasant 72 yr old female who is known to the hospitalist from previous admissions earlier this year. She Has been under the primary care of Dr. Corine Hinojosa. Patient does have chronic COPD generally requiring 2 liters of oxygen by nasal cannula to maintain saturations. Patient reports that she has had a cough for the past 2 weeks. Yesterday she developed increased shortness of breath accompanied with nausea and headache. This morning symptoms have become more severe in nature, prompting her to call EMS and transport to the emergency room visit for acute evaluation and treatment. It is reported that 02 sats on were low (in the 80s) on her baseline on 2 Liters of home oxygen and she was required 4 liter since that time. In the emergency room WBC count was found to be elevated at 14.9. Chemistry panel unremarkable, troponin negative, proBNP 7. 13. Venous lactate 0.8, pro calcitonin pending. Chest x-ray did not reveal acute infiltrate. She was found to have significant wheezing with tachypnea, breathing 20-32 times a minute. Patient was given 2 DuoNeb breathing treatments, Solu-Medrol 125 milligrams IV for pulmonary inflammation. She was also given Zofran for nausea and fentanyl for pain. The significance and her respiratory distress, accompanied with increased oxygen needs. The hospitalist services were contacted and accepted. Patient for outpatient observation for further evaluation and treatment. Patient does report she had influenza in August and since that time has had worsening lung function. She reports she was seen by a yeast culture developer in [place] , however, she is unsure of his name. She reports that her pulmonary function following influenza decreased from 85-65. Review of Systems All systems PM: 10-point ROS was reviewed, no additional remarkable complaints except - Constitutional Constitutional: Present: fatigue - Respiratory Respiratory: Present: cough, dyspnea, wheezing - Gastrointestinal Gastrointestinal: Present: nausea, vomiting Past Medical History Medical History: Medical History (Last Updated 11/03/17 @ 10:21 by Alisa Horan APRN) CADY (obstructive sleep apnea) (Chronic) COPD (chronic obstructive pulmonary disease) (Chronic) MRSA (methicillin resistant Staphylococcus aureus) (Inactive) Anemia (Chronic) Colon polyps (Chronic) Cataract (Resolved) Hypertension (Chronic) Chest pain (Chronic) CAD (coronary artery disease) Hx of Clostridium difficile infection Hx of duodenal ulcer Oxygen dependent Surgical History: Heart Stents- 1993. Appendectomy. Hysterectomy. Benign tumor resection of right lung. Tonsillectomy. D&C 6. Bilateral cataract resection. Breast lump resection. EGD-09/2016. Colonoscopy-2008 Family History: Family History Mother Liver cancer Father Cancer of lung Family History: As Above - Social History Smoking status: Former smoker (Quit at age 58) Substance use type: does not use Alcohol intake frequency: does not drink Housing: house Household members: spouse Current occupational status: retired Social history: PCP Dr Black Medications Home Medications Medication Instructions Recorded Confirmed Type Fluticasone/Salmeterol 500/50 1 disk IH BID #0 10/10/09 11/03/17 History [Advair 500-50Diskus] Tizanidine HCl 2 mg PO QID PRN #0 05/26/16 11/03/17 History Atorvastatin Calcium 40 mg PO HS #0 06/10/16 11/03/17 History Albuterol Sulfate [Proair Hfa] 1 puff INH Q4H PRN #0 10/04/16 11/03/17 History Losartan Potassium [Cozaar] 100 mg PO DAILY #0 10/04/16 11/03/17 History Metoprolol Tartrate [Lopressor] 50 mg PO BIDWM #60 tab 07/12/17 11/03/17 Rx Amlodipine [Norvasc] 5 mg PO DAILY 08/03/17 11/03/17 History APAP/Codeine 300/30 (#3) [Tylenol 2 tab PO Q4H PRN 11/03/17 11/03/17 History with Codeine #3 (300/30)] Aspirin [Adult Aspirin] 81 mg PO DAILY 11/03/17 11/03/17 History Omeprazole Magnesium [Prilosec Otc] 20 mg PO DAILY 11/03/17 11/03/17 History Umeclidinium [place] [Incruse 1 puff IH PM 11/03/17 11/03/17 History Ellipta] Allergies Allergy/AdvReac Type Severity Reaction Status Date / Time Sulfa (Sulfonamide Allergy Unknown Nausea and Verified 11/03/17 09:18 Antibiotics) Vomiting amoxicillin [From Augmentin] Allergy Nausea and Verified 11/03/17 09:29 Vomiting clavulanic acid Allergy Nausea and Verified 11/03/17 09:29 [From Augmentin] Vomiting Exam Vital Signs: Temperature 98.6 F 11/03/17 07:31 Pulse Rate 90 11/03/17 09:01 Respiratory Rate 28 H 11/03/17 09:36 Blood Pressure 141/67 H 11/03/17 09:01 Pulse Oximetry 98 11/03/17 09:36 Telemetry Rhythm: Sinus Rhythm - Constitutional Present: moderate distress, well nourished, well developed - Routine HEENT Exam Eye: Present: EOMI ENT: Present: mucous membranes moist, dentition normal - Routine Respiratory Exam Present: wheezes Comments: Crackles - Routine Cardiovascular Exam Present: RRR, S1, S2. Absent: murmur - Routine Abdominal Exam Present: soft, normoactive bowel sounds, non distended. Absent: tenderness - Routine Extremities Exam Present: normal capillary refill Comments: Ecchymosis to left foot-old injury as she shut her foot in a car door last week - Routine Skin Exam Present: intact, dry, warm, ecchymosis (left foot) - Routine Neurological Exam Present: alert, oriented X3, CN II-XII intact, moving all extremities - Routine Psychiatric Exam Present: normal affect, normal thought process, cooperative Results - Labs CBC & Chem 7: 11/03/17 07:59 11/03/17 07:59 Assessment and Plan (1) COPD exacerbation Current visit: Yes Status: Acute Assessment and Plan: Impression Acute COPD exacerbation Acute on chronic respiratory failure with worsening hypoxia- requiring 4 liters Leukocytosis,- present on admission CAD HTN Hypercholesterolemia Obstructive sleep apnea GERD with hx of duodenal ulcer Depression Obesity with BMI 37.0 History of C. difficile colitis Plan Admit patient observation status under the care of Dr Facundo Garza QID and Pulmicort BID scheduled. Consultation to Dr Shin for further pulmonary evaluation and recommendations. Will continue with Solu-Medrol and 25 milligrams IV every 6 hours for pulmonary inflammation. Phenergan with codeine cough syrup as needed every 4 hours. Obtain Blood cultures and sputum culture. Levaquin IV daily for pulmonary antimicrobial coverage. Continue with oxygen therapy, currently requiring 4 liters. However, baseline is 2 liters. Will monitor patient. Cardiac telemetry. Monitor blood pressure, continue on home dosing of Cozaar 100 milligrams daily and Norvasc 5 milligrams daily. Will recheck CBC and BMP tomorrow morning to follow blood counts, renal function and electrolytes. SCDs to bilateral lower extremity DVT prophylaxis. Patient does request to be a full code and this order is written. Will discuss further orders and plan of care with attending, Dr. Loredo. At time of discharge medical care will return to primary care provider, Dr Black. DVT Prophylaxis: SCD's GI Prophylaxis: Omeprazole Resuscitation Status: Full Code - Time spent with patient Time with patient PN: 50 minutes - Physician Narrative Physician: Darian Loredo MD Narrative: Date: 11/03/17 Time: 1739 Have independently interviewed and examined pt. Chart reviewed. Case discussed with ED physician and my SCENARIO WRITER. Care plan developed with my supervision; agree with above. Presents to ED with increasing cough, congestion, and SOA. Problems have been brewing for the last 2 weeks, but dramatically increased today. Hard to get air in due to congestion. Still SOA despite increasing O2. Mobilizing some sputum. Notes increasing nausea with appetite. Bowels stable-no diarrhea or constipation. Not having urinary pain or discomfort. No pain with breathing. Much more weak and fatigued-efforts to move and be active very taxing. Seen in ED. RR increased and O2 sat decreased despite increasing O2 delivery. WBC with elevation. CXR not showing acute infiltrate. Place in OBS to help improve symptoms. Lungs: decreased breath sound, less labored breathing at time of my interview and exam. CV: regular AB: soft nt/ND +BS MSE: awake, alert, appropriate Plan: OBS to initiate aggressive treatment for COPD exacerbation. Continue with levofloxacin 750mg IV daily, was started in ED. Continue Solu-Medrol 125mg IV every 6 hours. Neb treatment of DuoNeb and Budesonide. Acapella to help loosen secretions. Supplemental O2 to keep sats above 90%. Consult with Dr Shin for pulm evaluation. Full code per her requests. Care to return to Dr Black at time of discharge. Will reassess respiratory status tomorrow to help determine in patient able for discharge. Hospital Course Summary Disclaimer: The visit summary below is not to be considered part of the above Progress Note. Hospital Course: Impression Acute COPD exacerbation Acute on chronic respiratory failure with worsening hypoxia- requiring 4 liters Leukocytosis,- present on admission CAD HTN Hypercholesterolemia Obstructive sleep apnea GERD with hx of duodenal ulcer Depression Obesity with BMI 37.0 History of C. difficile colitis Plan Admit patient observation status under the care of Dr Loredo. Levaquin IV daily for pulmonary antimicrobial coverage. Started in ED. Will continue with Solu-Medrol at 125 milligrams IV every 6 hours for pulmonary inflammation. DuoNeb QID and Pulmicort BID scheduled. Acapella QID to help loosen secretions. Continue with oxygen therapy, currently requiring 4 liters. However, baseline is 2 liters. Phenergan with codeine cough syrup as needed every 4 hours. Ricola prn. Obtain Blood cultures and sputum culture. Consultation to Dr Shin for further pulmonary evaluation and recommendations. Will monitor patient. 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 Continue chronic home medications. SCDs to bilateral lower extremity DVT prophylaxis. Will recheck CBC and BMP tomorrow morning to follow blood counts, renal function and electrolytes. Patient does request to be a full code and this order is written. At time of discharge medical care will return to primary care provider, Dr Black.
[2017-11-03 10:29] VITALS: BMI 36.9
[2017-11-03] MEDS ORDERED: PROCHLORPERAZINE 10 MG/2 ML INJECTION IVP PRN (10:29)
[2017-11-03] MEDS ORDERED: PROMETHAZINE/CODEINE ORAL LIQUID 5ml PO PRN (10:30)
[2017-11-03] MEDS ORDERED: MENTHOL COUGH DROPS (RICOLA) MM PRN (10:53)
[2017-11-03] MEDS: ALBUTEROL/IPRATROPIUM 2.5mg-0.5mg/3ml NEB AEROSOL SCH ×3 (12:04→19:35)
[2017-11-03] MEDS: METHYLPREDNISOLONE SOD SUCC 125mg/2ml INJECTION IVP SCH ×2 (15:36→20:58)
[2017-11-03] MEDS: APAP/CODEINE 300 MG/30 MG TABLET PO PRN (15:37)
[2017-11-03] MEDS: BUDESONIDE INH.SOLN 0.5mg/2ml NEB AEROSOL SCH (19:36)
[2017-11-03] MEDS ORDERED: --POM--ATORVASTATIN 40 MG TABLET PO SCH (21:00)
--- NOTE | 2017-11-03 23:20 | Pulmonology Consult Note ---
History of Present Illness Consult date: 11/03/17 Reason for consult: dyspnea, COPD Chief complaint: SOB, wheezing History of present illness: This is 72 yo female with a Hx of COPD on 2L oxygen per [place]. She sees Dr. Angela beavers for search lead in [place], states she had Influenza in August and was noted to have worsening lung function with an FEV1 85% prior to influenza and then 65 % afterwards. States she usually takes advair 500/50 Bid and incruse daily. She states the past couple weeks she has had an increase in her cough and SOB, these symptoms worsened prior to admit with accompanied nausea and she called EMS. Per report her 02 sats on 2L were in the 80's, she wa tachycardic and tachypnic. Oxygen was increased to 4L and she was started on IV solumedrol along withh breathing treatments. WBC was 14.9, troponin negative, proBNP 7, Venous lactate 0.8, pro calcitonin pending, Chest x-ray with no acute infiltrate. She was admitted for further evaluation and treatment. We were consulted for her pulmonary issues and appreciate the consult. Review of Systems - Constitutional Constitutional: Present: fatigue, headache(s). Absent: anorexia - EENT Eyes: Absent: blurry vision, change in vision Nose: Absent: change in smell - Cardiovascular Cardiovascular: Present: dyspnea on exertion. Absent: chest pain, palpitations - Respiratory Respiratory: Present: cough, dyspnea, dyspnea on exertion, wheezing, chest congestion - Gastrointestinal Gastrointestinal: Absent: abdominal pain, change in bowel habits - Musculoskeletal Musculoskeletal: Absent: abnormal gait, arthralgias - Integumentary/Breasts Integumentary: Absent: change in hair, change in nails - Neurological Neurological: Absent: abnormal gait, abnormal movements - Psychiatric Psychiatric: Present: anxiety. Absent: abnormal sleep pattern - Endocrine Endocrine: Absent: cold intolerance, excessive sweating - Hematologic/Lymphatic Hematologic/Lymphatic: Absent: easy bleeding, easy bruising - Allergic/Immunologic Allergic/Immunologic: Absent: tongue swelling, throat swelling PFS Patient Stated Medical History Cataracts Yes: removed bl Angina Yes Hypertension Yes Other Cardiology Yes: VASCULAR NECROSIS UPPER LEFT ARM Chronic Obstructive Pulmonary Yes Disease (COPD) Pneumonia Yes: 2017 Sleep Apnea Yes Other Respiratory Yes: benign growth removed from right lung Gastroesophageal Reflux Yes Disease Ulcer Yes Clostridium Difficile Yes: 2015 MRSA Yes: 2015 Shingles Yes Anesthesia Reactions Yes: "difficult to put to sleep" Post Menopausal Yes Clinic Medical History (Last Updated 11/03/17 @ 10:21 by Alisa Horan APRN) CADY (obstructive sleep apnea) (Chronic Medical) COPD (chronic obstructive pulmonary disease) (Chronic Medical) MRSA (methicillin resistant Staphylococcus aureus) (Inactive Medical) Anemia (Chronic Medical) Colon polyps (Chronic Medical) Cataract (Resolved Medical) Hypertension (Chronic Medical) Chest pain (Chronic Medical) CAD (coronary artery disease) (Acute Medical) Hx of Clostridium difficile infection (Acute Medical) Hx of duodenal ulcer (Acute Medical) Oxygen dependent (Acute Medical) Surgical History: Heart Stents- 1993. Appendectomy. Hysterectomy. Benign tumor resection of right lung. Tonsillectomy. D&C 6. Bilateral cataract resection. Breast lump resection. EGD-09/2016. Colonoscopy-2008 Family History: Family History (Last Reviewed 04/26/17 @ 16:21 by Joanna Caceres MD) Mother Liver cancer Father Cancer of lung Family History Updates: Non contributory - Social History Smoking status: Former smoker (Quit at age 58) Substance use type: does not use Alcohol intake: former Alcohol intake frequency: does not drink Housing: house Household members: spouse Current occupational status: retired Medications Home Medications Medication Instructions Recorded Confirmed Type Fluticasone/Salmeterol 500/50 1 disk IH BID #0 10/10/09 11/03/17 History [Advair 500-50Diskus] Tizanidine HCl 2 mg PO QID PRN #0 05/26/16 11/03/17 History Atorvastatin Calcium 40 mg PO HS #0 06/10/16 11/03/17 History Albuterol Sulfate [Proair Hfa] 1 puff INH Q4H PRN #0 10/04/16 11/03/17 History Losartan Potassium [Cozaar] 100 mg PO DAILY #0 10/04/16 11/03/17 History Metoprolol Tartrate [Lopressor] 50 mg PO BIDWM #60 tab 07/12/17 11/03/17 Rx Amlodipine [Norvasc] 5 mg PO DAILY 08/03/17 11/03/17 History APAP/Codeine 300/30 (#3) [Tylenol 2 tab PO Q4H PRN 11/03/17 11/03/17 History with Codeine #3 (300/30)] Aspirin [Adult Aspirin] 81 mg PO DAILY 11/03/17 11/03/17 History Omeprazole Magnesium [Prilosec Otc] 20 mg PO DAILY 11/03/17 11/03/17 History Umeclidinium [place] [Incruse 1 puff IH PM 11/03/17 11/03/17 History Ellipta] Allergies Allergy/AdvReac Type Severity Reaction Status Date / Time Sulfa (Sulfonamide Allergy Unknown Nausea and Verified 11/03/17 09:18 Antibiotics) Vomiting amoxicillin [From Augmentin] Allergy Nausea and Verified 11/03/17 09:29 Vomiting clavulanic acid Allergy Nausea and Verified 11/03/17 09:29 [From Augmentin] Vomiting Exam Vital signs: Temperature 96.0 F L 11/03/17 15:51 Pulse Rate 84 11/03/17 15:53 Respiratory Rate 20 11/03/17 19:36 Blood Pressure 127/72 11/03/17 15:51 Pulse Oximetry 91 11/03/17 19:36 - Constitutional mild distress, morbidly obese - Routine HEENT Exam Head: Present: normocephalic, atraumatic Eye: Present: EOMI, PERRL ENT: Present: mucous membranes moist - Routine Neck Exam Present: supple, full ROM, trachea midline - Routine Respiratory Exam Present: decreased breath sounds, wheezes. Absent: patient mechanically ventilated - Routine Cardiovascular Exam Present: RRR, S1, S2, no murmur - Routine Abdominal Exam Present: soft, normoactive bowel sounds - Routine Extremities Exam Present: no edema, non tender, full ROM. Absent: cyanosis, clubbing - Routine Back/Spine/Pelvis Exam Back/Spine: Present: full ROM - Routine Skin Exam Present: intact, dry Comments: bruising L ankle/foot - Routine Neurological Exam Present: alert, oriented X3, CN II-XII intact, moving all extremities - Routine Psychiatric Exam Present: normal affect, normal thought process, cooperative Results - Laboratory Findings CBC and BMP: 11/03/17 07:59 11/03/17 07:59 Abnormal lab findings: Abnormal Labs 11/03/17 09:39 Urine Ketones Trace A Ur Leukocyte Esterase Trace A - Diagnostic Findings Chest x-ray: image reviewed (CXR biliateral discoid atelectasis noted) Assessment and Plan - Assessment and Plan Acute on Chronic hypoxic Respiratory Failure COPD exacerbation [id number] 65% Leukocytosis CADY Plan: Pt currently on O2 at 4L per [place] and tolerating. Will start BT's with pulmicort BIPD and A/A q4hr. Will continue solumedrol but likely can decreased to 80mg q6hr in am. Currently on levaquin for exacerbation, BC's pending and awaiting sputum cx. WBC elevated, afebrile, CXR as noted, continue to follow - Time Spent With Patient Total time spent is greater than 50% in coordination of care (as documented) at patient's floor/unit and/or counseling patient: 25 - 35 minutes
[2017-11-04] MEDS: METHYLPREDNISOLONE SOD SUCC 125mg/2ml INJECTION IVP SCH ×2 (03:33→08:49)
[2017-11-04] MEDS: SALINE FLUSH 10ml SYRINGE IVF PRN (03:34)
[2017-11-04] MEDS: APAP/CODEINE 300 MG/30 MG TABLET PO PRN ×2 (04:44→08:48)
[2017-11-04] MEDS ORDERED: --POM--OMEPRAZOLE 20 MG CAPSULE PO SCH (06:30)
[2017-11-04] MEDS: ALBUTEROL/IPRATROPIUM 2.5mg-0.5mg/3ml NEB AEROSOL SCH ×3 (06:57→14:43)
[2017-11-04] MEDS: BUDESONIDE INH.SOLN 0.5mg/2ml NEB AEROSOL SCH (06:57)
[2017-11-04 08:34] VITALS: BP 114/63; TEMP 97.3
[2017-11-04] MEDS ORDERED: --POM--LOSARTAN 100 MG TABLET PO SCH (09:00)
[2017-11-04] MEDS ORDERED: --POM--ASPIRIN *EC* 81 MG TABLET PO SCH (09:00)
[2017-11-04] MEDS ORDERED: --POM--AMLODIPINE 5 MG TABLET PO SCH (09:00)
[2017-11-04] MEDS ORDERED: LEVOFLOXACIN 750 MG TABLET PO SCH (09:32)
--- NOTE | 2017-11-04 10:44 | Progress Note ---
- Date 11/04/17 Subjective: Patient is seen in follow-up of COPD exacerbation. She reports she is feeling better today. She hopes to go home. She still has cough and shortness of breath , but improved. No nausea or vomiting or fever. She's had pain in her IV site nurses have asked to have this DC'd. She has received her IV Solu-Medrol today, but has not yet received her Levaquin IV. She is usually on 2 L of oxygen at home. Currently on 3 L. Objective Vital signs: Temperature 97.3 F 11/04/17 08:00 Pulse Rate 109 H 11/04/17 08:00 Respiratory Rate 18 11/04/17 08:48 Blood Pressure 114/63 11/04/17 08:00 Pulse Oximetry 97 11/04/17 08:00 Height/Weight/BMI: Height 1.63 m Weight 98.7 kg Body Mass Index 36.9 - Constitutional Present: no acute distress, well nourished, well developed - Routine HEENT Exam Head: Present: normocephalic, atraumatic - Routine Respiratory Exam Present: wheezes (coarse wheezes on expiration) - Routine Cardiovascular Exam Present: RRR, no murmur - Routine Abdominal Exam Present: soft, non distended, non tender - Routine Extremities Exam Present: no edema, normal capillary refill - Routine Skin Exam Present: dry, warm - Routine Neurological Exam Present: alert, oriented X3 - Routine Lymphatic Exam Lymphatic: Absent: adenopathy - Routine Psychiatric Exam Present: normal affect, cooperative Results - Labs CBC & Chem 7: 11/04/17 04:50 11/04/17 04:50 Microbiology Results: Microbiology 11/03/17 09:43 Peripheral/Iv Start Blood Culture - Preliminary No Growth After 1 Day 11/03/17 09:44 Peripheral/Iv Start Blood Culture - Preliminary No Growth After 1 Day Assessment and Plan (1) COPD exacerbation Current visit: Yes Status: Acute Assessment and Plan: Impression Acute COPD exacerbation Acute on chronic respiratory failure with worsening hypoxia- requiring 4 liters Leukocytosis,- present on admission CAD HTN Hypercholesterolemia Obstructive sleep apnea GERD with hx of duodenal ulcer Depression Obesity with BMI 37.0 History of C. difficile colitis Plan Convert from IV Solu-Medrol to prednisone 40 mg daily. Convert from IV Levaquin to po Levaquin. Blood culture shows no growth to date. Leukocytosis is improved despite IV steroids. She did have an increase in blood sugar with the steroids. Currently requiring 3 L of oxygen that sats are 95% greater. Will see if we can maintain back to her home dose of 2 L. Has had mild tachycardia likely related to steroid effect. Patient asymptomatic. Likely DC later today if she does well throughout the day. DVT Prophylaxis: SCD's Resuscitation Status: Full Code - Physician Narrative Physician: Darian Loredo MD Narrative: Date: 11/04/17 Time: 1343 Have independently interviewed and examined pt. Chart reviewed. Case discussed with my PA. Care plan developed with my supervision; agree with above. Doing much better today. Breathing easier-not as short of breath or congested. Still having some cough. No pain with breathing. No nausea. Denies f/c. Did well the therapy-the recommend ambulation therapy to help improve strength and endurance. Does feel up to going home. Lungs: decreased breath sound, but good air movement. No crackles/wheeze/ distress CV: regular AB: soft nt MSE: awake alert appropriate Plan: Medically stable for discharge to home. Will continue with levofloxacin 750mg daily for another 5 days. Prednisone 40mg daily for 5 days then decrease to 20mg daily for 1 week. May use albuterol neb treatment QID prn. F/U with Dr Black in 1 week, sooner as problems or need occur. See orders for details. Hospital Course Summary Disclaimer: The visit summary below is not to be considered part of the above Progress Note. Hospital Course: 11/03/17 Admit patient observation status under the care of Dr Loredo. Levaquin IV daily for pulmonary antimicrobial coverage. Started in ED. Will continue with Solu-Medrol at 125 milligrams IV every 6 hours for pulmonary inflammation. DuoNeb QID and Pulmicort BID scheduled. Acapella QID to help loosen secretions. Continue with oxygen therapy, currently requiring 4 liters. However, baseline is 2 liters. Phenergan with codeine cough syrup as needed every 4 hours. Ricola prn. Obtain Blood cultures and sputum culture. Consultation to Dr Shin for further pulmonary evaluation and recommendations. Will monitor patient. 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 Continue chronic home medications. SCDs to bilateral lower extremity DVT prophylaxis. Will recheck CBC and BMP tomorrow morning to follow blood counts, renal function and electrolytes. Patient does request to be a full code and this order is written. At time of discharge medical care will return to primary care provider, Dr Black. 11/04/17 Convert from IV Solu-Medrol to prednisone 40 mg daily. Convert from IV Levaquin to po Levaquin. Blood culture shows no growth to date. Leukocytosis is improved despite IV steroids. She did have an increase in blood sugar with the steroids. Currently requiring 3 L of oxygen that sats are 95% greater. Will see if we can maintain back to her home dose of 2 L. Has had mild tachycardia likely related to steroid effect. Patient asymptomatic. Doing well this afternoon. Breathing much improved. Did well with PT/OT. Medically stable for discharge to home. Will continue with levofloxacin 750mg daily for another 5 days. Prednisone 40mg daily for 5 days then decrease to 20mg daily for 1 week. May use albuterol neb treatment QID prn. Continue chronic inhalers. Acapella QID for 1 week, then as needed for congestion. F/U with Dr Black in 1 week, sooner as problems or need occur. See orders for details.
[2017-11-04] MEDS ORDERED: PredniSONE 20 MG TABLET PO SCH (12:00)
[2017-11-04 12:58] VITALS: PULSE 121
--- NOTE | 2017-11-04 14:06 | Discharge Summary ---
Discharge Information Date of admission: 11/03/17 09:31 Anticipated date of discharge: 11/04/17 Attending Physician: Darian Loredo MD Primary care physician: Corine Black DO Consults: Physician Consult: Lucian Shin Reason For Exam: COPD PT/OT - Discharge Diagnosis (1) COPD exacerbation Status: Acute Discharge diagnosis Acute COPD exacerbation Associated conditions and complications Acute on chronic respiratory failure with worsening hypoxia- requiring 4 liters Leukocytosis (POA) - resolved CAD HTN Hypercholesterolemia Obstructive sleep apnea treated with CPAP GERD with hx of duodenal ulcer Depression Obesity with BMI 37.0 History of C. difficile colitis - Laboratory Labs: Admit Lab 11/03/17 07:59 WBC 14.9 H Hgb 13.5 Hct 41.5 Plt Count 255 Neut % (Auto) 83.1 H Lymph % (Auto) 9.5 L Rains % (Auto) 6.4 Eos % (Auto) 0.5 Baso % (Auto) 0.2 Admit Lab 11/03/17 07:59 Sodium 142 Potassium 3.8 Chloride 109 H Carbon Dioxide 19 L Anion Gap 14 BUN 20.0 H Creatinine 0.8 GFR Calculation 70 BUN/Creatinine Ratio 25 Glucose 121 H Calculated Osmolality 277 Calcium 9.9 Total Bilirubin 0.80 AST 26 ALT 26 Alkaline Phosphatase 101 Troponin I < 0.012 NT-Pro-B Natriuret Pep 713 H Total Protein 7.8 Albumin 4.7 Globulin 3.1 Albumin/Globulin Ratio 1.5 11/04/17 04:50 11/04/17 04:50 - Microbiology Microbiology 11/03/17 09:43 Peripheral/Iv Start Blood Culture - Preliminary No Growth After 1 Day 11/03/17 09:44 Peripheral/Iv Start Blood Culture - Preliminary No Growth After 1 Day - Radiology Radiology: Date of Exam: 11/03/17 Type of Exam: XR chest 1V Findings: The lungs are stable in appearance without new focal airspace consolidation. Emphysema noted with chronic bibasilar scarring greater on the right. There is no pleural effusion or pneumothorax. The heart size, pulmonary vascularity and mediastinal contours are unchanged. Old right rib deformities. IMPRESSION: Stable appearance of the chest without acute cardiopulmonary disease. History of Present Illness HPI: Sonya is a pleasant 72 yr old female who is known to the hospitalist from previous admissions earlier this year. She Has been under the primary care of Dr. Corine Hinojosa. Patient does have chronic COPD generally requiring 2 liters of oxygen by nasal cannula to maintain saturations. Patient reports that she has had a cough for the past 2 weeks. Yesterday she developed increased shortness of breath accompanied with nausea and headache. This morning symptoms have become more severe in nature, prompting her to call EMS and transport to the emergency room visit for acute evaluation and treatment. It is reported that 02 sats on were low (in the 80s) on her baseline on 2 Liters of home oxygen and she was required 4 liter since that time. In the emergency room WBC count was found to be elevated at 14.9. Chemistry panel unremarkable, troponin negative, proBNP 7. 13. Venous lactate 0.8, pro calcitonin pending. Chest x-ray did not reveal acute infiltrate. She was found to have significant wheezing with tachypnea, breathing 20-32 times a minute. Patient was given 2 DuoNeb breathing treatments, Solu-Medrol 125 milligrams IV for pulmonary inflammation. She was also given Zofran for nausea and fentanyl for pain. The significance and her respiratory distress, accompanied with increased oxygen needs. The hospitalist services were contacted and accepted. Patient for outpatient observation for further evaluation and treatment. Patient does report she had influenza in August and since that time has had worsening lung function. She reports she was seen by a medical staff coordinator in [place] , however, she is unsure of his name. She reports that her pulmonary function following influenza decreased from 85-65. For complete details of the H&P refer to that document. Objective Vital signs: Temperature 97.3 F 11/04/17 08:00 Pulse Rate 121 H 11/04/17 08:00 Respiratory Rate 16 11/04/17 10:41 Blood Pressure 114/63 11/04/17 08:00 Pulse Oximetry 95 11/04/17 10:41 Height/Weight/BMI: Height 1.63 m Weight 98.7 kg Body Mass Index 36.9 Hospital Course This is a general summary of the patient's hospital course. For more details refer to the complete medical record. Hospital course: 11/03/17 Admit patient observation status under the care of Dr Loredo. Levaquin IV daily for pulmonary antimicrobial coverage. Started in ED. Will continue with Solu-Medrol at 125 milligrams IV every 6 hours for pulmonary inflammation. DuoNeb QID and Pulmicort BID scheduled. Acapella QID to help loosen secretions. Continue with oxygen therapy, currently requiring 4 liters. However, baseline is 2 liters. Phenergan with codeine cough syrup as needed every 4 hours. Ricola prn. Obtain Blood cultures and sputum culture. Consultation to Dr Shin for further pulmonary evaluation and recommendations. Will monitor patient. 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 Continue chronic home medications. SCDs to bilateral lower extremity DVT prophylaxis. Will recheck CBC and BMP tomorrow morning to follow blood counts, renal function and electrolytes. Patient does request to be a full code and this order is written. At time of discharge medical care will return to primary care provider, Dr Black. 11/04/17 Discharge Convert from IV Solu-Medrol to prednisone 40 mg daily. Convert from IV Levaquin to po Levaquin. Blood culture shows no growth to date. Leukocytosis is improved despite IV steroids. She did have an increase in blood sugar with the steroids. Currently requiring 3 L of oxygen that sats are 95% greater. Will see if we can maintain back to her home dose of 2 L. Has had mild tachycardia likely related to steroid effect. Patient asymptomatic. Doing well this afternoon. Breathing much improved. Did well with PT/OT. Medically stable for discharge to home. Will continue with levofloxacin 750mg daily for another 5 days. Prednisone 40mg daily for 5 days then decrease to 20mg daily for 1 week. May use albuterol neb treatment QID prn. Continue chronic inhalers. Acapella QID for 1 week, then as needed for congestion. F/U with Dr Black in 1 week, sooner as problems or need occur. See orders for details. Time spent with patient: discharge greater than 30 minutes Resuscitation Status: Full Code Discharge Plan - Discharge Disposition Discharge Date: 11/04/17 Disposition: 01 Discharged Home, Self-Care *Condition: Improved Reason For Visit (Visit label in EMR): COPD Exacerbation with hypoxia - Discharge Medications *Discharge Medications: New Levofloxacin [Levaquin] 750 mg PO ACB #5 tab PredniSONE [Deltasone 20 mg] 40 mg PO WB #17 tab Albuterol Neb (0.083%) [Proventil Neb (0.083%)] 2.5 mg AEROSOL QID PRN #1 box PRN Reason: Shortness Of Air/Wheezing Continue Metoprolol Tartrate [Lopressor] 50 mg PO BIDWM #60 tab Amlodipine [Norvasc] 5 mg PO DAILY Omeprazole Magnesium [Prilosec Otc] 20 mg PO DAILY Umeclidinium [place] [Incruse Ellipta] 1 puff IH PM Fluticasone/Salmeterol 500/50 [Advair 500-50Diskus] 1 disk IH BID #0 Tizanidine HCl 2 mg PO QID PRN #0 PRN Reason: PRN ORDERS Atorvastatin Calcium 40 mg PO HS #0 Losartan Potassium [Cozaar] 100 mg PO DAILY #0 Albuterol Sulfate [Proair Hfa] 1 puff INH Q4H PRN #0 PRN Reason: SHORTNESS OF AIR Aspirin [Adult Aspirin] 81 mg PO DAILY APAP/Codeine 300/30 (#3) [Tylenol with Codeine #3 (300/30)] 2 tab PO Q4H PRN PRN Reason: Pain - Discharge Packet/Instructions *Diet: Low sodium *Activity: As tolerated *Pain Management/Treatment: Continue prior home pain medications *Wound Care: N/A Additional Instructions: Use Acapella 4 times a day for 1 week, then as needed for congestion. Use 40mg (2 tablets) of Prednisone daily for 5 days, then decrease to 20mg daily for 7 days, then stop. Over the counter cough medications are okay to use. May use albuterol nebulized treatments 4 times a day as needed for wheezing. Continue your chronic inhalers. *Expected Signs/Symptoms: Gradual improvement of breathing. Decreasing cough and congestion. *Notify Physician if: Temp > 100.4. Increasing shortness of air. Pain with breathing. *During Business Hours Contact: Dr Black *After Business Hours Contact: Call [facility] Black or her covering provider contacted. *Pending Lab/Results: Follow up w/Provider (Blood cultures pending) - Referrals/Follow Up *Referrals/Follow Up: Corine Black DO [Primary Care Provider] - 1 Week (Hospital follow up for COPD exacerbation. ) - Patient Handouts - Dismissal Complete Discharge Instructions are:: Complete Physician Narrative - Narrative Physician: Darian Loredo MD Attestation Narrative: Date: 11/04/17 Time: 1403 I have independently interviewed and examined patient prior to discharge. See my progress note for details. Medically stable for discharge to home.
[2017-11-04 14:53] VITALS: RESP 20; O2SAT 96
[2017-11-05] MEDS ORDERED: PredniSONE 20 MG TABLET PO SCH (08:00)
== END 2017-11-04 14:10 | disposition home or self-care (01) ==
LOC: ED 07:27 → MED 07:27
PROVIDERS: ADMIT Hospitalist; ATTEND Hospitalist